=== PATIENT | female | born 1935 | race Caucasian/White ===

== ENCOUNTER 2023-10-09 18:44 | Inpatient (IN) ==
[2023-10-09] MEDS ORDERED: TYLENOL PO PRN (19:46)
[2023-10-09] MEDS ORDERED: OCEAN NASAL SPRAY NAS PRN (19:46)
[2023-10-09] MEDS ORDERED: VENTOLIN HFA IH PRN (19:55)
[2023-10-09] MEDS ORDERED: MIRALAX PO PRN (19:55)
[2023-10-09] MEDS ORDERED: CARAFATE PO SCH (20:00)
--- NOTE | 2023-10-09 20:00 | PCM ---
Date of Service Date Seen by Provider: 10/09/23 Time Seen by Provider: 08:30 Admit Day/Time Admission Date: 10/09/23 Admission Time: 19:46 Reason for Admission Chief Complaint: BILATERAL PNEUMONIA,ACUTE CVA Hospital Provider Hospital Provider: CORDELL MILNER PA-C, [facility] Primary Care Physician Primary Care Physician: JAIRON ROJAS History of Present Illness History of Present Illness: Patient was in the swingbed program and motivated with therapy. Continued to require oxygen at 2L, more with activity. She has continued to have dyspnea, worse with exertion. Today, 10/09 patient had right hand weakness/numbness. CT head suspicious for left sided CVA. Carotid US performed showing no significant stenosis, but mentions a mass. CT neck obtained showing thyroid nodule, but also mentions bilateral pneumonia. Patient is being transitioned to inpatient status for treatment of CVA and bilateral pneumonia. [facility] Medical History TIA (transient ischemic attack) G45.9 - Transient cerebral ischemic attack, unspecified (ICD-10) FHx: cholecystectomy Z83.79 - Family history of other diseases of the digestive system (ICD-10) Cataract H26.9 - Unspecified cataract (ICD-10) Thyroid disease E07.9 - Disorder of thyroid, unspecified (ICD-10) Stroke I63.9 - Cerebral infarction, unspecified (ICD-10) Osteoarthritis M19.90 - Unspecified osteoarthritis, unspecified site (ICD-10) Obesity E66.9 - Obesity, unspecified (ICD-10) CHF (congestive heart failure) I50.9 - Heart failure, unspecified (ICD-10) Melanoma C43.9 - Malignant melanoma of skin, unspecified (ICD-10) Hyperlipidemia E78.5 - Hyperlipidemia, unspecified (ICD-10) ABDIRASHID (generalized anxiety disorder) F41.1 - Generalized anxiety disorder (ICD-10) Depressed F32.A - Depression, unspecified (ICD-10) Allergic rhinitis J30.9 - Allergic rhinitis, unspecified (ICD-10) Cervical radiculopathy M54.12 - Radiculopathy, cervical region (ICD-10) COPD (chronic obstructive pulmonary disease) J44.9 - Chronic obstructive pulmonary disease, unspecified (ICD-10) Afib I48.91 - Unspecified atrial fibrillation (ICD-10) Hypertension I10 - Essential (primary) hypertension (ICD-10) GERD (gastroesophageal reflux disease) K21.9 - Gastro-esophageal reflux disease without esophagitis (ICD-10) MARCELO (obstructive sleep apnea) G47.33 - Obstructive sleep apnea (adult) (pediatric) (ICD-10) Surgical History Status post cardiac catheterization Z98.890 - Other specified postprocedural states (ICD-10) 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) H/O total hysterectomy Z90.710 - Acquired absence of both cervix and uterus (ICD-10) Family History FATHER Heart disease Mother Heart disease Social History Smoking and tobacco status: Never smoker Alcohol intake: never Allergies Allergies Allergy/AdvReac Type Severity Reaction Status Date / Time escitalopram [From Lexapro] AdvReac Verified 09/30/23 19:20 SERTRALINE AdvReac Uncoded 09/30/23 19:20 Current Medications Home Medications albuterol sulfate 90 mcg/actuation aerosol inhaler 2 inh inhalation Q6H PRN shortness of breath or wheezing 09/30/23 [History Confirmed 10/09/23 Last Taken Unknown] amiodarone 200 mg tablet 200 mg PO BID 09/30/23 [History Confirmed 10/09/23 Last Taken 10/09/23 08:00] aspirin 81 mg chewable tablet 81 mg PO DAILY 09/30/23 [History Confirmed 10/09/23 Last Taken 10/09/23 08:00] atorvastatin 80 mg tablet 80 mg PO BEDTIME 09/30/23 [History Confirmed 10/09/23 Last Taken 10/09/23 08:00] buspirone 30 mg tablet 30 mg PO BID 09/30/23 [History Confirmed 10/09/23 Last Taken 10/09/23 08:00] cetirizine 10 mg tablet 10 mg PO DAILY PRN allergy symptoms 09/30/23 [History Confirmed 10/09/23 Last Taken Unknown] cholecalciferol (vitamin D3) 50 mcg (2,000 unit) capsule 50 mcg PO DAILY 09/30/23 [History Confirmed 10/09/23 Last Taken 10/08/23 08:00] clopidogrel 75 mg tablet (Plavix) 75 mg PO DAILY 09/30/23 [History Confirmed 10/09/23 Last Taken 10/09/23 08:00] fluticasone propionate 50 mcg/actuation nasal spray,suspension (Allergy Relief (fluticasone)) 1 spray intranasal DAILY PRN allergy symptoms 09/30/23 [History Confirmed 10/09/23 Last Taken Unknown] glucosamine sulfate 500 mg tablet (Cidatrine (glucosamine)) 500 mg PO DAILY 09/30/23 [History Confirmed 10/09/23 Last Taken Unknown] ipratropium 0.5 mg-albuterol 3 mg (2.5 mg base)/3 mL nebulization soln 3 ml inhalation Q4H 09/30/23 [History Confirmed 10/09/23 Last Taken 10/09/23 14:00] metoprolol succinate 50 mg tablet,extended release 24 hr 50 mg PO DAILY 09/30/23 [History Confirmed 10/09/23 Last Taken 10/09/23 08:00] multivitamin 1 tab PO DAILY 09/30/23 [History Confirmed 10/09/23 Last Taken 10/09/23 08:00] pantoprazole 40 mg granules delayed-release for susp in packet 40 mg PO DAILY 09/30/23 [History Confirmed 10/09/23 Last Taken 10/09/23 18:00] polyethylene glycol 3350 17 gram oral powder packet 17 g PO DAILY PRN constipation 09/30/23 [History Confirmed 10/09/23 Last Taken 10/08/23 09:00] sacubitril 24 mg-valsartan 26 mg tablet (Entresto) 1 tab PO BID 09/30/23 [History Confirmed 10/10/23 Last Taken Unknown] vitamin B complex 1 tab PO DAILY 09/30/23 [History Confirmed 10/09/23 Last Taken 10/09/23 08:00] calcium 500 mg tablet 500 mg PO DAILY 10/05/23 [History Confirmed 10/09/23 Last Taken 10/09/23 08:00] sucralfate 1 gram tablet (Carafate) 1 g PO .achs 10/05/23 [History Confirmed 10/09/23 Last Taken 10/09/23 18:00] Home Acetaminophen (Acetaminophen 325 Mg Tablet) 650 mg PO Q4H PRN PRN Reason: Mild Pain Albuterol Sulfate (Albuterol Sulfate 8 Gm Inhaler) 2 puff IH Q6H PRN PRN Reason: sob Albuterol/Ipratropium (Ipratropium/Albuterol Vial.Neb) 3 ml NEB RTQID [facility] Last Admin: 10/10/23 10:00 Dose: 3 ml Amiodarone HCl (Amiodarone Hcl 200 Mg Tablet) 200 mg PO BID [facility] Last Admin: 10/10/23 08:23 Dose: 200 mg Aspirin (Aspirin 81 Mg Tab.Chew) 81 mg PO DAILY [facility] Last Admin: 10/10/23 08:23 Dose: 81 mg Atorvastatin Calcium (Atorvastatin Calcium 20 Mg Tablet) 80 mg PO BEDTIME [facility] Last Admin: 10/09/23 21:36 Dose: 80 mg Buspirone HCl (Buspirone Hcl 10 Mg Tablet) 30 mg PO BID [facility] Last Admin: 10/10/23 08:23 Dose: 30 mg Calcium Carbonate/Glycine (Calcium Carbonate 500 Mg Tab.Chew) 500 mg PO DAILY [facility] Last Admin: 10/10/23 08:23 Dose: 500 mg Cilostazol (Cilostazol 100 Mg Tablet) 50 mg PO BID [facility] Last Admin: 10/10/23 08:23 Dose: 50 mg Clopidogrel Bisulfate (Clopidogrel Bisulfate 75 Mg Tablet) 75 mg PO DAILY [facility] Last Admin: 10/10/23 08:23 Dose: 75 mg Fluticasone Propionate (Fluticasone Propionate 16 Gm Nasal [place]) 2 spray NESHA DAILY [facility] Last Admin: 10/10/23 08:24 Dose: 2 spray CEFEPIME 2 GM/D5W (Maxipime 2 Gm/50 Ml D5w) 2 gm in 50 mls @ 100 mls/hr IV Q12HR [facility] Stop: 10/12/23 19:59 Last Admin: 10/10/23 08:24 Dose: 100 mls/hr VANCOMYCIN/WATER FOR INJ (PEG) (Vancomycin 1.5 Gram/300 Ml Premix) 1.5 gm in 300 mls @ 200 mls/hr IV BEDTIME [facility] Stop: 10/13/23 20:59 Loratadine (Loratadine 10 Mg Tablet) 10 mg PO DAILY PRN PRN Reason: Allergy Symptoms Ondansetron HCl (Ondansetron Hcl/Pf 4 Mg/2 Ml Sdv) 4 mg IVP Q6H PRN PRN Reason: Nausea / Vomiting Pantoprazole Sodium (Pantoprazole Sodium 40 Mg Tablet.Dr) 40 mg PO BIDAC2 [facility] Last Admin: 10/10/23 05:45 Dose: 40 mg Polyethylene Glycol (Polyethylene Glycol 17 Gm Powd.Pack) 17 gm PO DAILY PRN PRN Reason: Constipation Saccharomyces Boulardii (Saccharomyces Boulardii 250 Mg Capsule) 250 mg PO BID [facility] Last Admin: 10/10/23 09:04 Dose: 250 mg Sodium Chloride (Sodium Chloride 40 Ml Nasal [place]) 2 spray NESHA PRN PRN PRN Reason: Dry Nasal [place] Sodium Chloride (0.9% Sodium Chloride 10 Ml Disp.Syrin) 1 syr IVF Q8HR [facility] Last Admin: 10/10/23 05:45 Dose: 1 syr Sucralfate (Sucralfate 1 Gm Tablet) 1 gm PO .achs [facility] Discontinued Medications Albuterol/Ipratropium (Ipratropium/Albuterol Vial.Neb) 3 ml NEB Q4H [facility] Last Admin: 10/10/23 04:52 Dose: 3 ml VANCOMYCIN/WATER FOR INJ (PEG) (Vancomycin 1.5 Gram/300 Ml Premix) 1.5 gm in 300 mls @ 200 mls/hr IV Q12HR [facility] Stop: 10/12/23 19:59 VANCOMYCIN/WATER FOR INJ (PEG) (Vancomycin 1 Gram/200 Ml Premix) 1 gm in 200 mls @ 200 mls/hr IV ONCE ONE Stop: 10/09/23 23:29 Last Admin: 10/09/23 22:27 Dose: 200 mls/hr VANCOMYCIN/WATER FOR INJ (PEG) (Vancomycin 750 Mg/150 Ml Bag) 750 mg in 150 mls @ 150 mls/hr IV ONCE ONE Stop: 10/10/23 00:29 Last Admin: 10/09/23 23:33 Dose: 150 mls/hr Review of Systems Constitutional: Reports Fatigue and Weakness; Denies Fever Head: Reports Normocephalic and Atraumatic Throat: Denies Sore Throat or Difficulty Swallowing Cardiovascular: Denies Chest pain, Chest Pressure or Edema Respiratory: Reports Cough and Shortness of air Gastrointestinal: Denies Nausea, Vomiting, Diarrhea, Abdominal pain or Melena Dermatologic: Denies Rashes Neurological: Reports Weakness and Problems with walking Physical examination Most Recent Vital Signs: Most Recent Vital Signs Telemetry Heart Rate 75 09/30/23 21:26 Appearance: Positive No Apparent Distress and Alert and Oriented x3 Skin: Positive [place], Warm and Good Turgor; Negative Rashes HEENT: Positive Normocephalic and Atraumatic Neck: Positive Supple and Midline Trachea Chest/Lungs: Positive Clear to Auscultation Bilaterally; Negative Rales, Rhonci or Wheezes Heart: Positive RRR GI/: Positive Soft, Nontender, Bowel Sounds Normal and No Distention Extremities: Negative Edema Neurological: Positive Alert, Oriented and 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 ) Psychiatric: Positive Oriented x4, Appropriate Mood and Appropriate Affect Imaging Imaging: EXAMINATION: HEAD CT WITHOUT CONTRAST HISTORY: Headache. TECHNIQUE: Noncontrast CT of the brain was performed with images acquired from skull base to vertex. 2-D coronal and sagittal reformatted images were obtained from the axial source images. Contrast Dose: None. CT Dose Reduction Techniques Performed: Yes. COMPARISON: None. FINDINGS: Left frontal low attenuation lesion measuring approximately 3 cm sparing of the schneider-white matter junction extending to the dural surface may reflect acute process. Brain MRI would prove definitive as deemed clinically necessary. Chronic microvascular ischemic angiopathy consistent with the patient's age. Parenchymal atrophy. Vascular calcifications. Paranasal sinuses and mastoid air cells: Visualized portions of paranasal sinuses are clear. Mastoid air cells are clear. Orbits: Normal visualized portions. Sella/Skull Base: Normal. Other: Scalp and visualized soft tissues are normal. Calvarium is normal. IMPRESSION: Left frontal low attenuation lesion may reflect acute process. Brain MRI would prove definitive as deemed clinically necessary. Findings attempted for communication to referring provider at the time of this dictation by phone by me. EXAMINATION: BILATERAL CAROTID ULTRASOUND HISTORY: Unusual headaches. Hypertension. Previous myocardial infarction. Previous TIA. COMPARISON: None available. TECHNIQUE: Sonographic evaluation of the bilateral carotid arteries was performed with schneider scale and color and spectral Doppler imaging. Ultrasound images were acquired and stored in a permanent archive FINDINGS: A 2.8 x 2.2 x 2.1 cm soft tissue nodule is identified in the anterior left neck, with a small amount of cavitation and central vascularity. Plaque distribution: Moderate bilateral carotid arterial plaque is noted. Arterial velocities measured in centimeters per second: Right common carotid artery peak systolic velocity: 147.8 Right internal carotid artery peak systolic velocity: 118.5 Right internal carotid artery end diastolic velocity: 36.3 Right ICA/CCA ratio: 0.8 Right external carotid artery peak systolic velocity: 315.3 Left common carotid artery peak systolic velocity: 102.1 Left internal carotid artery peak systolic velocity: 155.2 Left internal carotid artery end diastolic velocity: 30.8 Left ICA/CCA ratio: 1.5 Left external carotid artery peak systolic velocity: 291.6 Vertebrals: - Right: Antegrade flow with normal waveform. - Left: Antegrade flow with normal waveform. Society of Radiologists in Ultrasound (SRU) consensus statement (Radiology 2003; 229:340-346. DOI 10.1148/radiol.4522346337) was used to estimate internal carotid artery stenosis. IMPRESSION: 1. Less than 50% stenosis in the right internal carotid artery. 2. 50-69% stenosis in the left internal carotid artery. 3. Right Vertebral Artery: Antegrade. 4. Left Vertebral Artery: Antegrade. 5. A 2.8 cm cavitary mass is identified in the anterior left neck. Contrast enhanced CT of the neck is recommended for further evaluation. EXAM: CT NECK SOFT TISSUES WITH CONTRAST HISTORY: Neck mass TECHNIQUE: CT acquisition of the neck soft tissues following IV contrast administration. CT dose reduction techniques performed: Yes. Coronal and sagittal reconstructions were performed. COMPARISON: Carotid ultrasound 10/09/2023 FINDINGS: Limited evaluation of the brain parenchyma. Orbits and globes intact. Paranasal sinuses clear. Nasal cavity, nasopharynx, oropharynx, hypopharynx, larynx normal. Trachea normal. Consolidation at both lung apices Suspicious for pneumonia. Additional peripheral interstitial opacities are present which may be on the basis of chronic interstitial changes. Calcific atherosclerosis. 2.1 cm left thyroid nodule, likely corresponding to the abnormality on reference ultrasound. Limited evaluation of the oral cavity due to streak artifact from dental amalgam. Salivary glands normal. No acute osseous abnormality. Deg enerative spondylosis. No pathologically enlarged lymph nodes in the neck. Impression: 2.1 cm left thyroid nodule, likely corresponding to the abnormality on ultrasound. Recommend further evaluation with dedicated thyroid ultrasound. Otherwise no other neck mass or pathologically enlarged lymph node. Air space consolidation in both upper lobes suspicious for pneumonia with possible superimposed chronic interstitial lung changes.. Review Statement Review Statement: I have independently reviewed and interpreted the labs/EKGs/imaging that were ordered by the ER provider. I have reviewed all outside records that are available currently in our EMR including imaging/notes/labs from previous visits. Plan Plan: 1. Acute CVA - NIH 1 with right hand weakness/numbness. Improving. Abnormal CT head. Unable to do MRI due to recent cardiac stent. Spoke with Dr. Rios, neuro at [facility]. He recommends due to her predicament with recent GIB, etc, adding pletal 50 mg BID to her ASA and plavix. Still increases risk of bleeding but not as severely as eliquis. Discussed risks vs benefits with patient and she'd like to proceed. He also recommended carotid US - 50-69% stenosis of left side, outpt vascular apt recommended. Cont PTOT. Hold antihypertensives until 10/11 due to acute cva. 2. Hospital acquired pneumonia, bilateral - Cefepime/vanc, IS, sputum culture, MRSA swab, strep pneumo, legionella. Duonebs. 3. Impaired mobility with weakness and debility following two recent hospitalizations - PT/OT to eval and treat. 4. 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 Carafate QID. Repeat EGD in 6 weeks. Avoid NSAIDs. Monitor hgb. 8.2 today, was 8.5 at outside hospital. Received IV venofer 10/04. 5. Atrial fibrillation - Eliquis stopped due to recent GIB. Rate controlled. Cont amiodarone. Hold metoprolol due to acute cva. 6. CAD s/p recent stent - Cont ASA and plavix. 7. Heart failure preserved EF - Improved. EF was 35% precath, however EF returned to normal post cath/stent placement. Per cards, cont entresto and reevaluate in 6 weeks. Hold metoprolol and entresto due to acute cva. 8. COPD - Not in exacerbation. Cont inhalers 9. Hypertension - Cont home meds 10. Hx of CVA/TIA - Cont ASA and plavix, adding pletal. 11. Thyroid nodule - F/u outpatient DVT Prophylaxis: Holding in light of recent GI bleed. Time Spent: Greater than 80 minutes spent with patient, 50% of the time spent with this patient was devoted to counseling and coordination of care. [facility] minutes spent discussing advance care planning. DNI/CPR Admit to: Inpatient Discussed Plan of Care with Dr. Bernardo Rubio. Medications Medication Orders: Medications Ordered Category Date Time Status Acetaminophen [Tylenol] Meds 10/09/23 19:46 Ordered 650 mg PO Q4H PRN Albuterol Sulfate [Ventolin Hfa] Meds 10/09/23 19:55 Ordered DOSE puff IH Q6H PRN Amiodarone HCl [Cordarone] Meds 10/09/23 21:00 Ordered 200 mg PO BID Aspirin [Aspirin Chewable] Meds 10/10/23 09:00 Ordered 81 mg PO DAILY Atorvastatin Calcium [Lipitor] Meds 10/09/23 21:00 Ordered 80 mg PO BEDTIME Buspirone HCl [Buspar] Meds 10/09/23 21:00 Ordered 30 mg PO BID Cefepime 2 gm/D5w [Maxipime 2 gm/50 ml D5w] Meds 10/09/23 20:00 Ordered 2 gm in 50 ml IV Q12HR Cilostazol [Pletal] Meds 10/09/23 21:00 Ordered 50 mg PO BID Clopidogrel Bisulfate [Plavix] Meds 10/10/23 09:00 Ordered 75 mg PO DAILY Fluticasone Propionate [Flonase] Meds 10/10/23 09:00 Ordered 2 spray NESHA DAILY Ipratropium/Albuterol Neb [Duoneb] Meds 10/09/23 20:00 Ordered 3 ml NEB Q4H Ondansetron HCl/Pf [Zofran 4 mg/2 ml] Meds 10/09/23 19:46 Ordered 4 mg IVP Q6H PRN Pantoprazole Sodium [Protonix] Meds 10/09/23 21:00 Ordered 40 mg PO BIDAC2 Polyethylene Glycol 3350 [Miralax] Meds 10/09/23 19:55 Ordered 17 gm PO DAILY PRN Sodium Chloride [[place] Nasal [place]] Meds 10/09/23 19:46 Ordered 2 spray NESHA PRN PRN Sucralfate [Carafate] Meds 10/09/23 20:00 Ordered 1 gm PO .achs Vancomycin/Water For Inj (Peg) [Vancomycin 1.5 Gram/300 Meds 10/09/23 20:00 Ordered ml Premix] 1.5 gm in 300 ml IV Q12HR calcium Meds 10/10/23 09:00 Ordered 500 mg PO DAILY cetirizine Meds 10/09/23 19:55 Ordered 10 mg PO DAILY PRN
[2023-10-09 20:30] VITALS: BMI 32.4
[2023-10-09] MEDS: DUONEB NEB SCH (20:49)
[2023-10-09] MEDS ORDERED: CLARITIN PO PRN (20:53)
[2023-10-09] MEDS: MAXIPIME 2 GM/50 ML D5W 2 GM/50 ML BAG IV SCH ×2 (21:36)
[2023-10-09] MEDS: LIPITOR PO SCH (21:36)
[2023-10-09] MEDS: CORDARONE PO SCH (21:37)
[2023-10-09] MEDS: PROTONIX PO SCH (21:39)
[2023-10-09] MEDS: PLETAL PO SCH (21:40)
[2023-10-09] MEDS: BUSPAR PO SCH (21:40)
[2023-10-09] MEDS ORDERED: VANCOMYCIN 1 GRAM/200 ML PREMIX 1 GM/200 ML BAG IV ONE (22:30)
[2023-10-09] MEDS ORDERED: VANCOMYCIN 750 MG/150 ML BAG 750 MG/150 ML BAG IV ONE (23:30)
[2023-10-10] MEDS: DUONEB NEB SCH ×6 (00:42→22:01)
[2023-10-10] MEDS: PROTONIX PO SCH ×2 (05:45→16:33)
[2023-10-10 06:47] LABS: BASOPHILS % (AUTO) 0.5 % (0.0-3.0); EOSINOPHILS # (AUTO) 0.4 K/ul (0.0-0.7); EOSINOPHILS % (AUTO) 4.2 % (0.0-7.0); HEMATOCRIT 25.3 % (37.0-47.0); HEMOGLOBIN 7.7 g/dl (12.0-16.0); IMMATURE GRANULOCYTE % (AUTO) 0.2 % (0.0-5.0); LYMPHOCYTES # (AUTO) 1.5 K/uL (0.60-3.4); MEAN CORPUSCULAR HEMOGLOBIN 31.6 pg (27.0-31.0); MEAN CORPUSCULAR HGB CONC 30.4 (31.8-35.4); MEAN CORPUSCULAR VOLUME 103.7 fl (81.0-99.0); MONOCYTES # (AUTO) 0.9 K/uL (0.4-2.0); MONOCYTES % (AUTO) 10.7 (0-10); NEUTROPHILS # (AUTO) 5.7 K/ul (2.0-6.9); NEUTROPHILS % (AUTO) 66.4 % (42.2-75.2); PLATELET COUNT 305 10^3/uL (140-440); RDW COEFFICIENT OF VARIATION 13.5 % (11.6-14.8); RED BLOOD COUNT 2.44 10^6/ul (4.20-5.40); WHITE BLOOD COUNT 8.57 K/ul (4.6-10.2)
[2023-10-10 06:58] LABS: ALANINE AMINOTRANSFERASE 16.8 U/L (0-35); ALBUMIN 3.44 g/dL (3.5-5.0); ALKALINE PHOSPHATASE 71.4 U/L (53-141); ASPARTATE AMINO TRANSFERASE 26.7 U/L (14-36); BILIRUBIN,TOTAL 0.41 mg/dL (0.2-1.3); CALCIUM 8.23 mg/dL (8.4-10.2); CARBON DIOXIDE 23.4 mmol/L (22-30.0); CHLORIDE 103.8 mmol/L (98-107); CREATININE 0.77 mg/dL (0.60-1.30); GLUCOSE 101.8 mg/dL (74-106); MAGNESIUM 1.97 mg/dL (1.6-2.3); POTASSIUM 3.93 mmol/L (3.5-5.1); SODIUM 134.5 mmol/L (134.5-145); TOTAL PROTEIN 6.33 g/dL (6.3-8.2)
[2023-10-10] MEDS: TUMS CHEWABLE PO SCH (08:23)
[2023-10-10] MEDS: PLETAL PO SCH ×2 (08:23→20:04)
[2023-10-10] MEDS: PLAVIX PO SCH (08:23)
[2023-10-10] MEDS: BUSPAR PO SCH ×2 (08:23→20:04)
[2023-10-10] MEDS: ASPIRIN CHEWABLE PO SCH (08:23)
[2023-10-10] MEDS: CORDARONE PO SCH ×2 (08:23→20:04)
[2023-10-10] MEDS: FLONASE NAS SCH (08:24)
[2023-10-10] MEDS: MAXIPIME 2 GM/50 ML D5W 2 GM/50 ML BAG IV SCH ×2 (08:24→20:05)
[2023-10-10] MEDS: FLORASTOR PO SCH ×2 (09:04→20:04)
[2023-10-10 09:15] LABS: ABSOLUTE RETICS # 0.101; RETICULOCYTE % 4.09 %; RETICULOCYTE HEMOGLOBIN 31.6
[2023-10-10 10:02] LABS: FOLATE > 20.00 ng/mL
[2023-10-10 10:07] LABS: IRON 76.3 ug/dL (37-170)
--- NOTE | 2023-10-10 10:57 | PCM.PROG ---
Date/Time Seen Date Seen by Provider: 10/10/23 Time Seen by Provider: 08:30 Provider Provider: CORDELL MILNER PA-C, [facility] Chief Complaint Chief Complaint: BILATERAL PNEUMONIA,ACUTE CVA Subjective Subjective: Patient is feeling down about everything this morning. She had several sticks to get blood. She's frustrated but optimistic about hopefully getting home eventually. Denies cp. Has sob but not worse than last few days. Objective Appearance: Positive No Apparent Distress and Alert and Oriented x3 Chest/Lungs: Positive Clear to Auscultation Bilaterally; Negative Rales, Rhonci or Wheezes Heart: Positive RRR GI/: Positive Soft, Nontender, Bowel Sounds Normal and No Distention Neurological: Positive Alert, Oriented and Other (+generalized weakness. 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 No focal deficits. Facial expressions symmetric. ) Vital Signs Vital Signs: Vital Signs: Last 24 Hours 10/09/23 19:17 10/09/23 19:17 10/09/23 19:30 Temperature 98.1 F Temperature Source Temporal Artery Scan Pulse Rate 81 Respiratory Rate 18 Blood Pressure Blood Pressure Mean Blood Pressure Right Arm 105/54 Blood Pressure Location Blood Pressure Position Sitting O2 Sat by Pulse Oximetry 93 L Oxygen Delivery Method Nasal Cannula Nasal Cannula Oxygen Flow Rate 2 2 Height 5 ft 6 in Weight 201 lb Telemetry Type Remote Telemetry Telemetry Monitoring Started Telemetry Heart Rate 80 Telemetry SPO2 EKG [place] Interval EKG QRS Interval 0.07 Telemetry Strip Reading a fib 10/09/23 20:01 10/09/23 20:56 10/09/23 22:00 Temperature 98.2 F Temperature Source Oral Pulse Rate 81 Respiratory Rate 18 Blood Pressure 105/54 L Blood Pressure Mean 71 Blood Pressure Right Arm Blood Pressure Location Right Arm Blood Pressure Position Supine O2 Sat by Pulse Oximetry 94 L 93 L Oxygen Delivery Method Nasal Cannula Nasal Cannula Oxygen Flow Rate 2 2 Height 5 ft 6 in Weight 201 lb Telemetry Type Telemetry Monitoring Telemetry Heart Rate Telemetry SPO2 EKG [place] Interval EKG QRS Interval Telemetry Strip Reading 10/10/23 01:00 10/10/23 02:00 10/10/23 05:02 Temperature 96.9 F L Temperature Source Temporal Artery Scan Pulse Rate 78 Respiratory Rate 20 Blood Pressure 132/65 Blood Pressure Mean 87 Blood Pressure Right Arm Blood Pressure Location Left Arm Blood Pressure Position Supine O2 Sat by Pulse Oximetry 95 96 Oxygen Delivery Method Nasal Cannula Nasal Cannula Oxygen Flow Rate 2 2 Height Weight Telemetry Type Remote Telemetry Telemetry Monitoring Continues Telemetry Heart Rate 77 Telemetry SPO2 95 EKG [place] Interval EKG QRS Interval 0.08 Telemetry Strip Reading a fib 10/10/23 05:18 10/10/23 05:18 10/10/23 07:00 Temperature 96.4 F L Temperature Source Temporal Artery Scan Pulse Rate 79 Respiratory Rate 20 Blood Pressure 127/62 Blood Pressure Mean 83 Blood Pressure Right Arm Blood Pressure Location Left Arm Blood Pressure Position Supine O2 Sat by Pulse Oximetry 96 Oxygen Delivery Method Nasal Cannula Oxygen Flow Rate 2 Height Weight 203 lb Telemetry Type Remote Telemetry Telemetry Monitoring Continues Telemetry Heart Rate 79 Telemetry SPO2 96 EKG [place] Interval 0.20 EKG QRS Interval 0.08 Telemetry Strip Reading SR 10/10/23 08:00 10/10/23 09:58 10/10/23 10:00 Temperature 98 F Temperature Source Oral Pulse Rate 83 Respiratory Rate 20 Blood Pressure 112/56 L Blood Pressure Mean 74 Blood Pressure Right Arm Blood Pressure Location Left Arm Blood Pressure Position Sitting O2 Sat by Pulse Oximetry 96 100 Oxygen Delivery Method Nasal Cannula Nasal Cannula Nasal Cannula Oxygen Flow Rate 2 2 2 Height Weight Telemetry Type Telemetry Monitoring Telemetry Heart Rate Telemetry SPO2 EKG [place] Interval EKG QRS Interval Telemetry Strip Reading Lab Results Lab Results: Lab Results: Last 24 Hours 10/10/23 10/10/23 10/10/23 Unknown 08:30 06:04 WBC 8.57 RBC 2.44 L Hgb 7.7 L Hct 25.3 L MCV 103.7 H MCH 31.6 H MCHC 30.4 L RDW Coeff of Shaila 13.5 Plt Count 305 Immature Gran % (Auto) 0.2 Neut % (Auto) 66.4 Lymph % (Auto) 18.0 [place] % (Auto) 10.7 H Eos % (Auto) 4.2 Baso % (Auto) 0.5 Reticulocyte % (Auto) 4.09 Neut # (Auto) 5.7 Lymph # (Auto) 1.5 [place] # (Auto) 0.9 Eos # (Auto) 0.4 Baso # (Auto) 0.0 Immature Gran # (Auto) 0.0 Absolute Retic 0.1010 Retic Hgb Equivalent 31.6 Sodium 134.5 Potassium 3.93 Chloride 103.8 Carbon Dioxide 23.4 Anion Gap 11.23 BUN 15.0 Creatinine 0.77 Estimated GFR (MDRD) 71.00 BUN/Creatinine Ratio 19.48 Glucose 101.8 Calcium 8.23 L Magnesium 1.97 Ferritin 55.40 Total Bilirubin 0.41 AST 26.7 ALT 16.8 Alkaline Phosphatase 71.4 Total Protein 6.33 Albumin 3.44 L Globulin 2.89 Albumin/Globulin Ratio 1.19 Folate > 20.00 Procalcitonin < 0.05 Miscellaneous Test Blood Type A POSITIVE Antibody Screen Negative 10/09/23 21:20 WBC RBC Hgb Hct MCV MCH MCHC RDW Coeff of Shaila Plt Count Immature Gran % (Auto) Neut % (Auto) Lymph % (Auto) [place] % (Auto) Eos % (Auto) Baso % (Auto) Reticulocyte % (Auto) Neut # (Auto) Lymph # (Auto) [place] # (Auto) Eos # (Auto) Baso # (Auto) Immature Gran # (Auto) Absolute Retic Retic Hgb Equivalent Sodium Potassium Chloride Carbon Dioxide Anion Gap BUN Creatinine Estimated GFR (MDRD) BUN/Creatinine Ratio Glucose Calcium Magnesium Ferritin Total Bilirubin AST ALT Alkaline Phosphatase Total Protein Albumin Globulin Albumin/Globulin Ratio Folate Procalcitonin Miscellaneous Test Sent to [facility] Blood Type Antibody Screen Additional Comments Additional Comments: I have independently reviewed and interpreted the labs/EKGs/imaging ordered during this hospital stay. I have reviewed outside records that are available in our EMR that pertain to medical stay including imaging/notes/labs from previous visits. Active Medications Active Medications: Medications Generic Name Dose Route Start Last Admin Trade Name Freq PRN Reason Stop Dose Admin Acetaminophen 650 mg 10/09/23 19:46 Acetaminophen 325 Mg Tablet PO Q4H PRN Mild Pain Albuterol Sulfate 2 puff 10/09/23 19:55 Albuterol Sulfate 8 Gm Inhaler IH Q6H PRN sob Albuterol/Ipratropium 3 ml 10/10/23 10:00 10/10/23 10:00 Ipratropium/Albuterol Vial.Neb NEB 3 ml RTQID HOLLY Administration Amiodarone HCl 200 mg 10/09/23 21:00 10/10/23 08:23 Amiodarone Hcl 200 Mg Tablet PO 200 mg BID HOLLY Administration Aspirin 81 mg 10/10/23 09:00 10/10/23 08:23 Aspirin 81 Mg Tab.Chew PO 81 mg DAILY HOLLY Administration Atorvastatin Calcium 80 mg 10/09/23 21:00 10/09/23 21:36 Atorvastatin Calcium 20 Mg Tablet PO 80 mg BEDTIME HOLLY Administration Buspirone HCl 30 mg 10/09/23 21:00 10/10/23 08:23 Buspirone Hcl 10 Mg Tablet PO 30 mg BID HOLLY Administration Calcium Carbonate/Glycine 500 mg 10/10/23 09:00 10/10/23 08:23 Calcium Carbonate 500 Mg Tab.Chew PO 500 mg DAILY HOLLY Administration Cilostazol 50 mg 10/09/23 21:00 10/10/23 08:23 Cilostazol 100 Mg Tablet PO 50 mg BID HOLLY Administration Clopidogrel Bisulfate 75 mg 10/10/23 09:00 10/10/23 08:23 Clopidogrel Bisulfate 75 Mg Tablet PO 75 mg DAILY HOLLY Administration Fluticasone Propionate 2 spray 10/10/23 09:00 10/10/23 08:24 Fluticasone Propionate 16 Gm Nasal [place] NESHA 2 spray DAILY HOLLY Administration CEFEPIME 2 GM/D5W 2 gm in 50 mls @ 100 mls/hr 10/09/23 20:00 10/10/23 08:24 Maxipime 2 Gm/50 Ml D5w IV 10/12/23 19:59 100 mls/hr Q12HR HOLLY Administration VANCOMYCIN/WATER FOR INJ (PEG) 1.5 gm in 300 mls @ 200 mls/hr 10/10/23 21:00 Vancomycin 1.5 Gram/300 Ml Premix IV 10/13/23 20:59 BEDTIME HOLLY Loratadine 10 mg 10/09/23 20:53 Loratadine 10 Mg Tablet PO DAILY PRN Allergy Symptoms Ondansetron HCl 4 mg 10/09/23 19:46 Ondansetron Hcl/Pf 4 Mg/2 Ml Sdv IVP Q6H PRN Nausea / Vomiting Pantoprazole Sodium 40 mg 10/09/23 21:00 10/10/23 05:45 Pantoprazole Sodium 40 Mg Tablet.Dr PO 40 mg BIDAC2 HOLLY Administration Polyethylene Glycol 17 gm 10/09/23 19:55 Polyethylene Glycol 17 Gm Powd.Pack PO DAILY PRN Constipation Saccharomyces Boulardii 250 mg 10/10/23 09:00 10/10/23 09:04 Saccharomyces Boulardii 250 Mg Capsule PO 250 mg BID HOLLY Administration Sodium Chloride 2 spray 10/09/23 19:46 Sodium Chloride 40 Ml Nasal [place] NESHA PRN PRN Dry Nasal [place] Sodium Chloride 1 syr 10/10/23 05:00 10/10/23 05:45 0.9% Sodium Chloride 10 Ml Disp.Syrin IVF 1 syr Q8HR HOLLY Administration Sucralfate 1 gm 10/09/23 20:00 Sucralfate 1 Gm Tablet PO .achs HOLLY Plan Plan: 1. Acute CVA - NIH 1 with right hand weakness/numbness. Improving. Abnormal CT head. Unable to do MRI due to recent cardiac stent. Spoke with Dr. Rios, neuro at [facility]. He recommends due to her predicament with recent GIB, etc, adding pletal 50 mg BID to her ASA and plavix. Still increases risk of bleeding but not as severely as eliquis. Discussed risks vs benefits with patient and she'd like to proceed. He also recommended carotid US - 50-69% stenosis of left side, outpt vascular apt recommended. Cont PTOT. Hold antihypertensives until 10/11 due to acute cva. 2. Hospital acquired pneumonia, bilateral - Cefepime/vanc, IS, sputum culture, MRSA swab, strep pneumo, legionella. Duonebs. 3. Impaired mobility with weakness and debility following two recent hospitalizations - PT/OT to eval and treat. 4. 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 Carafate QID. Repeat EGD in 6 weeks. Avoid NSAIDs. Monitor hgb. 8.2 today, was 8.5 at outside hospital. Received IV venofer 10/04. 5. Atrial fibrillation - Eliquis stopped due to recent GIB. Rate controlled. Cont amiodarone. Hold metoprolol due to acute cva. 6. CAD s/p recent stent - Cont ASA and plavix. 7. Heart failure preserved EF - Improved. EF was 35% precath, however EF returned to normal post cath/stent placement. Per cards, cont entresto and reevaluate in 6 weeks. Hold metoprolol and entresto due to acute cva. 8. COPD - Not in exacerbation. Cont inhalers 9. Hypertension - Cont home meds 10. Hx of CVA/TIA - Cont ASA and plavix, adding pletal. 11. Thyroid nodule - F/u outpatient 12. Acute on chronic anemia - <8 today, with recent cardiac stent will give 1U PRBCs. DVT Prophylaxis: Holding in light of recent GI bleed. Review Statement Review Statement: I have personally discussed and reviewed the patient's visit/currently labs/imaging/decision making with Dr. Rubio, my supervising attending. Greater that 50 minutes spent with patient, 50% of the time spent with this patient was devoted to counseling and coordination of care.
[2023-10-10] MEDS ORDERED: LASIX IVP STA (10:58)
[2023-10-10] MEDS ORDERED: TYLENOL PO STA (10:58)
[2023-10-10] MEDS ORDERED: LASIX ONE (13:07)
[2023-10-10] MEDS ORDERED: TYLENOL ONE (13:07)
[2023-10-10] MEDS: VANCOMYCIN 1.5 GRAM/300 ML PREMIX 1.5 GM/300 ML BAG IV SCH ×2 (13:11→21:01)
[2023-10-10 18:18] LABS: HEMATOCRIT 29.6 % (37.0-47.0); HEMOGLOBIN 9.8 g/dl (12.0-16.0)
[2023-10-10] MEDS: LIPITOR PO SCH (20:05)
[2023-10-10] MEDS ORDERED: VANCOMYCIN 1.25 GM/250 ML BAG 1.25 GM/250 ML BAG IV SCH (21:00)
[2023-10-11] MEDS: PROTONIX PO SCH ×2 (05:16→17:26)
[2023-10-11] MEDS: DUONEB NEB SCH ×4 (05:28→19:42)
[2023-10-11 06:19] LABS: BASOPHILS % (AUTO) 0.2 % (0.0-3.0); EOSINOPHILS # (AUTO) 0.3 K/ul (0.0-0.7); HEMATOCRIT 27.8 % (37.0-47.0); HEMOGLOBIN 9.2 g/dl (12.0-16.0); IMMATURE GRANULOCYTE % (AUTO) 0.4 % (0.0-5.0); LYMPHOCYTES % (AUTO) 10.3 (10.0-50.0); MEAN CORPUSCULAR HEMOGLOBIN 31.9 pg (27.0-31.0); MEAN CORPUSCULAR HGB CONC 33.1 (31.8-35.4); MEAN CORPUSCULAR VOLUME 96.5 fl (81.0-99.0); MONOCYTES # (AUTO) 0.8 K/uL (0.4-2.0); MONOCYTES % (AUTO) 8.5 (0-10); NEUTROPHILS # (AUTO) 7.3 K/ul (2.0-6.9); NEUTROPHILS % (AUTO) 77.6 % (42.2-75.2); PLATELET COUNT 330 10^3/uL (140-440); RDW COEFFICIENT OF VARIATION 13.9 % (11.6-14.8); RED BLOOD COUNT 2.88 10^6/ul (4.20-5.40); WHITE BLOOD COUNT 9.39 K/ul (4.6-10.2)
[2023-10-11 06:33] LABS: ALBUMIN 3.53 g/dL (3.5-5.0); ALKALINE PHOSPHATASE 76.2 U/L (53-141); BILIRUBIN,TOTAL 0.76 mg/dL (0.2-1.3); BLOOD UREA NITROGEN 14.9 mg/dL (7-17); CALCIUM 8.27 mg/dL (8.4-10.2); CHLORIDE 101.6 mmol/L (98-107); CREATININE 0.66 mg/dL (0.60-1.30); GLUCOSE 112.9 mg/dL (74-106); POTASSIUM 3.55 mmol/L (3.5-5.1); SODIUM 132.8 mmol/L (134.5-145); TOTAL PROTEIN 6.46 g/dL (6.3-8.2)
[2023-10-11] MEDS: ASPIRIN CHEWABLE PO SCH (08:14)
[2023-10-11] MEDS: FLORASTOR PO SCH ×2 (08:15→20:10)
[2023-10-11] MEDS: CORDARONE PO SCH ×2 (08:15→20:10)
[2023-10-11] MEDS: PLAVIX PO SCH (08:15)
[2023-10-11] MEDS: TUMS CHEWABLE PO SCH (08:15)
[2023-10-11] MEDS: BUSPAR PO SCH ×2 (08:15→20:10)
[2023-10-11] MEDS: FLONASE NAS SCH (08:16)
[2023-10-11] MEDS: MAXIPIME 2 GM/50 ML D5W 2 GM/50 ML BAG IV SCH ×3 (08:16→20:18)
[2023-10-11] MEDS: PLETAL PO SCH ×2 (08:16→20:10)
[2023-10-11] MEDS: ENTRESTO 24 MG-26 MG TABLET PO SCH ×2 (09:19→20:10)
[2023-10-11] MEDS: TOPROL XL PO SCH (09:19)
[2023-10-11] MEDS: ZOFRAN 4 MG/2 ML IVP PRN ×2 (09:25→17:25)
--- NOTE | 2023-10-11 09:31 | PCM.PROG ---
Date/Time Seen Date Seen by Provider: 10/11/23 Time Seen by Provider: 08:40 Provider Provider: CORDELL MILNER PA-C, [facility] Chief Complaint Chief Complaint: BILATERAL PNEUMONIA,ACUTE CVA Subjective Subjective: Patient states she is feeling better today. Her right hand weakness/numbness is improved, she's able to write again. She feels her breathing is mildly improved. Objective Appearance: Positive No Apparent Distress and Alert and Oriented x3 Chest/Lungs: Positive Clear to Auscultation Bilaterally; Negative Rales, Rhonci or Wheezes Heart: Positive RRR GI/: Positive Soft, Nontender, Bowel Sounds Normal and No Distention Neurological: Positive Alert, Oriented and Other (+generalized weakness. 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 No focal deficits. Facial expressions symmetric. ) Vital Signs Vital Signs: Vital Signs: Last 24 Hours 10/10/23 09:58 10/10/23 10:00 10/10/23 13:00 Temperature 98 F Temperature Source Oral Pulse Rate 83 Respiratory Rate 20 Blood Pressure 112/56 L Blood Pressure Mean 74 Blood Pressure Location Left Arm Blood Pressure Position Sitting O2 Sat by Pulse Oximetry 96 100 Oxygen Delivery Method Nasal Cannula Nasal Cannula Oxygen Flow Rate 2 2 Weight Telemetry Type Remote Telemetry Telemetry Monitoring Continues Telemetry Heart Rate 86 Telemetry SPO2 95 EKG [place] Interval 0.22 H EKG QRS Interval 0.08 Telemetry Strip Reading SR 10/10/23 13:44 10/10/23 13:57 10/10/23 13:59 Temperature 98 F 98.2 F Temperature Source Pulse Rate 88 90 Respiratory Rate 16 16 Blood Pressure 128/59 L 135/68 Blood Pressure Mean 82 90 Blood Pressure Location Blood Pressure Position O2 Sat by Pulse Oximetry 98 Oxygen Delivery Method Nasal Cannula Oxygen Flow Rate 2 Weight Telemetry Type Telemetry Monitoring Telemetry Heart Rate Telemetry SPO2 EKG [place] Interval EKG QRS Interval Telemetry Strip Reading 10/10/23 14:00 10/10/23 14:59 10/10/23 15:59 Temperature 97.7 F 98 F 97.9 F Temperature Source Oral Pulse Rate 91 86 80 Respiratory Rate 19 18 18 Blood Pressure 140/67 156/66 H 142/62 H Blood Pressure Mean 91 96 88 Blood Pressure Location Right Arm Blood Pressure Position Sitting O2 Sat by Pulse Oximetry 98 Oxygen Delivery Method Nasal Cannula Oxygen Flow Rate 3 Weight Telemetry Type Telemetry Monitoring Telemetry Heart Rate Telemetry SPO2 EKG KS Interval EKG QRS Interval Telemetry Strip Reading 10/10/23 16:54 10/10/23 18:00 10/10/23 19:00 Temperature 98 F 98.2 F Temperature Source Oral Pulse Rate 84 88 Respiratory Rate 18 20 Blood Pressure 138/68 131/68 Blood Pressure Mean 91 89 Blood Pressure Location Right Arm Blood Pressure Position Sitting O2 Sat by Pulse Oximetry 96 Oxygen Delivery Method Nasal Cannula Oxygen Flow Rate 3 Weight Telemetry Type Remote Telemetry Telemetry Monitoring Continues Telemetry Heart Rate 88 Telemetry SPO2 97 EKG [place] Interval 0.17 EKG QRS Interval 0.09 Telemetry Strip Reading SR 10/10/23 20:00 10/10/23 20:00 10/10/23 20:46 Temperature 97.0 F L Temperature Source Temporal Artery Scan Pulse Rate 87 Respiratory Rate 18 Blood Pressure 118/57 L Blood Pressure Mean 77 Blood Pressure Location Right Arm Blood Pressure Position Sitting O2 Sat by Pulse Oximetry 98 99 Oxygen Delivery Method Nasal Cannula Nasal Cannula Nasal Cannula Oxygen Flow Rate 2 2 3 Weight Telemetry Type Telemetry Monitoring Telemetry Heart Rate Telemetry SPO2 EKG [place] Interval EKG QRS Interval Telemetry Strip Reading 10/11/23 00:55 10/11/23 05:11 10/11/23 05:11 Temperature 96.7 F L Temperature Source Temporal Artery Scan Pulse Rate 94 Respiratory Rate 18 Blood Pressure 119/63 Blood Pressure Mean 81 Blood Pressure Location Left Arm Blood Pressure Position Supine O2 Sat by Pulse Oximetry 94 L Oxygen Delivery Method Nasal Cannula Oxygen Flow Rate 3 Weight 203 lb Telemetry Type Remote Telemetry Telemetry Monitoring Continues Telemetry Heart Rate 82 Telemetry SPO2 96 EKG [place] Interval EKG QRS Interval 0.08 Telemetry Strip Reading a fib 10/11/23 05:26 10/11/23 07:00 10/11/23 07:54 Temperature Temperature Source Pulse Rate Respiratory Rate Blood Pressure Blood Pressure Mean Blood Pressure Location Blood Pressure Position O2 Sat by Pulse Oximetry 95 Oxygen Delivery Method Nasal Cannula Nasal Cannula Oxygen Flow Rate 2 2 Weight Telemetry Type Remote Telemetry Telemetry Monitoring Continues Telemetry Heart Rate 91 Telemetry SPO2 96 EKG [place] Interval 0.22 H EKG QRS Interval 0.10 Telemetry Strip Reading SR WITH 1ST DEGREE AVB Lab Results Lab Results: Lab Results: Last 24 Hours 10/11/23 10/11/23 10/10/23 06:00 05:42 Unknown WBC 9.39 RBC 2.88 L Hgb 9.2 L Hct 27.8 L MCV 96.5 D MCH 31.9 H MCHC 33.1 RDW Coeff of Shaila 13.9 Plt Count 330 Immature Gran % (Auto) 0.4 Neut % (Auto) 77.6 H Lymph % (Auto) 10.3 [place] % (Auto) 8.5 Eos % (Auto) 3.0 Baso % (Auto) 0.2 Reticulocyte % (Auto) Neut # (Auto) 7.3 H Lymph # (Auto) 1.0 [place] # (Auto) 0.8 Eos # (Auto) 0.3 Baso # (Auto) 0.0 Immature Gran # (Auto) 0.0 Absolute Retic Retic Hgb Equivalent Sodium 132.8 L Potassium 3.55 Chloride 101.6 Carbon Dioxide 25.0 Anion Gap 9.75 BUN 14.9 Creatinine 0.66 Estimated GFR (MDRD) 85.00 BUN/Creatinine Ratio 22.57 Glucose 112.9 H Calcium 8.27 L Iron TIBC % Saturation Ferritin 55.40 Total Bilirubin 0.76 AST 29.0 ALT 17.0 Alkaline Phosphatase 76.2 Total Protein 6.46 Albumin 3.53 Globulin 2.93 Albumin/Globulin Ratio 1.20 Vitamin B12 Folate > 20.00 Blood Type Antibody Screen Crossmatch (AH) 10/10/23 10/10/23 18:16 08:30 WBC RBC Hgb 9.8 L Hct 29.6 L MCV MCH MCHC RDW Coeff of Shaila Plt Count Immature Gran % (Auto) Neut % (Auto) Lymph % (Auto) [place] % (Auto) Eos % (Auto) Baso % (Auto) Reticulocyte % (Auto) 4.09 Neut # (Auto) Lymph # (Auto) [place] # (Auto) Eos # (Auto) Baso # (Auto) Immature Gran # (Auto) Absolute Retic 0.1010 Retic Hgb Equivalent 31.6 Sodium Potassium Chloride Carbon Dioxide Anion Gap BUN Creatinine Estimated GFR (MDRD) BUN/Creatinine Ratio Glucose Calcium Iron 76.3 TIBC 314 % Saturation 24 Ferritin Total Bilirubin AST ALT Alkaline Phosphatase Total Protein Albumin Globulin Albumin/Globulin Ratio Vitamin B12 412 Folate Blood Type A POSITIVE Antibody Screen Negative Crossmatch (AHG) See Detail Additional Comments Additional Comments: I have independently reviewed and interpreted the labs/EKGs/imaging ordered during this hospital stay. I have reviewed outside records that are available in our EMR that pertain to medical stay including imaging/notes/labs from previous visits. Active Medications Active Medications: Medications Generic Name Dose Route Start Last Admin Trade Name Freq PRN Reason Stop Dose Admin Acetaminophen 650 mg 10/09/23 19:46 Acetaminophen 325 Mg Tablet PO Q4H PRN Mild Pain Albuterol Sulfate 2 puff 10/09/23 19:55 Albuterol Sulfate 8 Gm Inhaler IH Q6H PRN sob Albuterol/Ipratropium 3 ml 10/10/23 10:00 10/11/23 05:28 Ipratropium/Albuterol Vial.Neb NEB 3 ml RTQID HOLLY Administration Amiodarone HCl 200 mg 10/09/23 21:00 10/11/23 08:15 Amiodarone Hcl 200 Mg Tablet PO 200 mg BID HOLLY Administration Aspirin 81 mg 10/10/23 09:00 10/11/23 08:14 Aspirin 81 Mg Tab.Chew PO 81 mg DAILY HOLLY Administration Atorvastatin Calcium 80 mg 10/09/23 21:00 10/10/23 20:05 Atorvastatin Calcium 20 Mg Tablet PO 80 mg BEDTIME HOLLY Administration Buspirone HCl 30 mg 10/09/23 21:00 10/11/23 08:15 Buspirone Hcl 10 Mg Tablet PO 30 mg BID HOLLY Administration Calcium Carbonate/Glycine 500 mg 10/10/23 09:00 10/11/23 08:15 Calcium Carbonate 500 Mg Tab.Chew PO 500 mg DAILY HOLLY Administration Cilostazol 50 mg 10/09/23 21:00 10/11/23 08:16 Cilostazol 100 Mg Tablet PO 50 mg BID HOLLY Administration Clopidogrel Bisulfate 75 mg 10/10/23 09:00 10/11/23 08:15 Clopidogrel Bisulfate 75 Mg Tablet PO 75 mg DAILY HOLLY Administration Fluticasone Propionate 2 spray 10/10/23 09:00 10/11/23 08:16 Fluticasone Propionate 16 Gm Nasal [place] NESHA 2 spray DAILY HOLLY Administration VANCOMYCIN/WATER FOR INJ (PEG) 1.5 gm in 300 mls @ 200 mls/hr 10/10/23 21:00 10/10/23 21:01 Vancomycin 1.5 Gram/300 Ml Premix IV 10/13/23 20:59 200 mls/hr BEDTIME HOLLY Administration CEFEPIME 2 GM/D5W 2 gm in 50 mls @ 100 mls/hr 10/11/23 07:30 10/11/23 08:16 Maxipime 2 Gm/50 Ml D5w IV 10/14/23 07:29 100 mls/hr Q8HR HOLLY Administration Loratadine 10 mg 10/09/23 20:53 Loratadine 10 Mg Tablet PO DAILY PRN Allergy Symptoms Metoprolol Succinate 50 mg 10/11/23 09:00 10/11/23 09:19 Metoprolol Succinate 50 Mg Tab.Er.24h PO 50 mg DAILY HOLLY Administration Ondansetron HCl 4 mg 10/09/23 19:46 10/11/23 09:25 Ondansetron Hcl/Pf 4 Mg/2 Ml Sdv IVP 4 mg Q6H PRN Administration Nausea / Vomiting Pantoprazole Sodium 40 mg 10/09/23 21:00 10/11/23 05:16 Pantoprazole Sodium 40 Mg Tablet.Dr PO 40 mg BIDAC2 HOLLY Administration Polyethylene Glycol 17 gm 10/09/23 19:55 Polyethylene Glycol 17 Gm Powd.Pack PO DAILY PRN Constipation Saccharomyces Boulardii 250 mg 10/10/23 09:00 10/11/23 08:15 Saccharomyces Boulardii 250 Mg Capsule PO 250 mg BID HOLLY Administration Sacubitril/Valsartan 1 each 10/11/23 09:00 10/11/23 09:19 Sacubitril/Valsartan 1 Each Tablet PO 1 each BID HOLLY Administration Sodium Chloride 2 spray 10/09/23 19:46 Sodium Chloride 40 Ml Nasal [place] NESHA PRN PRN Dry Nasal [place] Sodium Chloride 1 syr 10/10/23 05:00 10/11/23 05:16 0.9% Sodium Chloride 10 Ml Disp.Syrin IVF 1 syr Q8HR HOLLY Administration Sucralfate 1 gm 10/09/23 20:00 Sucralfate 1 Gm Tablet PO .achs HOLLY Plan Plan: 1. Acute CVA - Improved. Abnormal CT head. Unable to do MRI due to recent cardiac stent. Spoke with Dr. Rios, neuro at [facility]. He recommends due to her predicament with recent GIB, etc, adding pletal 50 mg BID to her ASA and plavix. Still increases risk of bleeding but not as severely as eliquis. Discussed risks vs benefits with patient and she'd like to proceed. He also recommended carotid US - 50-69% stenosis of left side, outpt vascular apt recommended. Cont PTOT. Restarting antihypertensives today 10/11. 2. Hospital acquired pneumonia, bilateral - Cefepime/vanc, IS, sputum culture, MRSA swab, strep pneumo, legionella. Duonebs. 3. Impaired mobility with weakness and debility following two recent hospitalizations - PT/OT to eval and treat. 4. 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 Carafate QID. Repeat EGD in 6 weeks. Avoid NSAIDs. Hgb was 8.5 at outside hospital. Received IV venofer 10/04. 5. Atrial fibrillation - Eliquis stopped due to recent GIB. Rate controlled. C ont amiodarone and metoprolol. 6. CAD s/p recent stent - Cont ASA and plavix. 7. Heart failure preserved EF - Improved. EF was 35% precath, however EF returned to normal post cath/stent placement. Per cards, cont entresto and reevaluate in 6 weeks. 8. COPD - Not in exacerbation. Cont inhalers 9. Hypertension - Cont home meds 10. Hx of CVA/TIA - Cont ASA and plavix, adding pletal. 11. Thyroid nodule - F/u outpatient 12. Acute on chronic anemia - <8 today on 10/10, with recent cardiac stent 1U PRBCs was given. Hgb 9.2 today. Cont to monitor. DVT Prophylaxis: Holding in light of recent GI bleed. Dispo: Pt hoping to return to [facility] once medically stable. Review Statement Review Statement: I have personally discussed and reviewed the patient's visit/currently labs/imaging/decision making with Dr. Rubio, my supervising attending. Greater that 50 minutes spent with patient, 50% of the time spent with this patient was devoted to counseling and coordination of care.
[2023-10-11] MEDS: LIPITOR PO SCH (20:10)
[2023-10-11] MEDS: VANCOMYCIN 1.5 GRAM/300 ML PREMIX 1.5 GM/300 ML BAG IV SCH (21:07)
[2023-10-12] MEDS: MAXIPIME 2 GM/50 ML D5W 2 GM/50 ML BAG IV SCH (05:18)
[2023-10-12] MEDS: PROTONIX PO SCH ×2 (05:19→16:47)
[2023-10-12] MEDS: DUONEB NEB SCH ×4 (05:24→20:18)
[2023-10-12] MEDS: BUSPAR PO SCH ×2 (09:02→21:54)
[2023-10-12] MEDS: ENTRESTO 24 MG-26 MG TABLET PO SCH ×2 (09:03→21:55)
[2023-10-12] MEDS: TOPROL XL PO SCH (09:03)
[2023-10-12] MEDS: TUMS CHEWABLE PO SCH (09:03)
[2023-10-12] MEDS: FLORASTOR PO SCH ×2 (09:03→21:55)
[2023-10-12] MEDS: PLAVIX PO SCH (09:04)
[2023-10-12] MEDS: ASPIRIN CHEWABLE PO SCH (09:04)
[2023-10-12] MEDS: CORDARONE PO SCH ×2 (09:04→21:55)
[2023-10-12] MEDS: PLETAL PO SCH ×2 (09:05→21:53)
[2023-10-12] MEDS: FLONASE NAS SCH (09:07)
--- NOTE | 2023-10-12 12:44 | PCM.PROG ---
Date/Time Seen Date Seen by Provider: 10/12/23 Time Seen by Provider: 08:45 Provider Provider[facility] LINCOLN TOWNSEND[facility] Chief Complaint Chief Complaint: BILATERAL PNEUMONIA,ACUTE CVA Subjective Subjective: Reports SOB is better today. Coughing up yellow sputum. Able to hold utensils in her hand, but unable to pick them up. Objective Appearance: Positive No Apparent Distress and Alert and Oriented x3 Chest/Lungs: Positive Symmetrical With Equal Breath Sounds, Rhonci (RUL) and Good Air Movement all 4 Lung [place]: Positive RRR and Pulses Normal GI/: Positive Soft, Nontender, Bowel Sounds Normal and No Distention Musculoskeletal: Positive Not Examined Neurological: Positive Sensation Intact, Motor intact, Alert, Oriented and Other (+generalized weakness. 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 No focal deficits. Facial expressions symmetric. ) Vital Signs Vital Signs: Vital Signs: Last 24 Hours 10/11/23 13:00 10/11/23 14:00 10/11/23 18:00 Temperature 99.1 F 98.5 F Temperature Source Oral Oral Pulse Rate 78 76 Pulse Rate [Apical] Respiratory Rate 23 H 18 Blood Pressure 112/57 L 95/50 L Blood Pressure Mean 75 65 Blood Pressure Location Left Arm Left Arm Blood Pressure Position Sitting Sitting O2 Sat by Pulse Oximetry 97 96 Oxygen Delivery Method Nasal Cannula Nasal Cannula Oxygen Flow Rate 2 3 Telemetry Type Remote Telemetry Telemetry Monitoring Continues Irregular Telemetry Rate (Approximate) 70-80 BPM Telemetry Heart Rate 78 Telemetry SPO2 EKG PA Interval EKG QRS Interval 0.09 Telemetry Strip Reading AFIB 10/11/23 18:59 10/11/23 19:41 10/11/23 20:00 Temperature Temperature Source Pulse Rate Pulse Rate [Apical] Respiratory Rate Blood Pressure Blood Pressure Mean Blood Pressure Location Blood Pressure Position O2 Sat by Pulse Oximetry 95 Oxygen Delivery Method Nasal Cannula Nasal Cannula Oxygen Flow Rate 2 2 Telemetry Type Remote Telemetry Telemetry Monitoring Continues Irregular Telemetry Rate (Approximate) 70-80 BPM Telemetry Heart Rate 76 Telemetry SPO2 94 EKG PA Interval EKG QRS Interval 0.07 Telemetry Strip Reading afib 10/11/23 20:50 10/12/23 00:58 10/12/23 05:13 Temperature 96.9 F L 96.9 F L Temperature Source Temporal Artery Scan Temporal Artery Scan Pulse Rate 82 90 Pulse Rate [Apical] Respiratory Rate 18 20 Blood Pressure 96/50 L 137/68 Blood Pressure Mean 65 91 Blood Pressure Location Left Arm Left Arm Blood Pressure Position Supine Sitting O2 Sat by Pulse Oximetry 93 L 90 L Oxygen Delivery Method Nasal Cannula Nasal Cannula Oxygen Flow Rate 2 2 Telemetry Type Remote Telemetry Telemetry Monitoring Continues Irregular Telemetry Rate (Approximate) Telemetry Heart Rate 71 Telemetry SPO2 EKG PA Interval EKG QRS Interval 0.08 Telemetry Strip Reading afib 10/12/23 05:36 10/12/23 07:00 10/12/23 08:00 Temperature Temperature Source Pulse Rate Pulse Rate [Apical] 88 Respiratory Rate 20 Blood Pressure Blood Pressure Mean Blood Pressure Location Blood Pressure Position O2 Sat by Pulse Oximetry 96 Oxygen Delivery Method Nasal Cannula Nasal Cannula Oxygen Flow Rate 2 2 Telemetry Type Remote Telemetry Telemetry Monitoring Continues Irregular Telemetry Rate (Approximate) Telemetry Heart Rate 81 Telemetry SPO2 96 EKG PA Interval 0.20 EKG QRS Interval 0.08 Telemetry Strip Reading NSR 10/12/23 09:56 10/12/23 09:56 Temperature 97.2 F L Temperature Source Tympanic Pulse Rate 83 Pulse Rate [Apical] Respiratory Rate 20 Blood Pressure 98/62 Blood Pressure Mean 74 Blood Pressure Location Left Arm Blood Pressure Position Sitting O2 Sat by Pulse Oximetry 100 96 Oxygen Delivery Method Nasal Cannula Nasal Cannula Oxygen Flow Rate 2 2 Telemetry Type Telemetry Monitoring Irregular Telemetry Rate (Approximate) Telemetry Heart Rate Telemetry SPO2 EKG PA Interval EKG QRS Interval Telemetry Strip Reading Additional Comments Additional Comments: I have independently reviewed and interpreted the labs/EKGs/imaging ordered during this hospital stay. I have reviewed outside records that are available in our EMR that pertain to medical stay including imaging/notes/labs from previous visits. Active Medications Active Medications: Medications Generic Name Dose Route Start Last Admin Trade Name Freq PRN Reason Stop Dose Admin Acetaminophen 650 mg 10/09/23 19:46 Acetaminophen 325 Mg Tablet PO Q4H PRN Mild Pain Albuterol Sulfate 2 puff 10/09/23 19:55 Albuterol Sulfate 8 Gm Inhaler IH Q6H PRN sob Albuterol/Ipratropium 3 ml 10/10/23 10:00 10/12/23 09:43 Ipratropium/Albuterol Vial.Neb NEB 3 ml RTQID HOLLY Administration Amiodarone HCl 200 mg 10/09/23 21:00 10/12/23 09:04 Amiodarone Hcl 200 Mg Tablet PO 200 mg BID HOLLY Administration Aspirin 81 mg 10/10/23 09:00 10/12/23 09:04 Aspirin 81 Mg Tab.Chew PO 81 mg DAILY HOLLY Administration Atorvastatin Calcium 80 mg 10/09/23 21:00 10/11/23 20:10 Atorvastatin Calcium 20 Mg Tablet PO 80 mg BEDTIME HOLLY Administration Buspirone HCl 30 mg 10/09/23 21:00 10/12/23 09:02 Buspirone Hcl 10 Mg Tablet PO 30 mg BID HOLLY Administration Calcium Carbonate/Glycine 500 mg 10/10/23 09:00 10/12/23 09:03 Calcium Carbonate 500 Mg Tab.Chew PO 500 mg DAILY HOLLY Administration Cefdinir 300 mg 10/13/23 09:00 Cefdinir 300 Mg Capsule PO 10/22/23 21:00 Q12HR HOLLY Cilostazol 50 mg 10/09/23 21:00 10/12/23 09:05 Cilostazol 100 Mg Tablet PO 50 mg BID HOLLY Administration Clopidogrel Bisulfate 75 mg 10/10/23 09:00 10/12/23 09:04 Clopidogrel Bisulfate 75 Mg Tablet PO 75 mg DAILY [facility] Administration Fluticasone Propionate 2 spray 10/10/23 09:00 10/12/23 09:07 Fluticasone Propionate 16 Gm Nasal [place] NESHA 2 spray DAILY [facility] Administration Loratadine 10 mg 10/09/23 20:53 Loratadine 10 Mg Tablet PO DAILY PRN Allergy Symptoms Metoprolol Succinate 50 mg 10/11/23 09:00 10/12/23 09:03 Metoprolol Succinate 50 Mg Tab.Er.24h PO 50 mg DAILY HOLLY Administration Ondansetron HCl 4 mg 10/09/23 19:46 10/11/23 17:25 Ondansetron Hcl/Pf 4 Mg/2 Ml Sdv IVP 4 mg Q6H PRN Administration Nausea / Vomiting Pantoprazole Sodium 40 mg 10/09/23 21:00 10/12/23 05:19 Pantoprazole Sodium 40 Mg Tablet.Dr PO 40 mg BIDAC2 HOLLY Administration Polyethylene Glycol 17 gm 10/09/23 19:55 Polyethylene Glycol 17 Gm Powd.Pack PO DAILY PRN Constipation Saccharomyces Boulardii 250 mg 10/10/23 09:00 10/12/23 09:03 Saccharomyces Boulardii 250 Mg Capsule PO 250 mg BID HOLLY Administration Sacubitril/Valsartan 1 each 10/11/23 09:00 10/12/23 09:03 Sacubitril/Valsartan 1 Each Tablet PO 1 each BID HOLLY Administration Sodium Chloride 2 spray 10/09/23 19:46 Sodium Chloride 40 Ml Nasal Hamm[place] NESHA PRN PRN Dry Nasal Pasage Sodium Chloride 1 syr 10/10/23 05:00 10/12/23 05:18 0.9% Sodium Chloride 10 Ml Disp.Syrin IVF 1 syr Q8HR HOLLY Administration Sucralfate 1 gm 10/09/23 20:00 Sucralfate 1 Gm Tablet PO .achs HOLLY Plan Plan: 1. Acute CVA - Improved. Abnormal CT head. Unable to do MRI due to recent cardiac stent. Spoke with Dr. Rios, neuro at [facility]. He recommends due to her predicament with recent GIB, etc, adding pletal 50 mg BID to her ASA and plavix. Still increases risk of bleeding but not as severely as eliquis. Discussed risks vs benefits with patient and she'd like to proceed. He also recommended carotid US - 50-69% stenosis of left side, outpt vascular apt recommended. Cont PT/OT. Restarted antihypertensives 10/11. 2. Hospital acquired pneumonia, bilateral - Improving, stopping Cefepime/vanc today - transition to PO omnicef, IS, sputum culture, MRSA swab, strep pneumo, legionella. Duonebs. 3. Impaired mobility with weakness and debility following two recent hospitalizations - PT/OT to eval and treat. 4. 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 Carafate QID. Repeat EGD in 6 weeks. Avoid NSAIDs. Hgb was 8.5 at outside hospital. Received IV venofer 10/04. 5. Atrial fibrillation - Eliquis stopped due to recent GIB. Rate controlled. Cont amiodarone and metoprolol. 6. CAD s/p recent stent - Cont ASA and plavix. 7. Heart failure preserved EF - Improved. EF was 35% precath, however EF returned to normal post cath/stent placement. Per cards, cont entresto and reevaluate in 6 weeks. 8. COPD - Not in exacerbation. Cont inhalers 9. Hypertension - Cont home meds 10. Hx of CVA/TIA - Cont ASA and plavix, adding pletal. 11. Thyroid nodule - F/u outpatient 12. Acute on chronic anemia - <8 today on 10/10, with recent cardiac stent 1U PRBCs was given. Hgb 9.2. Cont to monitor. DVT Prophylaxis: Holding in light of recent GI bleed. Dispo: Pt hoping to return to swingbed once medically stable. Review Statement Review Statement: I have personally discussed and reviewed the patient's visit/currently labs/imaging/decision making with Dr. Rubio, my supervising attending. Greater that 50 minutes spent with patient, 50% of the time spent with this patient was devoted to counseling and coordination of care.
--- NOTE | 2023-10-12 13:52 | RS.PTINEVL ---
Subjective Patient information Date of Evaluation: 10/12/23 Date of Arrival on Unit: 10/09/23 Admitted From:: In-House Transfer Diagnosis: Pneumonia and CVA Usual Living Arrangement: Alone Living Arrangement Comments: Lives alone has a paid caregiver 1x a week. pt states she could increase her hours if needed when she goes home. Home Environment: House Medical History Comments:: HTN, CVA/TIA, CHR, Arthritis, Cancer (Melanoma), Anxiety, GERD Surgical History Comments:: Cholecystectomy, Hysterectomy Medications: see chart Subjective Information/ Patient Comments:: Ms. Astudillo states she is feeling better. She has been working her right hand and states she is moving it better. She can now touch her thumb to her other fingers. States she can also hold a pen/pencil and draw a line through a word when working on word find puzzles. Reports SOA with activity. 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 She has oxygen in place at 2L and saturation is 99%. Range of Motion ROM Right Upper Extremity AROM: WFL's Left Upper Extremity AROM: WFL's Right Lower Extremity AROM: WFL's Left Lower Extremity AROM: WFL's Muscle Strength Muscle Strength Comments:: Bilateral LE hip strength 4/5 with flexion, knee flexion and extension 4/5, ankle DF 4/5. Demonstrates equal meter tester polyphase strength. Sensation Sensation Right Lower Extremity: Intact/Normal Left Lower Extremity: Intact/Normal Comments: States right thumb still slightly tingling. Balance Sitting Balance and Reactions Static Sitting Balance: Good Dynamic Sitting Balance: Fair (+) Standing Balance and Reactions Static Standing Balance: Fair Dynamic Standing Balance: Fair Comments Balance Assessment Comments: Tinetti score 16/28, 18/28 or less indicates High Fall Risk Functional Mobility Transfers Sit to Stand: CGA, Min Assist, 1 person assist and Verbal Cues Stand to Sit: CGA, Min Assist, 1 person assist, Verbal Cues and Tactile Cues Safety Awareness Safety Awareness: Fair ORTIZ INDEX SCORE: NA Ambulation Ambulation Weight Bearing Status: FWB Assistive Device Used: Rolling Walker Orthotic/Prosthetic Device: No Distance: 12 feet total Assistance needed with Ambulation: CGA, Min Assist, 1 person assist, Verbal Cues and Tactile Cues Gait Deviations: Narrow Based gait, Shuffling gait, Forward posture and Short stride Ambulation Comments: Oxygen turned up to 3L with activity. O2 sat decreased quickly once she started walking. After 3-4 steps, oxygen to 86%. Assisted patient with turning walker and advised her to perform pursed lip breathing while returning to the chair. O2 dropped to 76% by the time she got to the chair. Allowed patient to focus on breathing. O2 quickly returned in the 80's and then to mid 90's. while seated in the chair, her sister helped her change vests. During this activity, her O2 sat decreased to 86%. and then returned to mid 90's afterward. Factors Affecting Ambulation: Decreased Balance, Breathing/O2 Saturation, Weakness and Limited Endurance Treatment time Time with patient Length of Evaluation: 23 mins Total treatment time: 25 Assessment Assessment Problem List:: Decreased level of function, Requires training/education, Decreased safety/Risk of falls and Weakness Rehab Potential: Good Further Therapy Indicated?: Yes Candidate for Swing Bed for Therapy Services?: Yes Evaluation Complexity: HISTORY: Medium, EXAM OF BODY SYSTEMS: Medium, CLINICAL PRESENTATION: Medium and CLINICAL DECISION MAKING: Medium Patient's Goal(s): Her goal is to return home. Short Term Goals GOAL #1: pt demonstrates rolling and scooting in bed independently. Goal to be met by: 10/15/23 GOAL #2: Transfer sup to/from sit independently. Goal to be met by: 10/15/23 GOAL #3: Transfer sit to/from stand SBA Goal to be met by: 10/15/23 GOAL #4: pt amb 30 feet with rwx with CGA of 1 with consistent foot clearance Goal to be met by: 10/15/23 GOAL #5: Improve BLE strength to 4 to 4+/5. 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 GOAL #1: Transfer sup to/from sit to/from stand independently Goal to be met by: 10/20/23 GOAL #2: pt amb with RW functional household distances w/ SBA to independent Goal to be met by: 10/20/23 GOAL #3: Ascend/descend 1 step with CGA Goal to be met by: 10/20/23 Plan Plan of Care: Therapeutic EX, Neuromuscular Re-Educ, Therapeutic Activity and Self-Care/Home Management Frequency of Treatment: 1-2 X day, as tolerated Duration of Treatment: 2 Weeks Anticipated Discharge Destination: Home Treatment Diagnosis (ICD 10 Codes): R26.2 difficulty walking, Z91.81 High Risk for falls, Z74.0 Reduced mobility Has the Physician been added for Co-signature?: Yes
[2023-10-12] MEDS: LIPITOR PO SCH (21:55)
[2023-10-12] MEDS: CARAFATE PO SCH (21:55)
[2023-10-13] MEDS: DUONEB NEB SCH ×2 (04:50→10:07)
[2023-10-13 05:38] LABS: BASOPHILS % (AUTO) 0.2 % (0.0-3.0); EOSINOPHILS # (AUTO) 0.3 K/ul (0.0-0.7); HEMATOCRIT 26.3 % (37.0-47.0); HEMOGLOBIN 8.4 g/dl (12.0-16.0); IMMATURE GRANULOCYTE % (AUTO) 0.2 % (0.0-5.0); LYMPHOCYTES # (AUTO) 1.2 K/uL (0.60-3.4); LYMPHOCYTES % (AUTO) 13.5 (10.0-50.0); MEAN CORPUSCULAR HEMOGLOBIN 30.9 pg (27.0-31.0); MEAN CORPUSCULAR HGB CONC 31.9 (31.8-35.4); MEAN CORPUSCULAR VOLUME 96.7 fl (81.0-99.0); MONOCYTES % (AUTO) 11.4 (0-10); NEUTROPHILS # (AUTO) 6.1 K/ul (2.0-6.9); NEUTROPHILS % (AUTO) 71.7 % (42.2-75.2); PLATELET COUNT 297 10^3/uL (140-440); RDW COEFFICIENT OF VARIATION 13.4 % (11.6-14.8); RED BLOOD COUNT 2.72 10^6/ul (4.20-5.40); WHITE BLOOD COUNT 8.54 K/ul (4.6-10.2)
[2023-10-13 05:42] VITALS: PULSE 78
[2023-10-13 05:51] LABS: ALANINE AMINOTRANSFERASE 17.3 U/L (0-35); ALBUMIN 3.37 g/dL (3.5-5.0); ALKALINE PHOSPHATASE 86.1 U/L (53-141); ASPARTATE AMINO TRANSFERASE 34.8 U/L (14-36); BILIRUBIN,TOTAL 0.56 mg/dL (0.2-1.3); BLOOD UREA NITROGEN 13.3 mg/dL (7-17); CALCIUM 8.39 mg/dL (8.4-10.2); CARBON DIOXIDE 25.9 mmol/L (22-30.0); CHLORIDE 102.4 mmol/L (98-107); CREATININE 0.78 mg/dL (0.60-1.30); GLUCOSE 100.7 mg/dL (74-106); POTASSIUM 3.78 mmol/L (3.5-5.1); SODIUM 133.5 mmol/L (134.5-145); TOTAL PROTEIN 6.23 g/dL (6.3-8.2)
[2023-10-13] MEDS: PROTONIX PO SCH (05:51)
[2023-10-13] MEDS: CARAFATE PO SCH ×2 (05:52→10:56)
[2023-10-13] MEDS: FLONASE NAS SCH (08:26)
[2023-10-13] MEDS: ASPIRIN CHEWABLE PO SCH (08:27)
[2023-10-13] MEDS: BUSPAR PO SCH (08:27)
[2023-10-13] MEDS: ENTRESTO 24 MG-26 MG TABLET PO SCH (08:27)
[2023-10-13] MEDS: PLETAL PO SCH (08:28)
[2023-10-13] MEDS: TOPROL XL PO SCH (08:30)
[2023-10-13] MEDS: TUMS CHEWABLE PO SCH (08:30)
[2023-10-13] MEDS: FLORASTOR PO SCH (08:31)
[2023-10-13] MEDS: CORDARONE PO SCH (08:31)
[2023-10-13] MEDS: PLAVIX PO SCH (08:31)
[2023-10-13] MEDS ORDERED: OMNICEF PO SCH (09:00)
[2023-10-13 10:16] VITALS: BP 90/46; RESP 16; TEMP 97
--- NOTE | 2023-10-13 12:13 | PCM.PROG ---
Date/Time Seen Date Seen by Provider: 10/13/23 Time Seen by Provider: 08:50 Provider Provider: LINCOLN TOWNSEND, [facility] Chief Complaint Chief Complaint: BILATERAL PNEUMONIA,ACUTE CVA Subjective Subjective: No events overnight. Feeling even better today. States sputum is now light yellow/clear. Hopes to work more with therapy now that she is on the mend. Objective Appearance: Positive No Apparent Distress and Alert and Oriented x3 Chest/Lungs: Positive Symmetrical With Equal Breath Sounds, Clear to Auscultation Bilaterally and Good Air Movement all 4 Lung [place]: Positive RRR and Pulses Normal GI/: Positive Soft, Nontender and Bowel Sounds Normal Musculoskeletal: Positive Not Examined Neurological: Positive Sensation Intact, Motor intact, Alert and Oriented Vital Signs Vital Signs: Vital Signs: Last 24 Hours 10/12/23 13:00 10/12/23 13:39 10/12/23 14:00 Temperature 97.6 F Temperature Source Tympanic Pulse Rate 80 Respiratory Rate 20 Blood Pressure 95/68 Blood Pressure Mean 77 Blood Pressure Location Left Arm Blood Pressure Position Sitting O2 Sat by Pulse Oximetry 96 94 L Oxygen Delivery Method Nasal Cannula Nasal Cannula Oxygen Flow Rate 2 2 Weight Telemetry Type Remote Telemetry Telemetry Monitoring Continues Telemetry Heart Rate 82 Telemetry SPO2 95 EKG OH Interval 0.22 H EKG QRS Interval 0.08 Telemetry Strip Reading SR with 1st degree AVB. 10/12/23 17:03 10/12/23 19:00 10/12/23 20:00 Temperature 97.4 F L Temperature Source Temporal Artery Scan Pulse Rate 80 Respiratory Rate 20 Blood Pressure 109/53 L Blood Pressure Mean 71 Blood Pressure Location Left Arm Blood Pressure Position Sitting O2 Sat by Pulse Oximetry 96 94 L Oxygen Delivery Method Nasal Cannula Nasal Cannula Oxygen Flow Rate 2 2 Weight Telemetry Type Remote Telemetry Telemetry Monitoring Continues Telemetry Heart Rate 78 Telemetry SPO2 94 EKG OH Interval 0.24 H EKG QRS Interval 0.07 Telemetry Strip Reading SR WITH 1ST DEGREE AVB 10/12/23 20:00 10/12/23 21:17 10/13/23 01:00 Temperature 97.7 F Temperature Source Temporal Artery Scan Pulse Rate 81 Respiratory Rate 18 Blood Pressure 102/59 L Blood Pressure Mean 73 Blood Pressure Location Left Arm Blood Pressure Position Supine O2 Sat by Pulse Oximetry 94 L Oxygen Delivery Method Nasal Cannula Nasal Cannula Oxygen Flow Rate 2 2 Weight Telemetry Type Remote Telemetry Telemetry Monitoring Continues Telemetry Heart Rate 71 Telemetry SPO2 93 EKG OH Interval 0.23 H EKG QRS Interval 0.07 Telemetry Strip Reading SR WITH 1ST DEGREE AVB 10/13/23 04:48 10/13/23 05:31 10/13/23 05:31 Temperature 97.6 F Temperature Source Temporal Artery Scan Pulse Rate 78 Respiratory Rate 20 Blood Pressure 153/70 H Blood Pressure Mean 97 Blood Pressure Location Left Arm Blood Pressure Position Supine O2 Sat by Pulse Oximetry 94 L 94 L Oxygen Delivery Method Nasal Cannula Nasal Cannula Oxygen Flow Rate 2 2 Weight 208 lb 2 oz Telemetry Type Telemetry Monitoring Telemetry Heart Rate Telemetry SPO2 EKG OH Interval EKG QRS Interval Telemetry Strip Reading 10/13/23 07:00 10/13/23 08:00 10/13/23 10:00 Temperature 97 F L Temperature Source Temporal Artery Scan Pulse Rate 78 Respiratory Rate 16 Blood Pressure 90/46 L Blood Pressure Mean 60 Blood Pressure Location Left Arm Blood Pressure Position O2 Sat by Pulse Oximetry 99 Oxygen Delivery Method Nasal Cannula Nasal Cannula Oxygen Flow Rate 2 3 Weight Telemetry Type Remote Telemetry Telemetry Monitoring Continues Telemetry Heart Rate 73 Telemetry SPO2 96 EKG OH Interval 0.20 EKG QRS Interval 0.06 Telemetry Strip Reading SR with 1 AVB. Lab Results Lab Results: Lab Results: Last 24 Hours 10/13/23 10/12/23 10/10/23 05:04 20:30 08:30 WBC 8.54 RBC 2.72 L Hgb 8.4 L Hct 26.3 L MCV 96.7 MCH 30.9 MCHC 31.9 RDW Coeff of Shaila 13.4 Plt Count 297 Immature Gran % (Auto) 0.2 Neut % (Auto) 71.7 Lymph % (Auto) 13.5 Mccone % (Auto) 11.4 H Eos % (Auto) 3.0 Baso % (Auto) 0.2 Neut # (Auto) 6.1 Lymph # (Auto) 1.2 Mccone # (Auto) 1.0 Eos # (Auto) 0.3 Baso # (Auto) 0.0 Immature Gran # (Auto) 0.0 Sodium 133.5 L Potassium 3.78 Chloride 102.4 Carbon Dioxide 25.9 Anion Gap 8.98 BUN 13.3 Creatinine 0.78 Estimated GFR (MDRD) 70.00 BUN/Creatinine Ratio 17.05 Glucose 100.7 Calcium 8.39 L Ferritin 55.40 Total Bilirubin 0.56 AST 34.8 ALT 17.3 Alkaline Phosphatase 86.1 Total Protein 6.23 L Albumin 3.37 L Globulin 2.86 Albumin/Globulin Ratio 1.17 Folate > 20.00 Vancomycin Trough 12.568 Additional Comments Additional Comments: I have independently reviewed and interpreted the labs/EKGs/imaging ordered during this hospital stay. I have reviewed outside records that are available in our EMR that pertain to medical stay including imaging/notes/labs from previous visits. Active Medications Active Medications: Medications Generic Name Dose Route Start Last Admin Trade Name Freq PRN Reason Stop Dose Admin Acetaminophen 650 mg 10/09/23 19:46 Acetaminophen 325 Mg Tablet PO Q4H PRN Mild Pain Albuterol Sulfate 2 puff 10/09/23 19:55 Albuterol Sulfate 8 Gm Inhaler IH Q6H PRN sob Albuterol/Ipratropium 3 ml 10/10/23 10:00 10/13/23 10:07 Ipratropium/Albuterol Vial.Neb NEB 3 ml RTQID HOLLY Administration Amiodarone HCl 200 mg 10/09/23 21:00 10/13/23 08:31 Amiodarone Hcl 200 Mg Tablet PO 200 mg BID HOLLY Administration Aspirin 81 mg 10/10/23 09:00 10/13/23 08:27 Aspirin 81 Mg Tab.Chew PO 81 mg DAILY HOLLY Administration Atorvastatin Calcium 80 mg 10/09/23 21:00 10/12/23 21:55 Atorvastatin Calcium 20 Mg Tablet PO 80 mg BEDTIME HOLLY Administration Buspirone HCl 30 mg 10/09/23 21:00 10/13/23 08:27 Buspirone Hcl 10 Mg Tablet PO 30 mg BID HOLLY Administration Calcium Carbonate/Glycine 500 mg 10/10/23 09:00 10/13/23 08:30 Calcium Carbonate 500 Mg Tab.Chew PO 500 mg DAILY HOLLY Administration Cefdinir 300 mg 10/13/23 09:00 10/13/23 08:26 Cefdinir 300 Mg Capsule PO 10/22/23 21:00 300 mg Q12HR HOLLY Administration Cilostazol 50 mg 10/09/23 21:00 10/13/23 08:28 Cilostazol 100 Mg Tablet PO 50 mg BID HOLLY Administration Clopidogrel Bisulfate 75 mg 10/10/23 09:00 10/13/23 08:31 Clopidogrel Bisulfate 75 Mg Tablet PO 75 mg DAILY [facility] Administration Fluticasone Propionate 2 spray 10/10/23 09:00 10/13/23 08:26 Fluticasone Propionate 16 Gm Nasal [place] NESHA 2 spray DAILY [facility] Administration Loratadine 10 mg 10/09/23 20:53 Loratadine 10 Mg Tablet PO DAILY PRN Allergy Symptoms Metoprolol Succinate 50 mg 10/11/23 09:00 10/13/23 08:30 Metoprolol Succinate 50 Mg Tab.Er.24h PO 50 mg DAILY HOLLY Administration Ondansetron HCl 4 mg 10/09/23 19:46 10/11/23 17:25 Ondansetron Hcl/Pf 4 Mg/2 Ml Sdv IVP 4 mg Q6H PRN Administration Nausea / Vomiting Pantoprazole Sodium 40 mg 10/09/23 21:00 10/13/23 05:51 Pantoprazole Sodium 40 Mg Tablet. PO 40 mg BIDAC2 HOLLY Administration Polyethylene Glycol 17 gm 10/09/23 19:55 Polyethylene Glycol 17 Gm Powd.Pack PO DAILY PRN Constipation Saccharomyces Boulardii 250 mg 10/10/23 09:00 10/13/23 08:31 Saccharomyces Boulardii 250 Mg Capsule PO 250 mg BID HOLLY Administration Sacubitril/Valsartan 1 each 10/11/23 09:00 10/13/23 08:27 Sacubitril/Valsartan 1 Each Tablet PO 1 each BID HOLYL Administration Sodium Chloride 2 spray 10/09/23 19:46 Sodium Chloride 40 Ml Nasal Apollo NESHA PRN PRN Dry Nasal Pasage Sodium Chloride 1 syr 10/10/23 05:00 10/13/23 05:53 0.9% Sodium Chloride 10 Ml Disp.Syrin IVF 1 syr Q8HR HOLLY Administration Sucralfate 1 gm 10/12/23 21:00 10/13/23 10:56 Sucralfate 1 Gm Tablet PO 1 gm ACHS2 HOLLY Administration Plan Plan: 1. Acute CVA - Improved. Abnormal CT head. Unable to do MRI due to recent cardiac stent. Spoke with Dr. Rios, neuro at [facility]. He recommends due to her predicament with recent GIB, etc, adding pletal 50 mg BID to her ASA and plavix. Still increases risk of bleeding but not as severely as eliquis. Discussed risks vs benefits with patient and she'd like to proceed. He also recommended carotid US - 50-69% stenosis of left side, outpt vascular apt recommended. Cont PT/OT. Restarted antihypertensives 10/11. 2. Hospital acquired pneumonia, bilateral - Improving, transition to PO omnicef today, IS, sputum culture pending, MRSA swab negative, strep pneumo and legionella still pending. Duonebs. 3. Impaired mobility with weakness and debility following two recent hospitalizations - PT/OT to eval and treat. 4. 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 Carafate QID. Repeat EGD in 6 weeks. Avoid NSAIDs. Hgb was 8.5 at outside hospital. Received IV venofer 10/04. 5. Atrial fibrillation - Eliquis stopped due to recent GIB. Rate controlled. Cont amiodarone and metoprolol. 6. CAD s/p recent stent - Cont ASA and plavix. 7. Heart failure preserved EF - Improved. EF was 35% precath, however EF returned to normal post cath/stent placement. Per cards, cont entresto and reevaluate in 6 weeks. 8. COPD - Not in exacerbation. Cont inhalers 9. Hypertension - Cont home meds 10. Hx of CVA/TIA - Cont ASA and plavix, adding pletal. 11. Thyroid nodule - F/u outpatient 12. Acute on chronic anemia - <8 today on 10/10, with recent cardiac stent 1U PRBCs was given. Hgb 9.2. Cont to monitor. DVT Prophylaxis: Holding in light of recent GI bleed. Dispo: d/c to swingbed today Review Statement Review Statement: I have personally discussed and reviewed the patient's visit/currently labs/imaging/decision making with Dr. Rubio, my supervising attending. Greater that 50 minutes spent with patient, 50% of the time spent with this patient was devoted to counseling and coordination of care.
--- NOTE | 2023-10-13 12:21 | DCSUM ---
Admission Date Admission Date: 10/09/23 Discharge Date Discharge Date: 10/13/23 Admission Diagnosis Admission Diagnosis: 1. Acute CVA 2. Hospital acquired pneumonia, bilateral 3. Impaired mobility with weakness and debility following two recent hospitalizations 4. 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 Atrial fibrillation 6. CAD s/p recent stent 7. Heart failure preserved EF 8. COPD 9. Hypertension 10. Hx of CVA/TIA 11. Thyroid nodule Discharge Diagnosis Discharge Diagnosis: 1. Acute CVA - Improved. Abnormal CT head. Unable to do MRI due to recent cardiac stent. Spoke with Dr. Rios, neuro at [facility]. He recommends due to her predicament with recent GIB, etc, adding pletal 50 mg BID to her ASA and plavix. Still increases risk of bleeding but not as severely as eliquis. Discussed risks vs benefits with patient and she'd like to proceed. He also recommended carotid US - 50-69% stenosis of left side, outpt vascular apt recommended. Cont PT/OT. Restarted antihypertensives 10/11. 2. Hospital acquired pneumonia, bilateral - Improving, stopping Cefepime/vanc today - transition to PO omnicef, IS, sputum culture, MRSA swab, strep pneumo, legionella. Duonebs. 3. Impaired mobility with weakness and debility following two recent hospitalizations - PT/OT to eval and treat. 4. 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 Carafate QID. Repeat EGD in 6 weeks. Avoid NSAIDs. Hgb was 8.5 at outside hospital. Received IV venofer 10/04. 5. Atrial fibrillation - Eliquis stopped due to recent GIB. Rate controlled. Cont amiodarone and metoprolol. 6. CAD s/p recent stent - Cont ASA and plavix. 7. Heart failure preserved EF - Improved. EF was 35% precath, however EF returned to normal post cath/stent placement. Per cards, cont entresto and reevaluate in 6 weeks. 8. COPD - Not in exacerbation. Cont inhalers 9. Hypertension - Cont home meds 10. Hx of CVA/TIA - Cont ASA and plavix, adding pletal. 11. Thyroid nodule - F/u outpatient 12. Acute on chronic anemia - <8 today on 10/10, with recent cardiac stent 1U PRBCs was given. Hgb 9.2. Cont to monitor. Hospital Provider Hospital Provider: [facility] Primary Care Physician: JAIRON ROJAS Summary of History and Physical Summary of History and Physical: 87 yo female comes to [facility] from [facility] for admission to [facility] due to impaired mobility/weakness due to recent course of events. She presented to [facility] for SOB, fatigue, and nausea on 09/25/23. On day of admission at approximately 0230 she could not catch her breath. Upon arrival to the ER, she was placed on 4L due to hypoxia. Patient reported ongoing orthopnea over the last several weeks, fatigue with activity, and BLE edema. Last echo in 2015 noted mild diastolic dysfunction. Had URI symptoms several weeks prior of cough, body aches, and diarrhea. Work-up revealed elevated BNP of 2295, troponins of 416 and 426, WBC 11.4, chest x-ray with mild patchy airspace opacities bilaterally with differentials of pulmonary edema and/or pneumonia. She was given lasix with improvement of SOB. UA showed 15 WBCs and 4+ bacteria. She was placed on heparin gtt due to elevated troponin. Patient was then admitted to hospitalist with cardiology consult. Shortly after arrival to the floor, patient went into Afib RVR with rate in 140s-150s. Was placed on cardizem and amiodarone drip. Transitioned to PO metoprolol and amiodarone. Echo was completed and showed EF of 35% with mid to apical septal lateral and apical segments hypocontractility, cannot rule out Takotsutbo's cardiomyopathy. She was placed on Entresto and transitioned from IV lasix to PO. Cardiac catheterization was completed on 09/28/23 to r/o Takotsubo's cardiomyopathy and revealed single-vessel mid LAD 80% stenosis, LV function recovered to normal, and successful PCI to the proximal mid LAD with SALO x 1. Cardiology recommended to d/c lasix and heparin drip at that time. Start eliquis and continue plavix uninterrupted for 6 months. Aspirin for 7 days and then discontinue to avoid triple anticoagulation. Continue amiodarone 200 mg BID for 5 more days then 200 mg daily thereafter. Zio patch placed on discharge. Patient also completed 3 day course of rocephin for possible UTI, culture revealed no growth. PT/OT recommended further care upon discharge. Patient arrived to our facility around 1230 on 09/30. Had complaints of headache and nausea at that time. She was given tylenol and ODT zofran. At approximately 1700, patient vomited 200mL of coffee ground emesis. Gastric occult obtained and positive. She was given 40 mg IVP protonix, started on NS@100mL/hr. CT abd/pelvis WO obtained and did not show any acute abdominal findings. She was transferred back to [facility] for GIB. While there she underwent EGD by Dr. Oviedo showing a large sliding hiatal hernia with esophagitis. There were several Tariq lesions in the hiatal hernia sac, one of which had actively oozing blood. This was clipped. Plan is to do protonix 40 mg BID x30 days, then daily AM. Carafate QID. Repeat EGD in 6 weeks to check healing. Avoid NSAIDs. Also due to recent cardiac stenting, continue ASA and plavix, but stop the Eliquis. Patient's hgb remained around 8.0 for past several days. She was transferred back here to [place] to our swingbed program for therapy today. Hospital Course Subjective: Patient was in the swingbed program and motivated with therapy. Continued to require oxygen at 2L, more with activity. She has continued to have dyspnea, worse with exertion. Today, 10/09 patient had right hand weakness/numbness. CT head suspicious for left sided CVA. Carotid US performed showing no significant stenosis, but mentions a mass. CT neck obtained showing thyroid nodule, but also mentions bilateral pneumonia. Patient is being transitioned to inpatient status for treatment of CVA and bilateral pneumonia. She was treated for hospital acquired pneumonia with cefepime and vancomycin. She was then transitioned to omnicef PO. MRSA was negative. Sputum, strep pneumo, and legionella were ordered and we are awaiting results at this time. Patient is now medically stable to return to swingbed program on swingbed program with 2-3L of oxygen. Appearance: Pleasant, No Apparent Distress and Alert HEENT: MMM and Supple CVS: No Murmur Abdomen: Soft and Non-Tender Respiratory: No Dyspnea Extremities: No Edema Vital Signs: Most Recent Vital Signs Temperature 97 F L 10/13/23 10:00 Temperature Source Temporal Artery Scan 10/13/23 10:00 Pulse Rate 78 10/13/23 10:00 Respiratory Rate 16 10/13/23 10:00 Blood Pressure 90/46 L 10/13/23 10:00 Blood Pressure Mean 60 10/13/23 10:00 Blood Pressure Right Arm 105/54 10/09/23 19:17 Blood Pressure Location Left Arm 10/13/23 10:00 Blood Pressure Position Supine 10/13/23 05:31 O2 Sat by Pulse Oximetry 99 10/13/23 10:00 Oxygen Delivery Method Nasal Cannula 10/13/23 10:00 Oxygen Flow Rate 3 10/13/23 10:00 Height 5 ft 6 in 10/09/23 20:01 Weight 208 lb 2 oz 10/13/23 05:31 Telemetry Type Remote Telemetry 10/13/23 07:00 Telemetry Monitoring Continues 10/13/23 07:00 Irregular Telemetry Rate (Approximate) 70-80 BPM 10/11/23 18:59 Telemetry Heart Rate 73 10/13/23 07:00 Telemetry SPO2 96 10/13/23 07:00 EKG GA Interval 0.20 10/13/23 07:00 EKG QRS Interval 0.06 10/13/23 07:00 Telemetry Strip Reading SR with 1 AVB. 10/13/23 07:00 Lab Results Last 24 Hours: 10/13/23 10/12/23 10/10/23 05:04 20:30 08:30 WBC 8.54 RBC 2.72 L Hgb 8.4 L Hct 26.3 L MCV 96.7 MCH 30.9 MCHC 31.9 RDW Coeff of Shaila 13.4 Plt Count 297 Immature Gran % (Auto) 0.2 Neut % (Auto) 71.7 Lymph % (Auto) 13.5 [place] % (Auto) 11.4 H Eos % (Auto) 3.0 Baso % (Auto) 0.2 Neut # (Auto) 6.1 Lymph # (Auto) 1.2 [place] # (Auto) 1.0 Eos # (Auto) 0.3 Baso # (Auto) 0.0 Immature Gran # (Auto) 0.0 Sodium 133.5 L Potassium 3.78 Chloride 102.4 Carbon Dioxide 25.9 Anion Gap 8.98 BUN 13.3 Creatinine 0.78 Estimated GFR (MDRD) 70.00 BUN/Creatinine Ratio 17.05 Glucose 100.7 Calcium 8.39 L Ferritin 55.40 Total Bilirubin 0.56 AST 34.8 ALT 17.3 Alkaline Phosphatase 86.1 Total Protein 6.23 L Albumin 3.37 L Globulin 2.86 Albumin/Globulin Ratio 1.17 Folate > 20.00 Vancomycin Trough 12.568 Discharge Instructions Discharge Planning: Discharge Planning > 40 minutes If patient is discharged with left ventricular systolic dysfunction: NA Discharged with a beta oriana? [] If no, why not? [] Discharged with an shady/arb? [] If no, why not? [] Discharge Medications: Medications at Discharge (Home Meds & RX) albuterol sulfate 90 mcg/actuation aerosol inhaler 2 inh inhalation Q6H PRN shortness of breath or wheezing 09/30/23 amiodarone 200 mg tablet 200 mg PO BID 09/30/23 aspirin 81 mg chewable tablet 81 mg PO DAILY 09/30/23 atorvastatin 80 mg tablet 80 mg PO BEDTIME 09/30/23 buspirone 30 mg tablet 30 mg PO BID 09/30/23 cetirizine 10 mg tablet 10 mg PO DAILY PRN allergy symptoms 09/30/23 cholecalciferol (vitamin D3) 50 mcg (2,000 unit) capsule 50 mcg PO DAILY 09/30/23 clopidogrel 75 mg tablet (Plavix) 75 mg PO DAILY 09/30/23 fluticasone propionate 50 mcg/actuation nasal spray,suspension (Allergy Relief (fluticasone)) 1 spray intranasal DAILY PRN allergy symptoms 09/30/23 glucosamine sulfate 500 mg tablet (Cidatrine (glucosamine)) 500 mg PO DAILY 09/30/23 ipratropium 0.5 mg-albuterol 3 mg (2.5 mg base)/3 mL nebulization soln 3 ml inhalation Q4H 09/30/23 metoprolol succinate 50 mg tablet,extended release 24 hr 50 mg PO DAILY 09/30/23 multivitamin 1 tab PO DAILY 09/30/23 pantoprazole 40 mg granules delayed-release for susp in packet 40 mg PO DAILY 09/30/23 polyethylene glycol 3350 17 gram oral powder packet 17 g PO DAILY PRN constip ation 09/30/23 sacubitril 24 mg-valsartan 26 mg tablet (Entresto) 1 tab PO BID 09/30/23 vitamin B complex 1 tab PO DAILY 09/30/23 calcium 500 mg tablet 500 mg PO DAILY 10/05/23 sucralfate 1 gram tablet (Carafate) 1 g PO .achs 10/05/23 Discharge Plan Discharge Discharge Orders: Discharge Patient (ONCE); Ordered 10/13/23 Ordered By: OC CHAVARRIA Patient Disposition: DISCH W/I HOSP TO SWING [facility] Prescriptions: No Action amiodarone 200 mg tablet 200 mg PO BID aspirin 81 mg tablet,chewable 81 mg PO DAILY atorvastatin 80 mg tablet 80 mg PO BEDTIME polyethylene glycol 3350 17 gram powder in packet 17 g PO DAILY PRN (Reason: constipation) albuterol sulfate 90 mcg/actuation HFA aerosol inhaler 2 inh inhalation Q6H PRN (Reason: shortness of breath or wheezing) buspirone 30 mg tablet 30 mg PO BID cetirizine 10 mg tablet 10 mg PO DAILY PRN (Reason: allergy symptoms) clopidogrel [Plavix] 75 mg tablet 75 mg PO DAILY fluticasone propionate [Allergy Relief (fluticasone)] 50 mcg/actuation spray,suspension 1 spray intranasal DAILY PRN (Reason: allergy symptoms) Rx Instructions: administer into each nostril ipratropium-albuterol 0.5 mg-3 mg(2.5 mg base)/3 mL solution for nebulization 3 ml inhalation Q4H metoprolol succinate 50 mg tablet extended release 24 hr 50 mg PO DAILY multivitamin Tablet 1 tab PO DAILY pantoprazole [address] for susp in packet 40 mg PO DAILY cholecalciferol (vitamin D3) 50 mcg (2,000 unit) capsule 50 mcg PO DAILY glucosamine sulfate [Cidatrine (glucosamine)] 500 mg tablet 500 mg PO DAILY Rx Instructions: administer with a meal vitamin B complex Tablet 1 tab PO DAILY Entresto 24-26 mg tablet 1 tab PO BID sucralfate [Carafate] 1 gram tablet 1 g PO .achs calcium 500 mg tablet 500 mg PO DAILY Did you review [place] [employer] ORDER SELECTOR for ALL controlled substances?: No Discussed opioids are addictive and Narcan is available by prescription or from pharmacy.: No
== END 2023-10-13 13:55 | disposition swing bed (61) | DRG 193 ==
LOC: MEDSURG B 18:44
PROVIDERS: ADMIT Hospitalist; ATTEND Nurse Practitioner Family

== ENCOUNTER 2023-10-28 20:53 | Inpatient (IN) ==
[2023-10-28 21:32] LABS: ABG O2 HGB 92.9 % (95-100); BEecf 6.1 (-2.0-3.0); COHb 2.7 (0.5-1.5); HCO3 27.8 (21-28); MetHb 1.7 (0-1.5); TCO2 28.7 (19-24); sO2 96.2 % (94-98); tHb 8.5 g/dl (11.7-17.4)
[2023-10-28 21:35] LABS: ABG PH 7.59 (7.35-7.45)
--- NOTE | 2023-10-28 22:01 | ED.PDOC ---
General ED Provider: Dr. KENN GALICIA MD Chief Complaint: Shortness of Air Stated Complaint: Patient's short of breath. Time Seen by Provider: 10/28/23 20:53 Mode of Arrival: Stretcher Information Source: Patient and EMT Primary Care Provider: JAIRON ROJAS Nursing and Triage Documentation Reviewed and Agree: Yes Does Patient Take Opioids?: No Is Patient Opioid Naive?: Yes What is Opioid Naive?: *Opioid Naive implies the patient is not already taking opioids or not chronically receiving opioids on a daily basis. *PRN dosing is not "usually" associated with tolerance. *Patients are at higher risk of over-sedation and aspiration. Is Patient Opioid Tolerant?: No What is Opioid Tolerant?: *Opioid Tolerance implies less than the expected response to an opioid. *Acquired tolerance is defined by the patient taking 60mg of oral morphine daily (or equianalgesic dose of another opioid) for 1 week or more. *Often associated with chronic pain. *May take more than usual dose to achieve desired pain control. Respiratory Complaint Exam Shortness of Air Complaint/Exam Onset/Duration: Today Symptoms Are: Still present Timing: Constant Initial Severity: Moderate Current Severity: Moderate Character: Reports Dyspnea at rest and Dyspnea on exertion Aggravating: Reports Movement and Recumbent position Alleviating: Reports Oxygen (Patient is on 4 L of oxygen at home.) Associated Signs and Symptoms: Reports Cough, Wheezing, Calf swelling, Edema, Rapid breathing and Labored breathing Related History: Reports Obesity History of Healthcare-Acquired Pneumonia: Admit w/in last 30 days (Patient was in the hospital within the last 30 days for an acute PA. She ended up having heart failure and received 1 stent.) Cardiac Risk Factors: Reports Prior PA and CAD Home Oxygen Use: Yes (4 L) Recent Stress Test: No Respiratory Distress: Moderate Stridor Present: No Diminished Breath Sounds: Yes Unable to Speak Full Sentences: No Fatigue: Yes Leg Swelling: Yes Salvatore's Sign Present: No Grunting Respirations: No Differential Diagnoses: CHF, Pulmonary Edema, Chest Wall Pain, PA, Pneumonia and SARS Quality Indicators for AMI: EKG in 10min. Quality Indicator For Non-Traumatic Chest Pain/Syncope: EKG Performed Review of Systems Review Of Systems Constitutional: Reports Weakness Eyes: Reports No symptoms Ears, Nose, Mouth, Throat: Reports No symptoms Respiratory: Reports Shortness of Breath and Wheezing Cardiac: Reports No symptoms GI: Reports No symptoms : Reports No symptoms Musculoskeletal: Reports No symptoms Skin: Reports No symptoms Neurological: Reports No symptoms Endocrine: Reports No symptoms Hematologic/Lymphatic: Reports No symptoms All Other Systems: Reviewed and Negative [facility] Medical History TIA (transient ischemic attack) G45.9 - Transient cerebral ischemic attack, unspecified (ICD-10) FHx: cholecystectomy Z83.79 - Family history of other diseases of the digestive system (ICD-10) Cataract H26.9 - Unspecified cataract (ICD-10) Thyroid disease E07.9 - Disorder of thyroid, unspecified (ICD-10) Stroke I63.9 - Cerebral infarction, unspecified (ICD-10) Osteoarthritis M19.90 - Unspecified osteoarthritis, unspecified site (ICD-10) Obesity E66.9 - Obesity, unspecified (ICD-10) CHF (congestive heart failure) I50.9 - Heart failure, unspecified (ICD-10) Melanoma C43.9 - Malignant melanoma of skin, unspecified (ICD-10) Hyperlipidemia E78.5 - Hyperlipidemia, unspecified (ICD-10) ABDIRASHID (generalized anxiety disorder) F41.1 - Generalized anxiety disorder (ICD-10) Depressed F32.A - Depression, unspecified (ICD-10) Allergic rhinitis J30.9 - Allergic rhinitis, unspecified (ICD-10) Cervical radiculopathy M54.12 - Radiculopathy, cervical region (ICD-10) COPD (chronic obstructive pulmonary disease) J44.9 - Chronic obstructive pulmonary disease, unspecified (ICD-10) Afib I48.91 - Unspecified atrial fibrillation (ICD-10) Hypertension I10 - Essential (primary) hypertension (ICD-10) GERD (gastroesophageal reflux disease) K21.9 - Gastro-esophageal reflux disease without esophagitis (ICD-10) MARCELO (obstructive sleep apnea) G47.33 - Obstructive sleep apnea (adult) (pediatric) (ICD-10) Family History FATHER Heart disease Mother Heart disease Social History Smoking and tobacco status: Never smoker Alcohol intake: never Surgical History Status post cardiac catheterization Z98.890 - Other specified postprocedural states (ICD-10) 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) H/O total hysterectomy Z90.710 - Acquired absence of both cervix and uterus (ICD-10) Physical Exam Physical Exam Appearance: Reports Ill-appearing, Obese and Other (deconditioned ) Ill-appearing: Moderate (Shortness of breath) Pain Distress: Mild Eyes: Reports STORMY and EOMI Neck: Supple Respiratory: Reports Airway patent Cardiovascular: Reports RRR (Irregularly irregular.) and Pulses normal GI/: Reports Soft Musculoskeletal: Reports No calf tenderness and Edema Skin: Reports Warm and Dry Neurological: Reports Sensation intact Psychiatric: Reports Affect appropriate and Mood appropriate Interpretation EKG Interpretation Time of EKG #1: 21:02 Rate: Normal Rhythm: Other (Ventricular rate, accelerated junctional rhythm with P VCs and occasional PACs.) Ectopy: PVCs and PACs Interpretation: Probable anterior infarct age indeterminant EKG Interpretation By: ED Physician Radiology Interpretation Radiology Interpretation By: Radiologist Radiology Results: Positive (Possible right upper lobe pneumonia possible mild pulmonary edema.) Exam Interpreted: CXR Radiology Interpretation By: Radiologist Radiology Results: Positive (Likely pneumonia.) Re-Evaluation Re-Evaluation Appearance: NAD Lungs: Other (Prolonged expiratory phase with wheezing.) Skin: Warm and Dry Neuro: Alert and Oriented X3 CV: RRR Course Course 10/28/23 22:04 10/28/23 22:04 Orders, Labs, Meds: Lab Review 10/28/23 10/28/23 10/28/23 21:10 21:27 22:04 WBC Cancelled RBC Hgb Hct MCV MCH MCHC RDW Coeff of Shaila Plt Count Immature Gran % (Auto) Neut % (Auto) Lymph % (Auto) [place] % (Auto) Eos % (Auto) Baso % (Auto) Neut # (Auto) Lymph # (Auto) [place] # (Auto) Eos # (Auto) Baso # (Auto) Immature Gran # (Auto) Puncture Site Lb Base Excess 6.1 H O2 Saturation 96.2 ABG pH 7.59 H* ABG pCO2 29.0 L ABG pO2 69.0 L ABG HCO3 27.8 ABG Total CO2 28.7 H Mauro Test + Hemoglobin 1.7 H Oxyhemoglobin 92.9 L Carboxyhemoglobin 2.7 H Total Hemoglobin 8.5 L O2 Delivery Device Cannula Oxygen Liter Flow 4.00 FiO2 % 36.0 Sodium Potassium Chloride Carbon Dioxide Anion Gap BUN Creatinine Estimated GFR (MDRD) BUN/Creatinine Ratio Glucose Calcium Total Bilirubin AST ALT Alkaline Phosphatase Troponin I NT-Pro-B Natriuret Pep Total Protein Albumin Globulin Albumin/Globulin Ratio SARS CoV-2 RNA Rapid JESUS Negative 10/28/23 10/28/23 10/28/23 22:04 22:04 22:04 WBC 11.88 H RBC Cancelled 2.77 L Hgb Cancelled 8.4 L Hct Cancelled MCV MCH MCHC RDW Coeff of Shaila Plt Count Immature Gran % (Auto) Neut % (Auto) Lymph % (Auto) [place] % (Auto) Eos % (Auto) Baso % (Auto) Neut # (Auto) Lymph # (Auto) [place] # (Auto) Eos # (Auto) Baso # (Auto) Immature Gran # (Auto) Puncture Site Base Excess O2 Saturation ABG pH ABG pCO2 ABG pO2 ABG HCO3 ABG Total CO2 Mauro Test Hemoglobin Oxyhemoglobin Carboxyhemoglobin Total Hemoglobin O2 Delivery Device Oxygen Liter Flow FiO2 % Sodium Potassium Chloride Carbon Dioxide Anion Gap BUN Creatinine Estimated GFR (MDRD) BUN/Creatinine Ratio Glucose Calcium Total Bilirubin AST ALT Alkaline Phosphatase Troponin I NT-Pro-B Natriuret Pep Total Protein Albumin Globulin Albumin/Globulin Ratio SARS CoV-2 RNA Rapid JESUS 10/28/23 10/28/23 10/28/23 22:04 22:04 22:04 WBC RBC Hgb Hct 27.1 L MCV Cancelled 97.8 MCH Cancelled 30.3 MCHC Cancelled RDW Coeff of Shaila Plt Count Immature Gran % (Auto) Neut % (Auto) Lymph % (Auto) [place] % (Auto) Eos % (Auto) Baso % (Auto) Neut # (Auto) Lymph # (Auto) [place] # (Auto) Eos # (Auto) Baso # (Auto) Immature Gran # (Auto) Puncture Site Base Excess O2 Saturation ABG pH ABG pCO2 ABG pO2 ABG HCO3 ABG Total CO2 Mauro Test Hemoglobin Oxyhemoglobin Carboxyhemoglobin Total Hemoglobin O2 Delivery Device Oxygen Liter Flow FiO2 % Sodium Potassium Chloride Carbon Dioxide Anion Gap BUN Creatinine Estimated GFR (MDRD) BUN/Creatinine Ratio Glucose Calcium Total Bilirubin AST ALT Alkaline Phosphatase Troponin I NT-Pro-B Natriuret Pep Total Protein Albumin Globulin Albumin/Globulin Ratio SARS CoV-2 RNA Rapid JESUS 10/28/23 10/28/23 10/28/23 22:04 22:04 22:04 WBC RBC Hgb Hct MCV MCH MCHC 31.0 L RDW Coeff of Shaila Cancelled 13.6 Plt Count Cancelled 458 H Immature Gran % (Auto) Cancelled Neut % (Auto) Lymph % (Auto) [place] % (Auto) Eos % (Auto) Baso % (Auto) Neut # (Auto) Lymph # (Auto) [place] # (Auto) Eos # (Auto) Baso # (Auto) Immature Gran # (Auto) Puncture Site Base Excess O2 Saturation ABG pH ABG pCO2 ABG pO2 ABG HCO3 ABG Total CO2 Mauro Test Hemoglobin Oxyhemoglobin Carboxyhemoglobin Total Hemoglobin O2 Delivery Device Oxygen Liter Flow FiO2 % Sodium Potassium Chloride Carbon Dioxide Anion Gap BUN Creatinine Estimated GFR (MDRD) BUN/Creatinine Ratio Glucose Calcium Total Bilirubin AST ALT Alkaline Phosphatase Troponin I NT-Pro-B Natriuret Pep Total Protein Albumin Globulin Albumin/Globulin Ratio SARS CoV-2 RNA Rapid JESUS 10/28/23 10/28/23 10/28/23 22:04 22:04 22:04 WBC RBC Hgb Hct MCV MCH MCHC RDW Coeff of Shaila Plt Count Immature Gran % (Auto) 0.4 Neut % (Auto) Cancelled 81.7 H Lymph % (Auto) Cancelled 9.8 L [place] % (Auto) Cancelled Eos % (Auto) Baso % (Auto) Neut # (Auto) Lymph # (Auto) [place] # (Auto) Eos # (Auto) Baso # (Auto) Immature Gran # (Auto) Puncture Site Base Excess O2 Saturation ABG pH ABG pCO2 ABG pO2 ABG HCO3 ABG Total CO2 Mauro Test Hemoglobin Oxyhemoglobin Carboxyhemoglobin Total Hemoglobin O2 Delivery Device Oxygen Liter Flow FiO2 % Sodium Potassium Chloride Carbon Dioxide Anion Gap BUN Creatinine Estimated GFR (MDRD) BUN/Creatinine Ratio Glucose Calcium Total Bilirubin AST ALT Alkaline Phosphatase Troponin I NT-Pro-B Natriuret Pep Total Protein Albumin Globulin Albumin/Globulin Ratio SARS CoV-2 RNA Rapid JESUS 10/28/23 10/28/23 10/28/23 22:04 22:04 22:04 WBC RBC Hgb Hct MCV MCH MCHC RDW Coeff of Shaila Plt Count Immature Gran % (Auto) Neut % (Auto) Lymph % (Auto) [place] % (Auto) 6.5 Eos % (Auto) Cancelled 1.3 Baso % (Auto) Cancelled 0.3 Neut # (Auto) Cancelled Lymph # (Auto) [place] # (Auto) Eos # (Auto) Baso # (Auto) Immature Gran # (Auto) Puncture Site Base Excess O2 Saturation ABG pH ABG pCO2 ABG pO2 ABG HCO3 ABG Total CO2 Mauro Test Hemoglobin Oxyhemoglobin Carboxyhemoglobin Total Hemoglobin O2 Delivery Device Oxygen Liter Flow FiO2 % Sodium Potassium Chloride Carbon Dioxide Anion Gap BUN Creatinine Estimated GFR (MDRD) BUN/Creatinine Ratio Glucose Calcium Total Bilirubin AST ALT Alkaline Phosphatase Troponin I NT-Pro-B Natriuret Pep Total Protein Albumin Globulin Albumin/Globulin Ratio SARS CoV-2 RNA Rapid JESUS 10/28/23 10/28/23 10/28/23 22:04 22:04 22:04 WBC RBC Hgb Hct MCV MCH MCHC RDW Coeff of Shaila Plt Count Immature Gran % (Auto) Neut % (Auto) Lymph % (Auto) [place] % (Auto) Eos % (Auto) Baso % (Auto) Neut # (Auto) 9.7 H Lymph # (Auto) Cancelled 1.2 [place] # (Auto) Cancelled 0.8 Eos # (Auto) Cancelled Baso # (Auto) Immature Gran # (Auto) Puncture Site Base Excess O2 Saturation ABG pH ABG pCO2 ABG pO2 ABG HCO3 ABG Total CO2 Mauro Test Hemoglobin Oxyhemoglobin Carboxyhemoglobin Total Hemoglobin O2 Delivery Device Oxygen Liter Flow FiO2 % Sodium Potassium Chloride Carbon Dioxide Anion Gap BUN Creatinine Estimated GFR (MDRD) BUN/Creatinine Ratio Glucose Calcium Total Bilirubin AST ALT Alkaline Phosphatase Troponin I NT-Pro-B Natriuret Pep Total Protein Albumin Globulin Albumin/Globulin Ratio SARS CoV-2 RNA Rapid JESUS 10/28/23 10/28/23 10/28/23 22:04 22:04 22:04 WBC RBC Hgb Hct MCV MCH MCHC RDW Coeff of Shaila Plt Count Immature Gran % (Auto) Neut % (Auto) Lymph % (Auto) [place] % (Auto) Eos % (Auto) Baso % (Auto) Neut # (Auto) Lymph # (Auto) [place] # (Auto) Eos # (Auto) 0.2 Baso # (Auto) Cancelled 0.0 Immature Gran # (Auto) Cancelled 0.1 Puncture Site Base Excess O2 Saturation ABG pH ABG pCO2 ABG pO2 ABG HCO3 ABG Total CO2 Mauro Test Hemoglobin Oxyhemoglobin Carboxyhemoglobin Total Hemoglobin O2 Delivery Device Oxygen Liter Flow FiO2 % Sodium 139.3 Potassium 3.75 Chloride 103.3 Carbon Dioxide 28.8 Anion Gap 10.95 BUN 15.5 Creatinine 0.67 Estimated GFR (MDRD) 83.00 BUN/Creatinine Ratio 23.13 Glucose 120.6 H Calcium 8.82 Total Bilirubin 0.62 AST 35.0 ALT 22.4 Alkaline Phosphatase 112.7 Troponin I 0.025 NT-Pro-B Natriuret Pep 630 H Total Protein 7.15 Albumin 3.76 Globulin 3.39 Albumin/Globulin Ratio 1.10 SARS CoV-2 RNA Rapid JESUS Orders Category Date Time Status ABG DRAW REQUEST Stat CARDIO 10/28/23 21:02 Completed EKG-(ED ONLY) Stat CARDIO 10/28/23 21:02 Completed ABG COOX Stat LAB 10/28/23 21:27 Completed BLOOD CULTURE Stat LAB 10/28/23 22:49 Ordered CBC W/ AUTO DIFF Routine LAB 10/28/23 22:04 Completed CMP [COMPREHENSIVE METABOLIC PANEL] Stat LAB 10/28/23 22:04 Completed COVID [SARS COV-2 RNA RAPID JESUS] Stat LAB 10/28/23 21:10 Completed D-DIMER Stat LAB 10/28/23 22:04 Received NT-PROBNP(ED) Stat LAB 10/28/23 22:04 Completed TROPONIN I Stat LAB 10/28/23 22:04 Completed TYPE AND SCREEN Stat LAB 10/28/23 22:19 Ordered URINALYSIS C & S IF INDICATED Stat LAB 10/28/23 21:02 Uncollected Acetaminophen [Tylenol] Meds 10/28/23 22:22 Discontinued 650 mg PO ONCE ONE Ceftriaxone/D5w 1 gm Premix [Rocephin 1 gm/50 ml D5w] Meds 10/28/23 23:00 Ordered 1 gm in 50 ml IV DAILY Furosemide [Lasix] Meds 10/28/23 22:44 Discontinued 40 mg IVP ONCE ONE Ipratropium/Albuterol Neb [Duoneb] Meds 10/28/23 22:07 Discontinued 3 ml NEB .STK-MED ONE CXR [CHEST, 1V AP ONLY] Stat RADS 10/28/23 21:02 Completed Medications Generic Name Dose Route Start Last Admin Trade Name Freq PRN Reason Stop Dose Admin CEFTRIAXONE/D5W 1 GM PREMIX 1 gm in 50 mls @ 100 mls/hr 10/28/23 23:00 Rocephin 1 Gm/50 Ml D5w IV 10/31/23 22:59 DAILY HOLLY Discontinued Medications Generic Name Dose Route Start Last Admin Trade Name Harshq PRN Reason Stop Dose Admin Acetaminophen 650 mg 10/28/23 22:22 10/28/23 22:27 Acetaminophen 325 Mg Tablet PO 10/28/23 22:23 650 mg ONCE ONE Administration Furosemide 40 mg 10/28/23 22:44 10/28/23 22:49 Furosemide Inj 40 Mg/4 Ml Vial IVP 10/28/23 22:45 40 mg ONCE ONE Administration Vital Signs: Temp Pulse Resp BP Pulse Ox 10/28/23 20:54 97.1 F L 75 23 H 148/64 H 90 L Discharge Plan Discharge Prescriptions: No Action amiodarone 200 mg tablet 200 mg PO BID aspirin 81 mg tablet,chewable 81 mg PO DAILY atorvastatin 80 mg tablet 80 mg PO BEDTIME polyethylene glycol 3350 17 gram powder in packet 17 g PO DAILY PRN (Reason: constipation) albuterol sulfate 90 mcg/actuation HFA aerosol inhaler 2 inh inhalation Q6H PRN (Reason: shortness of breath or wheezing) buspirone 30 mg tablet 30 mg PO BID cetirizine 10 mg tablet 10 mg PO DAILY PRN (Reason: allergy symptoms) clopidogrel [Plavix] 75 mg tablet 75 mg PO DAILY metoprolol succinate 50 mg tablet extended release 24 hr 50 mg PO DAILY multivitamin Tablet 1 tab PO DAILY cholecalciferol (vitamin D3) 50 mcg (2,000 unit) capsule 50 mcg PO DAILY vitamin B complex Tablet 1 tab PO DAILY sucralfate [Carafate] 1 gram tablet 1 g PO .achs calcium 500 mg tablet 500 mg PO DAILY acetaminophen 325 mg capsule 650 mg PO Q4-6H PRN (Reason: fever or pain) vancomycin [Vancocin] 125 mg Capsule 125 mg PO Q6HR Qty: 24 0RF lorazepam 0.5 mg Tablet 0.25 mg PO BEDTIME PRN (Reason: insomnia) Qty: 15 0RF valsartan 40 mg tablet 40 mg PO DAILY Qty: 30 0RF Rx Instructions: IN PLACE OF ENTRESTO pantoprazole [Protonix] 40 mg tablet,delayed release (DR/EC) See Rx Instructions .ROUTE .COMPLEX Qty: 40 0RF Rx Instructions: TAKE 40 MG BID X 10 DAYS, THEN 40 MG ONCE DAILY ipratropium-albuterol 0.5 mg-3 mg(2.5 mg base)/3 mL solution for nebulization 3 ml inhalation Q4H PRN (Reason: Shortness Of Breath Or Wheezing) Qty: 30 0RF cilostazol 50 mg tablet 50 mg PO BID Qty: 60 0RF Saccharomyces boulardii [Daily Probiotic (S. boulardii)] 250 mg capsule 250 mg PO BID Qty: 60 0RF ED Provider: KENN GALICIA Physician Progress Note: []
[2023-10-28 22:05] LABS: SARS COV-2 RNA RAPID NAAT NEGATIVE (NEGATIVE)
--- NOTE | 2023-10-28 22:06 | DI ---
EXAM: CHEST RADIOGRAPH TECHNIQUE: Single frontal chest radiograph. HISTORY: dyspnea. COMPARISON: 09/25/2023. FINDINGS: Patchy airspace changes seen in the right upper lobe which are not appreciated previously. No other focal consolidation. Mild prominence of the interstitium seen bilaterally which are similar to the p rior examination and may represent chronic interstitial changes and less likely mild edema.. No appr eciable wall effusion or pneumothorax. Cardiomediastinal silhouette and pulmonary vessels within normal limits for the technique and rotatio n. Upper abdomen is unremarkable. No acute bony abnormality. IMPRESSION: 1. Airspace changes seen in the right upper lobe . This may represent early pneumonia. Suggest fol low-up exam to assess for clearing or other etiologies. 2. Mild prominence of the interstitium seen bilaterally which are similar to the prior examination a nd may represent chronic interstitial changes and less likely mild edema.
[2023-10-28] MEDS ORDERED: DUONEB NEB ONE (22:07)
[2023-10-28] MEDS ORDERED: TYLENOL PO ONE (22:22)
[2023-10-28 22:23] LABS: ALANINE AMINOTRANSFERASE 22.4 U/L (0-35); ALBUMIN 3.76 g/dL (3.5-5.0); ALKALINE PHOSPHATASE 112.7 U/L (53-141); BILIRUBIN,TOTAL 0.62 mg/dL (0.2-1.3); BLOOD UREA NITROGEN 15.5 mg/dL (7-17); CALCIUM 8.82 mg/dL (8.4-10.2); CARBON DIOXIDE 28.8 mmol/L (22-30.0); CHLORIDE 103.3 mmol/L (98-107); CREATININE 0.67 mg/dL (0.60-1.30); GLUCOSE 120.6 mg/dL (74-106); POTASSIUM 3.75 mmol/L (3.5-5.1); SODIUM 139.3 mmol/L (134.5-145); TOTAL PROTEIN 7.15 g/dL (6.3-8.2)
[2023-10-28 22:28] LABS: BASOPHILS % (AUTO) 0.3 % (0.0-3.0); EOSINOPHILS # (AUTO) 0.2 K/ul (0.0-0.7); EOSINOPHILS % (AUTO) 1.3 % (0.0-7.0); HEMATOCRIT 27.1 % (37.0-47.0); HEMOGLOBIN 8.4 g/dl (12.0-16.0); IMMATURE GRANULOCYTE # (AUTO) 0.1 (0.0-1.0); IMMATURE GRANULOCYTE % (AUTO) 0.4 % (0.0-5.0); LYMPHOCYTES # (AUTO) 1.2 K/uL (0.60-3.4); LYMPHOCYTES % (AUTO) 9.8 (10.0-50.0); MEAN CORPUSCULAR HEMOGLOBIN 30.3 pg (27.0-31.0); MEAN CORPUSCULAR VOLUME 97.8 fl (81.0-99.0); MONOCYTES # (AUTO) 0.8 K/uL (0.4-2.0); MONOCYTES % (AUTO) 6.5 (0-10); NEUTROPHILS # (AUTO) 9.7 K/ul (2.0-6.9); NEUTROPHILS % (AUTO) 81.7 % (42.2-75.2); PLATELET COUNT 458 10^3/uL (140-440); RDW COEFFICIENT OF VARIATION 13.6 % (11.6-14.8); RED BLOOD COUNT 2.77 10^6/ul (4.20-5.40); WHITE BLOOD COUNT 11.88 K/ul (4.6-10.2)
[2023-10-28 22:35] LABS: TROPONIN I 0.025 ng/ml (0.0000-0.120)
[2023-10-28] MEDS ORDERED: LASIX IVP ONE (22:44)
[2023-10-28] MEDS ORDERED: TYLENOL PO PRN (23:00)
[2023-10-28] MEDS ORDERED: ALBUTEROL 0.083% NEB NEB PRN (23:00)
[2023-10-28] MEDS ORDERED: ROCEPHIN 1 GM/50 ML D5W 1 GM/50 ML BAG IV SCH (23:00)
[2023-10-28] MEDS ORDERED: MIRALAX PO PRN (23:04)
[2023-10-28] MEDS ORDERED: ZITHROMAX 500 MG in SODIUM CHLORIDE 250 ML IV SCH (23:30)
[2023-10-28] MEDS: SOLU-MEDROL 40 MG IVP SCH (23:40)
[2023-10-29] MEDS: DUONEB NEB SCH ×4 (00:18→17:19)
[2023-10-29 01:04] LABS: BILIRUBIN,URINE Negative (NEGATIVE); CLARITY,URINE Slightly (CLEAR); COLOR,URINE Yellow (YELLOW); GLUCOSE, URINE (UA) Negative (NEGATIVE); KETONES,URINE Negative (NEGATIVE); LEUKOCYTE ESTERASE ,URINE 1+ (NEGATIVE); NITRITE,URINE Positive (NEGATIVE); PROTEIN,URINE Negative (NEGATIVE); URINE, BLOOD Trace-intact (NEGATIVE); UROBILINOGEN,URINE 0.2 (0.2)
[2023-10-29] MEDS: CARAFATE PO SCH ×5 (01:08→21:15)
[2023-10-29] MEDS: ATIVAN PO PRN ×2 (01:08→21:07)
[2023-10-29 01:14] LABS: URINE RBC, MICROSCOPIC 0-2 (0-2)
[2023-10-29 01:15] LABS: BACTERIA,URINE TRACE (NOT PRESENT); YEAST,URINE 3+ (NOT PRESENT)
--- NOTE | 2023-10-29 01:23 | CT ---
EXAM: CTA OF THE CHEST. History: Short of breath Comparison: Chest radiograph 10/28/2023 Technique: Multiplanar CT images through the thorax were obtained following administration of IV con trast. MIP images and 3-D reconstructions were also provided. FINDINGS: Heart is enlarged. No pericardial effusion. No thoracic aortic aneurysm. Right lower lo be segmental pulmonary embolism. Right upper lobe pulmonary arterial filling defects. Severe bilate ral lung infiltrates. Bronchial wall thickening and small to moderate right pleural effusion. No pn eumothorax. No axillary lymphadenopathy. No mediastinal lymphadenopathy. Mildly enlarged bilateral hilar lymph nodes are probably reactive. Small to moderate hiatal hernia. Mild right hydronephrosis. No acute osseous abnormalities. Impression: 1. Acute right-sided pulmonary emboli. 2. Cardiomegaly with pulmonary edema. 3. Bilateral pneumonia. 4. Right pleural effusion. 5. Hiatal hernia. 6. Mild right hydronephrosis. Critical results communicated to [facility] at 1:18 a.m. 10/29/[address] scans are performed using dose optimization techniques as appropriate to the performed exam an d include at least one of the following: Automated exposure control, adjustment of the mA and/or kV according t o size, and the use of iterative reconstruction technique.
[2023-10-29 02:20] VITALS: BMI 32.3
[2023-10-29 05:25] LABS: BASOPHILS % (AUTO) 0.2 % (0.0-3.0); HEMATOCRIT 24.5 % (37.0-47.0); HEMOGLOBIN 7.6 g/dl (12.0-16.0); IMMATURE GRANULOCYTE # (AUTO) 0.1 (0.0-1.0); IMMATURE GRANULOCYTE % (AUTO) 0.4 % (0.0-5.0); LYMPHOCYTES # (AUTO) 0.4 K/uL (0.60-3.4); LYMPHOCYTES % (AUTO) 3.4 (10.0-50.0); MEAN CORPUSCULAR HEMOGLOBIN 30.2 pg (27.0-31.0); MEAN CORPUSCULAR VOLUME 97.2 fl (81.0-99.0); MONOCYTES # (AUTO) 0.2 K/uL (0.4-2.0); MONOCYTES % (AUTO) 1.6 (0-10); NEUTROPHILS # (AUTO) 11.5 K/ul (2.0-6.9); NEUTROPHILS % (AUTO) 94.4 % (42.2-75.2); PLATELET COUNT 399 10^3/uL (140-440); RDW COEFFICIENT OF VARIATION 13.7 % (11.6-14.8); RED BLOOD COUNT 2.52 10^6/ul (4.20-5.40); WHITE BLOOD COUNT 12.23 K/ul (4.6-10.2)
[2023-10-29 05:37] LABS: ALANINE AMINOTRANSFERASE 21.9 U/L (0-35); ALBUMIN 3.58 g/dL (3.5-5.0); ALKALINE PHOSPHATASE 108.4 U/L (53-141); ASPARTATE AMINO TRANSFERASE 33.1 U/L (14-36); BILIRUBIN,TOTAL 0.37 mg/dL (0.2-1.3); BLOOD UREA NITROGEN 13.9 mg/dL (7-17); CALCIUM 8.27 mg/dL (8.4-10.2); CARBON DIOXIDE 29.4 mmol/L (22-30.0); CHLORIDE 100.6 mmol/L (98-107); CREATININE 0.64 mg/dL (0.60-1.30); GLUCOSE 146.5 mg/dL (74-106); POTASSIUM 3.75 mmol/L (3.5-5.1); SODIUM 137.6 mmol/L (134.5-145); TOTAL PROTEIN 6.78 g/dL (6.3-8.2)
[2023-10-29] MEDS: LASIX IVP SCH ×3 (06:13→22:23)
[2023-10-29] MEDS: SOLU-MEDROL 40 MG IVP SCH ×3 (06:13→21:11)
[2023-10-29] MEDS ORDERED: LOVENOX SUBCUT ONE (06:33)
[2023-10-29 07:24] LABS: ABG O2 HGB 97.1 % (95-100); ABG PH 7.48 (7.35-7.45); COHb 1.5 (0.5-1.5); HCO3 33.5 (21-28); MetHb 0.8 (0-1.5); TCO2 34.9 (19-24); sO2 99.8 % (94-98); tHb 8.4 g/dl (11.7-17.4)
[2023-10-29] MEDS: VITAMIN D PO SCH (09:00)
[2023-10-29] MEDS ORDERED: PLETAL PO SCH (09:00)
[2023-10-29] MEDS: BALANCED B-100 PO SCH (09:00)
[2023-10-29] MEDS: BUSPAR PO SCH ×2 (09:00→21:14)
[2023-10-29] MEDS: ASPIRIN CHEWABLE PO SCH (09:00)
[2023-10-29] MEDS: DIOVAN PO SCH (09:00)
[2023-10-29] MEDS ORDERED: PLAVIX PO SCH (09:00)
[2023-10-29] MEDS: CALCIUM 500 + VIT D 5 MCG (200 IU) TABLET PO SCH (09:01)
[2023-10-29] MEDS: MULTIVITAMIN TABLET PO SCH (09:01)
[2023-10-29] MEDS: CORDARONE PO SCH ×2 (09:01→21:15)
[2023-10-29] MEDS: TOPROL XL PO SCH (09:01)
[2023-10-29] MEDS: FLORASTOR PO SCH ×2 (09:01→21:15)
[2023-10-29] MEDS: PROTONIX PO SCH ×2 (09:27→16:47)
[2023-10-29] MEDS: VANCOMYCIN PO SCH ×3 (10:46→17:01)
--- NOTE | 2023-10-29 11:52 | PCM ---
Date of Service Date Seen by Provider: 10/29/23 Time Seen by Provider: 09:00 Admit Day/Time Admission Date: 10/28/23 Admission Time: 22:30 Reason for Admission Chief Complaint: ACUTE HYPOXIC RESP FAILURE, COMUMUNITY [facility] Hospital Provider Hospital Provider: LINCOLN TOWNSEND, [facility] [place] Primary Care Physician Primary Care Physician: JAIRON ROJAS History of Present Illness History of Present Illness: 87 yo female presented to the ER via ambulance from home with complaints of shortness of breath. Patient states she went to Cardiology appointment yesterday and felt short of breath then. She was told she had some crackles on the left side at that time and they sent in a prescription for lasix in which she was to start this morning. Upon arrival to the ER, O2 sat was maintaining upper 80s-90% on 4L. Throughout the night she became more short of breath, and required placement on NRB. This was able to be weaned off this am. Chest x-ray in ER showed R upper lobe pneumonia and interstitial edema. D-dimer was found to be high and CTA of chest was ordered. Patient was found to have right lower lobe segmental pulmonary embolism in addition to pulmonary edema and bilateral pneumonia. She was given rocephin and 40 mg IVP lasix in the ER and admitted to the floor. At this time patient states she is feeling some better after treatment overnight, but is very concerned with prognosis. Denies any fever at home that she is aware of. Initially thought she was only having a panic attack when she came to the ER due to her history of anxiety. Currently on 4L via NC. Requesting chcf placement upon discharge. Case Discussed With Case Discussed With: Patient's case was discussed with the ER Physicians, Dr. Valle. [facility] Medical History TIA (transient ischemic attack) G45.9 - Transient cerebral ischemic attack, unspecified (ICD-10) FHx: cholecystectomy Z83.79 - Family history of other diseases of the digestive system (ICD-10) Cataract H26.9 - Unspecified cataract (ICD-10) Thyroid disease E07.9 - Disorder of thyroid, unspecified (ICD-10) Stroke I63.9 - Cerebral infarction, unspecified (ICD-10) Osteoarthritis M19.90 - Unspecified osteoarthritis, unspecified site (ICD-10) Obesity E66.9 - Obesity, unspecified (ICD-10) CHF (congestive heart failure) I50.9 - Heart failure, unspecified (ICD-10) Melanoma C43.9 - Malignant melanoma of skin, unspecified (ICD-10) Hyperlipidemia E78.5 - Hyperlipidemia, unspecified (ICD-10) ABDIRASHID (generalized anxiety disorder) F41.1 - Generalized anxiety disorder (ICD-10) Depressed F32.A - Depression, unspecified (ICD-10) Allergic rhinitis J30.9 - Allergic rhinitis, unspecified (ICD-10) Cervical radiculopathy M54.12 - Radiculopathy, cervical region (ICD-10) COPD (chronic obstructive pulmonary disease) J44.9 - Chronic obstructive pulmonary disease, unspecified (ICD-10) Afib I48.91 - Unspecified atrial fibrillation (ICD-10) Hypertension I10 - Essential (primary) hypertension (ICD-10) GERD (gastroesophageal reflux disease) K21.9 - Gastro-esophageal reflux disease without esophagitis (ICD-10) MARCELO (obstructive sleep apnea) G47.33 - Obstructive sleep apnea (adult) (pediatric) (ICD-10) Surgical History Status post cardiac catheterization Z98.890 - Other specified postprocedural states (ICD-10) 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) H/O total hysterectomy Z90.710 - Acquired absence of both cervix and uterus (ICD-10) Family History FATHER Heart disease Mother Heart disease Social History Smoking and tobacco status: Never smoker Alcohol intake: never Allergies Allergies Allergy/AdvReac Type Severity Reaction Status Date / Time escitalopram [From Lexapro] AdvReac Verified 10/28/23 21:03 SERTRALINE AdvReac Uncoded 10/28/23 21:03 Current Medications Home Medications albuterol sulfate 90 mcg/actuation aerosol inhaler 2 inh inhalation Q6H PRN shortness of breath or wheezing 09/30/23 [History Confirmed 10/28/23 Last Taken Unknown] amiodarone 200 mg tablet 200 mg PO BID 09/30/23 [History Confirmed 10/28/23 Last Taken 10/09/23 08:00] aspirin 81 mg chewable tablet 81 mg PO DAILY 09/30/23 [History Confirmed 10/28/23 Last Taken 10/09/23 08:00] atorvastatin 80 mg tablet 80 mg PO BEDTIME 09/30/23 [History Confirmed 10/28/23 Last Taken 10/09/23 08:00] buspirone 30 mg tablet 30 mg PO BID 09/30/23 [History Confirmed 10/28/23 Last Taken 10/09/23 08:00] cetirizine 10 mg tablet 10 mg PO DAILY PRN allergy symptoms 09/30/23 [History Confirmed 10/28/23 Last Taken Unknown] cholecalciferol (vitamin D3) 50 mcg (2,000 unit) capsule 50 mcg PO DAILY 09/30/23 [History Confirmed 10/28/23 Last Taken 10/08/23 08:00] clopidogrel 75 mg tablet (Plavix) 75 mg PO DAILY 09/30/23 [History Confirmed 10/28/23 Last Taken 10/09/23 08:00] metoprolol succinate 50 mg tablet,extended release 24 hr 50 mg PO DAILY 09/30/23 [History Confirmed 10/28/23 Last Taken 10/09/23 08:00] multivitamin 1 tab PO DAILY 09/30/23 [History Confirmed 10/28/23 Last Taken 10/09/23 08:00] polyethylene glycol 3350 17 gram oral powder packet 17 g PO DAILY PRN constipation 09/30/23 [History Confirmed 10/28/23 Last Taken 10/08/23 09:00] vitamin B complex 1 tab PO DAILY 09/30/23 [History Confirmed 10/28/23 Last Taken 10/09/23 08:00] calcium 500 mg tablet 500 mg PO DAILY 10/05/23 [History Confirmed 10/28/23 Last Taken 10/09/23 08:00] sucralfate 1 gram tablet (Carafate) 1 g PO .achs 10/05/23 [History Confirmed 10/28/23 Last Taken 10/09/23 18:00] acetaminophen 325 mg capsule 650 mg PO Q4-6H PRN fever or pain 10/13/23 [History Confirmed 10/28/23 Last Taken Unknown] Saccharomyces boulardii 250 mg capsule (Daily Probiotic (S. boulardii)) 250 mg PO BID #60 caps 10/23/23 [Rx Confirmed 10/28/23 Last Taken Unknown] cilostazol 50 mg tablet 50 mg PO BID #60 tabs 10/23/23 [Rx Confirmed 10/28/23 Last Taken Unknown] ipratropium 0.5 mg-albuterol 3 mg (2.5 mg base)/3 mL nebulization soln 3 ml inhalation Q4H PRN Shortness Of Breath Or Wheezing #30 mL 10/23/23 [Rx Confirmed 10/28/23 Last Taken Unknown] lorazepam 0.5 mg tablet 0.25 mg (1/2 x 0.5 mg) PO BEDTIME PRN insomnia #15 tabs 10/23/23 [Rx Confirmed 10/28/23 Last Taken Unknown] pantoprazole 40 mg tablet,delayed release (Protonix) See Rx Instructions .Route .COMPLEX #40 tabs 10/23/23 [Rx Confirmed 10/28/23 Last Taken Unknown] valsartan 40 mg tablet 40 mg PO DAILY #30 tabs 10/23/23 [Rx Confirmed 10/28/23 Last Taken Unknown] vancomycin 125 mg capsule (Vancocin) 125 mg PO Q6HR #24 caps 10/23/23 [Rx Confirmed 10/28/23 Last Taken Unknown] Home Acetaminophen (Acetaminophen 325 Mg Tablet) 650 mg PO Q4H PRN PRN Reason: Mild Pain Albuterol Sulfate (Albuterol Sulfate 0.083% Vial.Neb) 2.5 mg NEB RTQID PRN PRN Reason: Shortness of Breath Albuterol/Ipratropium (Ipratropium/Albuterol Vial.Neb) 3 ml NEB RTQ6H [facility] Last Admin: 10/29/23 11:12 Dose: 3 ml Amiodarone HCl (Amiodarone Hcl 200 Mg Tablet) 200 mg PO BID [facility] Last Admin: 10/29/23 09:01 Dose: 200 mg Aspirin (Aspirin 81 Mg Tab.Chew) 81 mg PO DAILYWM2 [facility] Last Admin: 10/29/23 09:00 Dose: 81 mg Atorvastatin Calcium (Atorvastatin Calcium 20 Mg Tablet) 80 mg PO BEDTIME OHLLY Buspirone HCl (Buspirone Hcl 10 Mg Tablet) 30 mg PO BID [facility] Last Admin: 10/29/23 09:00 Dose: 30 mg Calcium/Vitamin D (Calcium Carbonate/Vitamin D3 500 Mg/5 Mcg(200iu) 1 Each Tablet) 1 each PO DAILY [facility] Last Admin: 10/29/23 09:01 Dose: 1 each Cholecalciferol (Cholecalciferol (Vitamin D3) 1,000 Unit (25 Mcg) Tablet) 2,000 unit PO DAILY [facility] Last Admin: 10/29/23 09:00 Dose: 2,000 unit Enoxaparin Sodium (Enoxaparin Sodium 100 Mg/Ml Syr) 90 mg SUBCUT BID [facility] Furosemide (Furosemide Inj 20 Mg/2 Ml Vial) 20 mg IVP Q8H [facility] Last Admin: 10/29/23 06:13 Dose: 20 mg CEFTRIAXONE/D5W 1 GM PREMIX (Rocephin 1 Gm/50 Ml D5w) 1 gm in 50 mls @ 75 mls/hr IV BEDTIME [facility] Stop: 11/01/23 20:59 Azithromycin 500 mg/ Sodium (Chloride) 250 mls @ 250 mls/hr IV BEDTIME [facility] Stop: 10/31/23 23:29 Lorazepam (Lorazepam 0.5 Mg Tablet) 0.25 mg PO BEDTIME PRN PRN Reason: Anxiety Last Admin: 10/29/23 01:08 Dose: 0.25 mg Methylprednisolone Sodium Succinate (Methylprednisolone Sod Succ/Pf 40 Mg/Ml Vial) 40 mg IVP Q8HR [facility] Metoprolol Succinate (Metoprolol Succinate 50 Mg Tab.Er.24h) 50 mg PO DAILY [facility] Last Admin: 10/29/23 09:01 Dose: 50 mg Multivitamins (Multivitamin 1 Tab) 1 tab PO DAILY [facility] Last Admin: 10/29/23 09:01 Dose: 1 tab Pantoprazole Sodium (Pantoprazole Sodium 40 Mg Tablet.) 40 mg PO BIDAC2 [facility] Stop: 11/02/23 17:01 Last Admin: 10/29/23 09:27 Dose: 40 mg Pantoprazole Sodium (Pantoprazole Sodium 40 Mg Tablet.) 40 mg PO QDAC2 [facility] Polyethylene Glycol (Polyethylene Glycol 17 Gm Powd.Pack) 17 gm PO DAILY PRN PRN Reason: Constipation Saccharomyces Boulardii (Saccharomyces Boulardii 250 Mg Capsule) 250 mg PO BID [facility] Last Admin: 10/29/23 09:01 Dose: 250 mg Sodium Chloride (0.9% Sodium Chloride 10 Ml Disp.Syrin) 1 syr IVF Q8HR [facility] Sucralfate (Sucralfate 1 Gm Tablet) 1 gm PO ACHS2 [facility] Last Admin: 10/29/23 10:46 Dose: 1 gm Valsartan (Valsartan 80 Mg Tablet) 40 mg PO DAILY [facility] Last Admin: 10/29/23 09:00 Dose: 40 mg Vancomycin HCl (Vancomycin 125 Mg Capsule) 125 mg PO Q6HR [facility] Stop: 10/30/23 09:34 Last Admin: 10/29/23 10:46 Dose: 125 mg Vitamin B Complex (Vitamin B-100 Complex 1 Tablet) 1 tab PO DAILY [facility] Last Admin: 10/29/23 09:00 Dose: 1 tab Discontinued Medications Acetaminophen (Acetaminophen 325 Mg Tablet) 650 mg PO ONCE ONE Stop: 10/28/23 22:23 Last Admin: 10/28/23 22:27 Dose: 650 mg Clopidogrel Bisulfate (Clopidogrel Bisulfate 75 Mg Tablet) 75 mg PO DAILY [facility] Enoxaparin Sodium (Enoxaparin Sodium 100 Mg/Ml Syr) 90 mg SUBCUT ONCE ONE Stop: 10/29/23 06:34 Last Admin: 10/29/23 07:09 Dose: 90 mg Furosemide (Furosemide Inj 40 Mg/4 Ml Vial) 40 mg IVP ONCE ONE Stop: 10/28/23 22:45 Last Admin: 10/28/23 23:05 Dose: 40 mg CEFTRIAXONE/D5W 1 GM PREMIX (Rocephin 1 Gm/50 Ml D5w) 1 gm in 50 mls @ 100 mls/hr IV DAILY [facility] Stop: 10/31/23 22:59 Last Admin: 10/29/23 00:15 Dose: 100 mls/hr Azithromycin 500 mg/ Sodium (Chloride) 250 mls @ 250 mls/hr IV DAILY [facility] Stop: 10/31/23 23:29 Last Admin: 10/29/23 01:08 Dose: 250 mls/hr Methylprednisolone Sodium Succinate (Methylprednisolone Sod Succ/Pf 40 Mg/Ml Vial) 40 mg IVP Q8H [facility] Last Admin: 10/29/23 06:13 Dose: 40 mg Non-Formulary Medication (Calcium) 500 mg PO DAILY [facility] Pantoprazole Sodium (Pantoprazole Sodium 40 Mg Tablet.Dr) 40 mg PO QDAC2 [facility] Opioid Naive vs. Tolerant Does Patient Take Opioids?: No Is Patient Opioid Naive?: Yes What is Opioid Naive?: *Opioid Naive implies the patient is not already taking opioids or not chronically receiving opioids on a daily basis. *PRN dosing is not "usually" associated with tolerance. *Patients are at higher risk of over-sedation and aspiration. Is Patient Opioid Tolerant?: No What is Opioid Tolerant?: *Opioid Tolerance implies less than the expected response to an opioid. *Acquired tolerance is defined by the patient taking 60mg of oral morphine daily (or equianalgesic dose of another opioid) for 1 week or more. *Often associated with chronic pain. *May take more than usual dose to achieve desired pain control. Review of Systems Constitutional: Reports Fatigue Eyes: Reports No symptoms Ears: Reports No symptoms Nose: Reports No symptoms Mouth: Reports No symptoms Throat: Reports No symptoms Cardiovascular: Reports Edema Respiratory: Reports Shortness of air Gastrointestinal: Reports No symptoms Genitourinary: Reports No Symptoms Musculoskeletal: Reports No symptoms Endocrine: Reports No symptoms Hematology: Reports No symptoms Immunology: Reports No symptoms Neurological: Reports No symptoms Psychiatric: Reports No symptoms Physical examination Most Recent Vital Signs: Most Recent Vital Signs Temperature 97.8 F 10/29/23 10:00 Temperature Source Oral 10/29/23 10:00 Temperature Source Infrared 10/28/23 20:54 Pulse Rate 75 10/29/23 10:00 Respiratory Rate 24 H 10/29/23 10:00 Blood Pressure 94/57 L 10/29/23 10:00 Blood Pressure Mean 69 10/29/23 10:00 Blood Pressure Left Arm 140/71 10/29/23 00:46 Blood Pressure Location Right Arm 10/29/23 10:00 Blood Pressure Position Supine 10/29/23 10:00 O2 Sat by Pulse Oximetry 94 L 10/29/23 10:00 Oxygen Delivery Method Nasal Cannula 10/29/23 10:00 Oxygen Flow Rate 4 10/29/23 10:00 Fraction of Inspired Oxygen (FIO2) 100 10/29/23 07:35 Height 5 ft 6 in 10/29/23 07:22 Weight 199 lb 5 oz 10/29/23 07:22 Telemetry Type Remote Telemetry 10/29/23 07:00 Telemetry Monitoring Continues 10/29/23 07:00 Telemetry Heart Rate 74 10/29/23 07:00 Telemetry SPO2 100 10/29/23 07:00 EKG MT Interval 0.19 10/29/23 07:00 EKG QRS Interval 0.10 10/29/23 07:00 Telemetry Strip Reading SR 10/29/23 07:00 Appearance: Positive No Apparent Distress and Alert and Oriented x3 Skin: Positive Warm and Good Color HEENT: Positive Normocephalic and PERRLA Neck: Positive Supple and Midline Trachea Chest/Lungs: Positive Symmetrical With Equal Breath Sounds and Other (crackles throughout lung johnson) Heart: Positive RRR and Pulses Normal GI/: Positive Soft, Nontender and Bowel Sounds Normal Musculoskeletal: Positive Not Examined Extremities: Positive Intact Peripheral Pulses and Stable Joints Without Laxity Neurological: Positive Sensation Intact, Motor intact, Reflexes Intact, Alert and Oriented Labs This Visit Labs This Visit: Labs This Visit 10/28/23 10/28/23 10/28/23 21:10 21:27 22:04 WBC Cancelled RBC Hgb Hct MCV MCH MCHC RDW Coeff of Shaila Plt Count Immature Gran % (Auto) Neut % (Auto) Lymph % (Auto) [place] % (Auto) Eos % (Auto) Baso % (Auto) Neut # (Auto) Lymph # (Auto) [place] # (Auto) Eos # (Auto) Baso # (Auto) Immature Gran # (Auto) Puncture Site Lb Base Excess 6.1 H O2 Saturation 96.2 ABG pH 7.59 H* ABG pCO2 29.0 L ABG pO2 69.0 L ABG HCO3 27.8 ABG Total CO2 28.7 H Mauro Test + Hemoglobin 1.7 H Oxyhemoglobin 92.9 L Carboxyhemoglobin 2.7 H Total Hemoglobin 8.5 L O2 Delivery Device Cannula Oxygen Liter Flow 4.00 FiO2 % 36.0 Sodium Potassium Chloride Carbon Dioxide Anion Gap BUN Creatinine Estimated GFR (MDRD) BUN/Creatinine Ratio Glucose Calcium Total Bilirubin AST ALT Alkaline Phosphatase Troponin I NT-Pro-B Natriuret Pep Total Protein Albumin Globulin Albumin/Globulin Ratio D-Dimer Urine Color Urine Clarity Urine pH Ur Specific [place] Urine Protein Urine Glucose (UA) Urine Ketones Urine Blood Urine Nitrite Urine Bilirubin Urine Urobilinogen Ur Leukocyte Esterase Urine Microscopic RBC Urine Microscopic WBC Ur Squamous Epith Cells Urine Bacteria Urine Yeast SARS CoV-2 RNA Rapid JESUS Negative Blood Type Antibody Screen 10/28/23 10/28/23 10/28/23 22:04 22:04 22:04 WBC 11.88 H RBC Cancelled 2.77 L Hgb Cancelled 8.4 L Hct Cancelled MCV MCH MCHC RDW Coeff of Shaila Plt Count Immature Gran % (Auto) Neut % (Auto) Lymph % (Auto) [place] % (Auto) Eos % (Auto) Baso % (Auto) Neut # (Auto) Lymph # (Auto) [place] # (Auto) Eos # (Auto) Baso # (Auto) Immature Gran # (Auto) Puncture Site Base Excess O2 Saturation ABG pH ABG pCO2 ABG pO2 ABG HCO3 ABG Total CO2 Mauro Test Hemoglobin Oxyhemoglobin Carboxyhemoglobin Total Hemoglobin O2 Delivery Device Oxygen Liter Flow FiO2 % Sodium Potassium Chloride Carbon Dioxide Anion Gap BUN Creatinine Estimated GFR (MDRD) BUN/Creatinine Ratio Glucose Calcium Total Bilirubin AST ALT Alkaline Phosphatase Troponin I NT-Pro-B Natriuret Pep Total Protein Albumin Globulin Albumin/Globulin Ratio D-Dimer Urine Color Urine Clarity Urine pH Ur Specific [place] Urine Protein Urine Glucose (UA) Urine Ketones Urine Blood Urine Nitrite Urine Bilirubin Urine Urobilinogen Ur Leukocyte Esterase Urine Microscopic RBC Urine Microscopic WBC Ur Squamous Epith Cells Urine Bacteria Urine Yeast SARS CoV-2 RNA Rapid JESUS Blood Type Antibody Screen 10/28/23 10/28/23 10/28/23 22:04 22:04 22:04 WBC RBC Hgb Hct 27.1 L MCV Cancelled 97.8 MCH Cancelled 30.3 MCHC Cancelled RDW Coeff of Shaila Plt Count Immature Gran % (Auto) Neut % (Auto) Lymph % (Auto) [place] % (Auto) Eos % (Auto) Baso % (Auto) Neut # (Auto) Lymph # (Auto) [place] # (Auto) Eos # (Auto) Baso # (Auto) Immature Gran # (Auto) Puncture Site Base Excess O2 Saturation ABG pH ABG pCO2 ABG pO2 ABG HCO3 ABG Total CO2 Mauro Test Hemoglobin Oxyhemoglobin Carboxyhemoglobin Total Hemoglobin O2 Delivery Device Oxygen Liter Flow FiO2 % Sodium Potassium Chloride Carbon Dioxide Anion Gap BUN Creatinine Estimated GFR (MDRD) BUN/Creatinine Ratio Glucose Calcium Total Bilirubin AST ALT Alkaline Phosphatase Troponin I NT-Pro-B Natriuret Pep Total Protein Albumin Globulin Albumin/Globulin Ratio D-Dimer Urine Color Urine Clarity Urine pH Ur Specific [place] Urine Protein Urine Glucose (UA) Urine Ketones Urine Blood Urine Nitrite Urine Bilirubin Urine Urobilinogen Ur Leukocyte Esterase Urine Microscopic RBC Urine Microscopic WBC Ur Squamous Epith Cells Urine Bacteria Urine Yeast SARS CoV-2 RNA Rapid JESUS Blood Type Antibody Screen 10/28/23 10/28/23 10/28/23 22:04 22:04 22:04 WBC RBC Hgb Hct MCV MCH MCHC 31.0 L RDW Coeff of Shaila Cancelled 13.6 Plt Count Cancelled 458 H Immature Gran % (Auto) Cancelled Neut % (Auto) Lymph % (Auto) [place] % (Auto) Eos % (Auto) Baso % (Auto) Neut # (Auto) Lymph # (Auto) [place] # (Auto) Eos # (Auto) Baso # (Auto) Immature Gran # (Auto) Puncture Site Base Excess O2 Saturation ABG pH ABG pCO2 ABG pO2 ABG HCO3 ABG Total CO2 Mauro Test Hemoglobin Oxyhemoglobin Carboxyhemoglobin Total Hemoglobin O2 Delivery Device Oxygen Liter Flow FiO2 % Sodium Potassium Chloride Carbon Dioxide Anion Gap BUN Creatinine Estimated GFR (MDRD) BUN/Creatinine Ratio Glucose Calcium Total Bilirubin AST ALT Alkaline Phosphatase Troponin I NT-Pro-B Natriuret Pep Total Protein Albumin Globulin Albumin/Globulin Ratio D-Dimer Urine Color Urine Clarity Urine pH Ur Specific [place] Urine Protein Urine Glucose (UA) Urine Ketones Urine Blood Urine Nitrite Urine Bilirubin Urine Urobilinogen Ur Leukocyte Esterase Urine Microscopic RBC Urine Microscopic WBC Ur Squamous Epith Cells Urine Bacteria Urine Yeast SARS CoV-2 RNA Rapid JESUS Blood Type Antibody Screen 10/28/23 10/28/23 10/28/23 22:04 22:04 22:04 WBC RBC Hgb Hct MCV MCH MCHC RDW Coeff of Shaila Plt Count Immature Gran % (Auto) 0.4 Neut % (Auto) Cancelled 81.7 H Lymph % (Auto) Cancelled 9.8 L [place] % (Auto) Cancelled Eos % (Auto) Baso % (Auto) Neut # (Auto) Lymph # (Auto) [place] # (Auto) Eos # (Auto) Baso # (Auto) Immature Gran # (Auto) Puncture Site Base Excess O2 Saturation ABG pH ABG pCO2 ABG pO2 ABG HCO3 ABG Total CO2 Mauro Test Hemoglobin Oxyhemoglobin Carboxyhemoglobin Total Hemoglobin O2 Delivery Device Oxygen Liter Flow FiO2 % Sodium Potassium Chloride Carbon Dioxide Anion Gap BUN Creatinine Estimated GFR (MDRD) BUN/Creatinine Ratio Glucose Calcium Total Bilirubin AST ALT Alkaline Phosphatase Troponin I NT-Pro-B Natriuret Pep Total Protein Albumin Globulin Albumin/Globulin Ratio D-Dimer Urine Color Urine Clarity Urine pH Ur Specific [place] Urine Protein Urine Glucose (UA) Urine Ketones Urine Blood Urine Nitrite Urine Bilirubin Urine Urobilinogen Ur Leukocyte Esterase Urine Microscopic RBC Urine Microscopic WBC Ur Squamous Epith Cells Urine Bacteria Urine Yeast SARS CoV-2 RNA Rapid JESUS Blood Type Antibody Screen 10/28/23 10/28/23 10/28/23 22:04 22:04 22:04 WBC RBC Hgb Hct MCV MCH MCHC RDW Coeff of Shaila Plt Count Immature Gran % (Auto) Neut % (Auto) Lymph % (Auto) [place] % (Auto) 6.5 Eos % (Auto) Cancelled 1.3 Baso % (Auto) Cancelled 0.3 Neut # (Auto) Cancelled Lymph # (Auto) [place] # (Auto) Eos # (Auto) Baso # (Auto) Immature Gran # (Auto) Puncture Site Base Excess O2 Saturation ABG pH ABG pCO2 ABG pO2 ABG HCO3 ABG Total CO2 Mauro Test Hemoglobin Oxyhemoglobin Carboxyhemoglobin Total Hemoglobin O2 Delivery Device Oxygen Liter Flow FiO2 % Sodium Potassium Chloride Carbon Dioxide Anion Gap BUN Creatinine Estimated GFR (MDRD) BUN/Creatinine Ratio Glucose Calcium Total Bilirubin AST ALT Alkaline Phosphatase Troponin I NT-Pro-B Natriuret Pep Total Protein Albumin Globulin Albumin/Globulin Ratio D-Dimer Urine Color Urine Clarity Urine pH Ur Specific [place] Urine Protein Urine Glucose (UA) Urine Ketones Urine Blood Urine Nitrite Urine Bilirubin Urine Urobilinogen Ur Leukocyte Esterase Urine Microscopic RBC Urine Microscopic WBC Ur Squamous Epith Cells Urine Bacteria Urine Yeast SARS CoV-2 RNA Rapid JESUS Blood Type Antibody Screen 10/28/23 10/28/23 10/28/23 22:04 22:04 22:04 WBC RBC Hgb Hct MCV MCH MCHC RDW Coeff of Shaila Plt Count Immature Gran % (Auto) Neut % (Auto) Lymph % (Auto) [place] % (Auto) Eos % (Auto) Baso % (Auto) Neut # (Auto) 9.7 H Lymph # (Auto) Cancelled 1.2 [place] # (Auto) Cancelled 0.8 Eos # (Auto) Cancelled Baso # (Auto) Immature Gran # (Auto) Puncture Site Base Excess O2 Saturation ABG pH ABG pCO2 ABG pO2 ABG HCO3 ABG Total CO2 Mauro Test Hemoglobin Oxyhemoglobin Carboxyhemoglobin Total Hemoglobin O2 Delivery Device Oxygen Liter Flow FiO2 % Sodium Potassium Chloride Carbon Dioxide Anion Gap BUN Creatinine Estimated GFR (MDRD) BUN/Creatinine Ratio Glucose Calcium Total Bilirubin AST ALT Alkaline Phosphatase Troponin I NT-Pro-B Natriuret Pep Total Protein Albumin Globulin Albumin/Globulin Ratio D-Dimer Urine Color Urine Clarity Urine pH Ur Specific [place] Urine Protein Urine Glucose (UA) Urine Ketones Urine Blood Urine Nitrite Urine Bilirubin Urine Urobilinogen Ur Leukocyte Esterase Urine Microscopic RBC Urine Microscopic WBC Ur Squamous Epith Cells Urine Bacteria Urine Yeast SARS CoV-2 RNA Rapid JESUS Blood Type Antibody Screen 10/28/23 10/28/23 10/28/23 22:04 22:04 22:04 WBC RBC Hgb Hct MCV MCH MCHC RDW Coeff of Shaila Plt Count Immature Gran % (Auto) Neut % (Auto) Lymph % (Auto) [place] % (Auto) Eos % (Auto) Baso % (Auto) Neut # (Auto) Lymph # (Auto) [place] # (Auto) Eos # (Auto) 0.2 Baso # (Auto) Cancelled 0.0 Immature Gran # (Auto) Cancelled 0.1 Puncture Site Base Excess O2 Saturation ABG pH ABG pCO2 ABG pO2 ABG HCO3 ABG Total CO2 Mauro Test Hemoglobin Oxyhemoglobin Carboxyhemoglobin Total Hemoglobin O2 Delivery Device Oxygen Liter Flow FiO2 % Sodium 139.3 Potassium 3.75 Chloride 103.3 Carbon Dioxide 28.8 Anion Gap 10.95 BUN 15.5 Creatinine 0.67 Estimated GFR (MDRD) 83.00 BUN/Creatinine Ratio 23.13 Glucose 120.6 H Calcium 8.82 Total Bilirubin 0.62 AST 35.0 ALT 22.4 Alkaline Phosphatase 112.7 Troponin I 0.025 NT-Pro-B Natriuret Pep 630 H Total Protein 7.15 Albumin 3.76 Globulin 3.39 Albumin/Globulin Ratio 1.10 D-Dimer 2668.43 H Urine Color Urine Clarity Urine pH Ur Specific [place] Urine Protein Urine Glucose (UA) Urine Ketones Urine Blood Urine Nitrite Urine Bilirubin Urine Urobilinogen Ur Leukocyte Esterase Urine Microscopic RBC Urine Microscopic WBC Ur Squamous Epith Cells Urine Bacteria Urine Yeast SARS CoV-2 RNA Rapid JESUS Blood Type Antibody Screen 10/28/23 10/28/23 10/29/23 22:57 23:45 05:09 WBC 12.23 H RBC 2.52 L Hgb 7.6 L Hct 24.5 L MCV 97.2 MCH 30.2 MCHC 31.0 L RDW Coeff of Shaila 13.7 Plt Count 399 Immature Gran % (Auto) 0.4 Neut % (Auto) 94.4 H Lymph % (Auto) 3.4 L [place] % (Auto) 1.6 Eos % (Auto) 0.0 Baso % (Auto) 0.2 Neut # (Auto) 11.5 H Lymph # (Auto) 0.4 L [place] # (Auto) 0.2 L Eos # (Auto) 0.0 Baso # (Auto) 0.0 Immature Gran # (Auto) 0.1 Puncture Site Base Excess O2 Saturation ABG pH ABG pCO2 ABG pO2 ABG HCO3 ABG Total CO2 Mauro Test Hemoglobin Oxyhemoglobin Carboxyhemoglobin Total Hemoglobin O2 Delivery Device Oxygen Liter Flow FiO2 % Sodium 137.6 Potassium 3.75 Chloride 100.6 Carbon Dioxide 29.4 Anion Gap 11.35 BUN 13.9 Creatinine 0.64 Estimated GFR (MDRD) 88.00 BUN/Creatinine Ratio 21.71 Glucose 146.5 H Calcium 8.27 L Total Bilirubin 0.37 AST 33.1 ALT 21.9 Alkaline Phosphatase 108.4 Troponin I NT-Pro-B Natriuret Pep Total Protein 6.78 Albumin 3.58 Globulin 3.20 Albumin/Globulin Ratio 1.11 D-Dimer Urine Color Yellow Urine Clarity Slightly Urine pH 6.0 Ur Specific [place] 1.025 Urine Protein Negative Urine Glucose (UA) Negative Urine Ketones Negative Urine Blood Trace-intact H Urine Nitrite Positive H Urine Bilirubin Negative Urine Urobilinogen 0.2 Ur Leukocyte Esterase 1+ H Urine Microscopic RBC 0-2 Urine Microscopic WBC 5-10 Ur Squamous Epith Cells 2-5 Urine Bacteria Trace Urine Yeast 3+ SARS CoV-2 RNA Rapid JESUS Blood Type A POSITIVE Antibody Screen Negative 10/29/23 07:11 WBC RBC Hgb Hct MCV MCH MCHC RDW Coeff of Shaila Plt Count Immature Gran % (Auto) Neut % (Auto) Lymph % (Auto) [place] % (Auto) Eos % (Auto) Baso % (Auto) Neut # (Auto) Lymph # (Auto) [place] # (Auto) Eos # (Auto) Baso # (Auto) Immature Gran # (Auto) Puncture Site [employer] [employer] Excess 10.0 H O2 Saturation 99.8 H ABG pH 7.48 H ABG pCO2 45.0 ABG pO2 207.0 H ABG HCO3 33.5 H ABG Total CO2 34.9 H Mauro Test Pos Hemoglobin 0.8 Oxyhemoglobin 97.1 Carboxyhemoglobin 1.5 Total Hemoglobin 8.4 L O2 Delivery Device Non rebreather Oxygen Liter Flow 15.00 FiO2 % 100.0 Sodium Potassium Chloride Carbon Dioxide Anion Gap BUN Creatinine Estimated GFR (MDRD) BUN/Creatinine Ratio Glucose Calcium Total Bilirubin AST ALT Alkaline Phosphatase Troponin I NT-Pro-B Natriuret Pep Total Protein Albumin Globulin Albumin/Globulin Ratio D-Dimer Urine Color Urine Clarity Urine pH Ur Specific [place] Urine Protein Urine Glucose (UA) Urine Ketones Urine Blood Urine Nitrite Urine Bilirubin Urine Urobilinogen Ur Leukocyte Esterase Urine Microscopic RBC Urine Microscopic WBC Ur Squamous Epith Cells Urine Bacteria Urine Yeast SARS CoV-2 RNA Rapid JESUS Blood Type Antibody Screen Microbiology This Visit 10/28/23 23:45 Urine,Random Urine Culture - Preliminary Imaging Imaging: EXAM: CTA OF THE CHEST FINDINGS: Heart is enlarged. No pericardial effusion. No thoracic aortic aneurysm. Right lower lobe segmental pulmonary embolism. Right upper lobe pulmonary arterial filling defects. Severe bilateral lung infiltrates. Bronchial wall thickening and small to moderate right pleural effusion. No pneumothorax. No axillary lymphadenopathy. No mediastinal lymphadenopathy. Mildly enlarged bilateral hilar lymph nodes are probably reactive. Small to moderate hiatal hernia. Mild right hydronephrosis. No acute osseous abnormalities. Impression: 1. Acute right-sided pulmonary emboli. 2. Cardiomegaly with pulmonary edema. 3. Bilateral pneumonia. 4. Right pleural effusion. 5. Hiatal hernia. 6. Mild right hydronephrosis. Critical results communicated to [facility] at 1:18 a.m. 10/29/2023 EXAM: CHEST RADIOGRAPH FINDINGS: Patchy airspace changes seen in the right upper lobe which are not appreciated previously. No other focal consolidation. Mild prominence of the interstitium seen bilaterally which are similar to the prior examination and may represent chronic interstitial changes and less likely mild edema.. No appreciable wall effusion or pneumothorax. Cardiomediastinal silhouette and pulmonary vessels within normal limits for the technique and rotation. Upper abdomen is unremarkable. No acute bony abnormality. IMPRESSION: 1. Airspace changes seen in the right upper lobe . This may represent early pneumonia. Suggest follow-up exam to assess for clearing or other etiologies. 2. Mild prominence of the interstitium seen bilaterally which are similar to the prior examination and may represent chronic interstitial changes and less likely mild edema. Review Statement Review Statement: I have independently reviewed and interpreted the labs/EKGs/imaging that were ordered by the ER provider. I have reviewed all outside records that are available currently in our EMR including imaging/notes/labs from previous visits. Plan Plan: 1. Acute Hypoxic Respiratory Failure in setting of PE, CAP, & CHF Exacerbation - wean to baseline O2 as tolerated, nebs, steroids 2. Right lower lobe segmental Pulmonary Embolism - lovenox 1mg/kg BID, will transition to Eliquis PO on discharge, bilateral venous US ordered 3. Community Acquired Pneumonia - azith/rocephin, steroids, nebs, recently tested for legionella, strep pneumo, and MRSA which was negative 4. CHFpEF exacerbation - lasix 20 mg Q8H, I&O, daily weight, 1800 mL fluid restriction, continue entresto 5. Anemia - unknown source, will check iron studies, had recent GI bleed, will transfuse if continues to worsen, patient does not which to undergo further procedures/diagnostics 6. C.diff - Improving, no further symptoms, completes course of vancomycin today 7. Atrial Fibrillation - chronic, stable DVT Prophylaxis: Lovenox Time Spent: Greater than 80 minutes spent with patient, 50% of the time spent with this patient was devoted to counseling and coordination of care. [facility] minutes spent discussing advance care planning. Discussed plan of care extensively with patient and sister at bedside. Patient wishes to undergo treatment for above conditions with only medications. Does not wish to undergo further life-sustaining procedures. Discussed risks/benefits of treatment of PE. Patient wishes to continue treatment with lovenox and eliquis, but no other treatments/procedures for bleeding other than blood transfusions. States she wishes to be placed on Hospice if conditions do not improve in the next 2 days. Also wishes to be placed into a [facility] ([facility]) due to inability to stay at home safely alone with no family members able to care for her. Disposition: Admit to: Med/Surg Inpatient DNR Discussed Plan of Care with Dr. Sam Rubio. Medications Medication Orders: Medications Ordered Category Date Time Status 0.9 % Sodium Chloride [Saline Flush] Meds 10/29/23 13:00 Active 1 syr IVF Q8HR Acetaminophen [Tylenol] Meds 10/28/23 23:00 Active 650 mg PO Q4H PRN Albuterol Sulfate 0.083% Neb [Albuterol 0.083% Neb] Meds 10/28/23 23:00 Active 2.5 mg NEB RTQID PRN Amiodarone HCl [Cordarone] Meds 10/29/23 09:00 Active 200 mg PO BID Aspirin [Aspirin Chewable] Meds 10/29/23 07:30 Active 81 mg PO DAILYWM2 Atorvastatin Calcium [Lipitor] Meds 10/29/23 21:00 Active 80 mg PO BEDTIME Azithromycin Inj [Zithromax] 500 mg Meds 10/29/23 21:00 Active 0.9 % Sodium Chloride [Sodium Chloride] 250 ml IV BEDTIME Buspirone HCl [Buspar] Meds 10/29/23 09:00 Active 30 mg PO BID Calcium Carbonate/Vitamin D3 [Calcium 500 + Vit D 5 Mcg Meds 10/29/23 09:00 Active (200 Iu) Tablet] 1 each PO DAILY Ceftriaxone/D5w 1 gm Premix [Rocephin 1 gm/50 ml D5w] Meds 10/29/23 21:00 Active 1 gm in 50 ml IV BEDTIME Cholecalciferol (Vitamin D3) [Vitamin D] Meds 10/29/23 09:00 Active 2,000 unit PO DAILY Enoxaparin Sodium [Lovenox] Meds 10/29/23 22:00 Active 90 mg SUBCUT BID Furosemide [Lasix] Meds 10/29/23 07:00 Active 20 mg IVP Q8H Ipratropium/Albuterol Neb [Duoneb] Meds 10/29/23 00:00 Active 3 ml NEB RTQ6H Lorazepam [Ativan] Meds 10/28/23 23:04 Active 0.25 mg PO BEDTIME PRN Methylprednisolone Sod Succ/Pf [Solu-Medrol 40 mg] Meds 10/29/23 13:00 Active 40 mg IVP Q8HR Metoprolol Succinate [Toprol Xl] Meds 10/29/23 09:00 Active 50 mg PO DAILY Multivitamin [Multivitamin Tablet] Meds 10/29/23 09:00 Active 1 tab PO DAILY Pantoprazole Sodium [Protonix] Meds 10/29/23 09:00 Active 40 mg PO BIDAC2 Pantoprazole Sodium [Protonix] Meds 11/03/23 06:00 Active 40 mg PO QDAC2 Polyethylene Glycol 3350 [Miralax] Meds 10/28/23 23:04 Active 17 gm PO DAILY PRN Saccharomyces Boulardii [Florastor] Meds 10/29/23 09:00 Active 250 mg PO BID Sucralfate [Carafate] Meds 10/28/23 23:30 Active 1 gm PO ACHS2 Valsartan [Diovan] Meds 10/29/23 09:00 Active 40 mg PO DAILY Vancomycin Meds 10/29/23 09:35 Active 125 mg PO Q6HR Vitamin B-100 Complex [Balanced B-100] Meds 10/29/23 09:00 Active 1 tab PO DAILY
[2023-10-29] MEDS ORDERED: LIPITOR PO SCH (21:00)
[2023-10-29] MEDS ORDERED: ZITHROMAX 500 MG in SODIUM CHLORIDE 250 ML IV SCH (21:00)
[2023-10-29] MEDS ORDERED: ROCEPHIN 1 GM/50 ML D5W 1 GM/50 ML BAG IV SCH (21:00)
[2023-10-29] MEDS: LOVENOX SUBCUT SCH (21:15)
[2023-10-30] MEDS: VANCOMYCIN PO SCH ×2 (00:01→05:14)
[2023-10-30] MEDS: DUONEB NEB SCH ×3 (00:20→11:28)
[2023-10-30] MEDS: SOLU-MEDROL 40 MG IVP SCH (05:13)
[2023-10-30] MEDS: CARAFATE PO SCH ×2 (05:14→10:47)
[2023-10-30] MEDS: PROTONIX PO SCH (05:14)
[2023-10-30 06:04] LABS: HEMATOCRIT 26.1 % (37.0-47.0); HEMOGLOBIN 7.9 g/dl (12.0-16.0); IMMATURE GRANULOCYTE % (AUTO) 0.3 % (0.0-5.0); LYMPHOCYTES # (AUTO) 0.8 K/uL (0.60-3.4); LYMPHOCYTES % (AUTO) 9.1 (10.0-50.0); MEAN CORPUSCULAR HEMOGLOBIN 29.6 pg (27.0-31.0); MEAN CORPUSCULAR HGB CONC 30.3 (31.8-35.4); MEAN CORPUSCULAR VOLUME 97.8 fl (81.0-99.0); MONOCYTES # (AUTO) 0.3 K/uL (0.4-2.0); MONOCYTES % (AUTO) 3.6 (0-10); NEUTROPHILS # (AUTO) 7.7 K/ul (2.0-6.9); PLATELET COUNT 486 10^3/uL (140-440); RDW COEFFICIENT OF VARIATION 13.6 % (11.6-14.8); RED BLOOD COUNT 2.67 10^6/ul (4.20-5.40); WHITE BLOOD COUNT 8.83 K/ul (4.6-10.2)
[2023-10-30 06:25] LABS: ALANINE AMINOTRANSFERASE 22.7 U/L (0-35); ALBUMIN 3.8 g/dL (3.5-5.0); ALKALINE PHOSPHATASE 107.4 U/L (53-141); ASPARTATE AMINO TRANSFERASE 32.5 U/L (14-36); BILIRUBIN,TOTAL 0.35 mg/dL (0.2-1.3); BLOOD UREA NITROGEN 20.6 mg/dL (7-17); CALCIUM 8.64 mg/dL (8.4-10.2); CARBON DIOXIDE 33.4 mmol/L (22-30.0); CHLORIDE 96.8 mmol/L (98-107); CREATININE 0.85 mg/dL (0.60-1.30); POTASSIUM 3.57 mmol/L (3.5-5.1); SODIUM 136.7 mmol/L (134.5-145); TOTAL PROTEIN 6.98 g/dL (6.3-8.2)
[2023-10-30] MEDS: LASIX IVP SCH (06:25)
[2023-10-30] MEDS ORDERED: NITROSTAT SL PRN (07:37)
[2023-10-30] MEDS ORDERED: MORPHINE 2 MG/ML SYRINGE IVP PRN (07:37)
[2023-10-30] MEDS ORDERED: OCEAN NASAL SPRAY NAS PRN (07:56)
[2023-10-30] MEDS: CORDARONE PO SCH (08:28)
[2023-10-30] MEDS: DIOVAN PO SCH (08:28)
[2023-10-30] MEDS: BALANCED B-100 PO SCH (08:29)
[2023-10-30] MEDS: FLORASTOR PO SCH (08:29)
[2023-10-30] MEDS: VITAMIN D PO SCH (08:29)
[2023-10-30] MEDS: BUSPAR PO SCH (08:29)
[2023-10-30] MEDS: TOPROL XL PO SCH (08:29)
[2023-10-30] MEDS: ASPIRIN CHEWABLE PO SCH (08:29)
[2023-10-30] MEDS: CALCIUM 500 + VIT D 5 MCG (200 IU) TABLET PO SCH (08:29)
[2023-10-30] MEDS: MULTIVITAMIN TABLET PO SCH (08:30)
[2023-10-30] MEDS: LOVENOX SUBCUT SCH (08:30)
[2023-10-30 09:27] VITALS: BP 103/59; PULSE 75; RESP 22; TEMP 97.2
--- NOTE | 2023-10-30 09:43 | PCM.PROG ---
Date/Time Seen Date Seen by Provider: 10/30/23 Time Seen by Provider: 08:45 Provider Provider: [facility]N TOW[facility]END[facility] Chief Complaint Chief Complaint: ACUTE HYPOXIC RESP FAILURE, COMUMUNITY AQUIRED Subjective Subjective: Had episode of chest pain with radiation up into jaws this am. Resolved with 1 nitro. EKG did not show changes. Patient refused labs and does not wish to have any further work-up other than symptomatic treatment. Feeling better today despite chest pain. On 4L of oxygen at this time. Objective Appearance: Positive No Apparent Distress and Alert and Oriented x3 Chest/Lungs: Positive Symmetrical With Equal Breath Sounds, Good Air Movement all 4 Lung [place] and Other (mild crackles in lung bases) Heart: Positive RRR and Pulses Normal GI/: Positive Soft, Nontender, Bowel Sounds Normal and No Distention Musculoskeletal: Positive Not Examined Neurological: Positive Sensation Intact, Motor intact, Reflexes Intact, Alert and Oriented Vital Signs Vital Signs: Vital Signs: Last 24 Hours 10/29/23 09:55 10/29/23 10:00 10/29/23 13:00 Temperature 97.8 F Temperature Source Oral Pulse Rate 75 Respiratory Rate 24 H Blood Pressure 94/57 L Blood Pressure Mean 69 Blood Pressure Location Right Arm Blood Pressure Position Supine O2 Sat by Pulse Oximetry 94 L 94 L Oxygen Delivery Method Nasal Cannula Nasal Cannula Oxygen Flow Rate 4 4 Weight Telemetry Type Remote Telemetry Telemetry Monitoring Continues Telemetry Heart Rate 76 Telemetry SPO2 97 EKG SD Interval 0.20 EKG QRS Interval 0.10 Telemetry Strip Reading NSR 10/29/23 13:29 10/29/23 14:00 10/29/23 18:00 Temperature 97.8 F 98 F Temperature Source Oral Oral Pulse Rate 73 76 Respiratory Rate 20 23 H Blood Pressure 124/68 107/60 Blood Pressure Mean 86 75 Blood Pressure Location Right Arm Right Arm Blood Pressure Position Supine Sitting O2 Sat by Pulse Oximetry 94 L 94 L 92 L Oxygen Delivery Method Nasal Cannula Nasal Cannula Nasal Cannula Oxygen Flow Rate 4 4 4 Weight Telemetry Type Telemetry Monitoring Telemetry Heart Rate Telemetry SPO2 EKG SD Interval EKG QRS Interval Telemetry Strip Reading 10/29/23 19:00 10/29/23 20:00 10/29/23 20:00 Temperature Temperature Source Pulse Rate Respiratory Rate 20 Blood Pressure Blood Pressure Mean Blood Pressure Location Blood Pressure Position O2 Sat by Pulse Oximetry 94 L Oxygen Delivery Method Nasal Cannula Nasal Cannula Oxygen Flow Rate 4 4 Weight Telemetry Type Remote Telemetry Telemetry Monitoring Continues Telemetry Heart Rate 72 Telemetry SPO2 93 EKG SD Interval 0.24 H EKG QRS Interval 0.07 Telemetry Strip Reading SR WITH 1ST DEGREE AVB 10/29/23 21:24 10/30/23 01:00 10/30/23 02:00 Temperature 97.0 F L Temperature Source Temporal Artery Scan Pulse Rate 73 62 Respiratory Rate 20 20 Blood Pressure 121/64 Blood Pressure Mean 83 Blood Pressure Location Left Arm Blood Pressure Position Supine O2 Sat by Pulse Oximetry 92 L 93 L Oxygen Delivery Method Nasal Cannula Nasal Cannula Oxygen Flow Rate 4 2 Weight Telemetry Type Remote Telemetry Telemetry Monitoring Continues Telemetry Heart Rate 63 Telemetry SPO2 91 L EKG SD Interval 0.24 H EKG QRS Interval 0.07 Telemetry Strip Reading SR WITH 1ST DEGREE AVB 10/30/23 05:01 10/30/23 05:24 10/30/23 05:26 Temperature 97.7 F Temperature Source Oral Pulse Rate 81 Respiratory Rate 16 Blood Pressure 127/62 Blood Pressure Mean 83 Blood Pressure Location Left Arm Blood Pressure Position Supine O2 Sat by Pulse Oximetry 96 Oxygen Delivery Method Nasal Cannula Nasal Cannula Oxygen Flow Rate 4 4 Weight 201 lb 2 oz Telemetry Type Telemetry Monitoring Telemetry Heart Rate Telemetry SPO2 EKG SD Interval EKG QRS Interval Telemetry Strip Reading 10/30/23 07:00 10/30/23 07:58 10/30/23 09:26 Temperature 97.2 F L Temperature Source Tympanic Pulse Rate 75 Respiratory Rate 24 H 22 H Blood Pressure 103/59 L Blood Pressure Mean 73 Blood Pressure Location Left Arm Blood Pressure Position Sitting O2 Sat by Pulse Oximetry 93 L Oxygen Delivery Method Room Air Nasal Cannula Oxygen Flow Rate 4.5 4 Weight Telemetry Type Remote Telemetry Telemetry Monitoring Continues Telemetry Heart Rate 75 Telemetry SPO2 95 EKG SD Interval 0.20 EKG QRS Interval 0.09 Telemetry Strip Reading NSR Lab Results Lab Results: Lab Results: Last 24 Hours 10/30/23 05:49 WBC 8.83 RBC 2.67 L Hgb 7.9 L Hct 26.1 L MCV 97.8 MCH 29.6 MCHC 30.3 L RDW Coeff of Shaila 13.6 Plt Count 486 H Immature Gran % (Auto) 0.3 Neut % (Auto) 87.0 H Lymph % (Auto) 9.1 L [place] % (Auto) 3.6 Eos % (Auto) 0.0 Baso % (Auto) 0.0 Neut # (Auto) 7.7 H Lymph # (Auto) 0.8 [place] # (Auto) 0.3 L Eos # (Auto) 0.0 Baso # (Auto) 0.0 Immature Gran # (Auto) 0.0 Sodium 136.7 Potassium 3.57 Chloride 96.8 L Carbon Dioxide 33.4 H Anion Gap 10.07 BUN 20.6 H Creatinine 0.85 Estimated GFR (MDRD) 63.00 BUN/Creatinine Ratio 24.23 Glucose 143.0 H Calcium 8.64 Total Bilirubin 0.35 AST 32.5 ALT 22.7 Alkaline Phosphatase 107.4 Total Protein 6.98 Albumin 3.80 Globulin 3.18 Albumin/Globulin Ratio 1.19 Additional Comments Additional Comments: I have independently reviewed and interpreted the labs/EKGs/imaging ordered during this hospital stay. I have reviewed outside records that are available in our EMR that pertain to medical stay including imaging/notes/labs from previous visits. Active Medications Active Medications: Medications Generic Name Dose Route Start Last Admin Trade Name Freq PRN Reason Stop Dose Admin Acetaminophen 650 mg 10/28/23 23:00 Acetaminophen 325 Mg Tablet PO Q4H PRN Mild Pain Albuterol Sulfate 2.5 mg 10/28/23 23:00 Albuterol Sulfate 0.083% Vial.[facility] RTQID PRN Shortness of Breath Albuterol/Ipratropium 3 ml 10/29/23 00:00 10/30/23 05:02 Ipratropium/Albuterol Vial.[facility] 3 ml RTQ6H HOLLY Administration Amiodarone HCl 200 mg 10/29/23 09:00 10/30/23 08:28 Amiodarone Hcl 200 Mg Tablet PO 200 mg BID HOLLY Administration Aspirin 81 mg 10/29/23 07:30 10/30/23 08:29 Aspirin 81 Mg Tab.Chew PO 81 mg DAILYWM2 HOLLY Administration Atorvastatin Calcium 80 mg 10/29/23 21:00 10/29/23 21:15 Atorvastatin Calcium 20 Mg Tablet PO 80 mg BEDTIME HOLLY Administration Buspirone HCl 30 mg 10/29/23 09:00 10/30/23 08:29 Buspirone Hcl 10 Mg Tablet PO 30 mg BID HOLLY Administration Calcium/Vitamin D 1 each 10/29/23 09:00 10/30/23 08:29 Calcium Carbonate/Vitamin D3 500 Mg/5 Mcg(200iu) 1 Each Tablet PO 1 each DAILY HOLLY Administration Cholecalciferol 2,000 unit 10/29/23 09:00 10/30/23 08:29 Cholecalciferol (Vitamin D3) 1,000 Unit (25 Mcg) Tablet PO 2,000 unit DAILY HOLLY Administration Enoxaparin Sodium 90 mg 10/29/23 22:00 10/30/23 08:30 Enoxaparin Sodium 100 Mg/Ml Syr SUBCUT 90 mg BID HOLLY Administration Furosemide 20 mg 10/29/23 07:00 10/30/23 06:25 Furosemide Inj 20 Mg/2 Ml Vial IVP 20 mg Q8H HOLLY Administration CEFTRIAXONE/D5W 1 GM PREMIX 1 gm in 50 mls @ 75 mls/hr 10/29/23 21:00 10/29/23 20:12 Rocephin 1 Gm/50 Ml D5w IV 11/01/23 20:59 75 mls/hr BEDTIME HOLLY Administration Azithromycin 500 mg/ Sodium 250 mls @ 250 mls/hr 10/29/23 21:00 10/29/23 21:13 Chloride IV 10/31/23 23:29 250 mls/hr BEDTIME HOLLY Administration Lorazepam 0.25 mg 10/28/23 23:04 10/29/23 21:07 Lorazepam 0.5 Mg Tablet PO 0.25 mg BEDTIME PRN Administration Anxiety Methylprednisolone Sodium Succinate 40 mg 10/29/23 13:00 10/30/23 05:13 Methylprednisolone Sod Succ/Pf 40 Mg/Ml Vial IVP 40 mg Q8HR HOLLY Administration Metoprolol Succinate 50 mg 10/29/23 09:00 10/30/23 08:29 Metoprolol Succinate 50 Mg Tab.Er.24h PO 50 mg DAILY HOLLY Administration Morphine Sulfate 2 mg 10/30/23 07:37 Morphine Sulfate 2 Mg/Ml Syringe IVP Q6H PRN Chest Pain Multivitamins 1 tab 10/29/23 09:00 10/30/23 08:30 Multivitamin 1 Tab PO 1 tab DAILY HOLLY Administration Nitroglycerin 0.4 mg 10/30/23 07:37 10/30/23 07:44 Nitroglycerin 0.4 Mg Tab.Subl SL 0.4 mg Q5MIN X 3 DOSES PRN Administration Chest Pain Pantoprazole Sodium 40 mg 10/29/23 09:00 10/30/23 05:14 Pantoprazole Sodium 40 Mg Tablet.Dr HUTCHINSON 11/02/23 17:01 40 mg BIDAC2 HOLLY Administration Pantoprazole Sodium 40 mg 11/03/23 06:00 Pantoprazole Sodium 40 Mg Tablet.Dr HUTCHINSON QDAC2 HOLLY Polyethylene Glycol 17 gm 10/28/23 23:04 Polyethylene Glycol 17 Gm Powd.Pack PO DAILY PRN Constipation Saccharomyces Boulardii 250 mg 10/29/23 09:00 10/30/23 08:29 Saccharomyces Boulardii 250 Mg Capsule PO 250 mg BID HOLLY Administration Sodium Chloride 1 syr 10/29/23 13:00 10/30/23 05:13 0.9% Sodium Chloride 10 Ml Disp.Syrin IVF 1 syr Q8HR HOLLY Administration Sodium Chloride 2 spray 10/30/23 07:56 10/30/23 08:28 Sodium Chloride 40 Ml Nasal [place] NESHA 2 spray PRN PRN Administration Nasal Congestion Sucralfate 1 gm 10/28/23 23:30 10/30/23 05:14 Sucralfate 1 Gm Tablet PO 1 gm ACHS2 HOLLY Administration Valsartan 40 mg 10/29/23 09:00 10/30/23 08:28 Valsartan 80 Mg Tablet PO 40 mg DAILY HOLLY Administration Vitamin B Complex 1 tab 10/29/23 09:00 10/30/23 08:29 Vitamin B-100 Complex 1 Tablet PO 1 tab DAILY HOLLY Administration Plan Plan: 1. Acute Hypoxic Respiratory Failure in setting of PE, CAP, & CHF Exacerbation - Improving, on 3-4L, wean to baseline O2 as tolerated, nebs, steroids 2. Right lower lobe segmental Pulmonary Embolism - lovenox 1mg/kg BID, will transition to Eliquis PO on discharge, bilateral venous US ordered 3. Community Acquired Pneumonia - azith/rocephin, steroids, nebs, recently tested for legionella, strep pneumo, and MRSA which was negative 4. CHFpEF exacerbation - Improving, diuresing well, will transition to PO lasix tomorrow - continue 20 mg Q8H today, I&O, daily weight, 1800 mL fluid restriction, continue entresto 5. Anemia - unknown source, had recent GI bleed, patient does not wish to pursue or undergo blood transfusion 6. C.diff - Resolved, no further symptoms, completed abx 7. Atrial Fibrillation - chronic, stable 8. Chest Pain - no EKG changes, refused labs or further work-up, nitro resolved pain, will order prn for further episodes DVT Prophylaxis: Lovenox Accepted to [facility] upon Discharge Review Statement Review Statement: I have personally discussed and reviewed the patient's visit/currently labs/imaging/decision making with Dr. Rubio, my supervising attending. Greater that 50 minutes spent with patient, 50% of the time spent with this patient was devoted to counseling and coordination of care.
--- NOTE | 2023-10-30 11:01 | DCSUM ---
Admission Date Admission Date: 10/28/23 Discharge Date Discharge Date: 10/30/23 Admission Diagnosis Admission Diagnosis: 1. Acute Hypoxic Respiratory Failure in setting of PE, CAP, & CHF Exacerbation 2. Right lower lobe segmental Pulmonary Embolism 3. Community Acquired Pneumonia 4. CHFpEF exacerbation 5. Anemia 6. C.diff 7. Atrial Fibrillation Discharge Diagnosis Discharge Diagnosis: 1. Acute Hypoxic Respiratory Failure in setting of PE, CAP, & CHF Exacerbation - Resolved 2. Right lower lobe segmental Pulmonary Embolism - Stable 3. Community Acquired Pneumonia - Improving 4. CHFpEF exacerbation - Resolved 5. Anemia - Stable, refused treatment 6. C.diff - Resolved 7. Atrial Fibrillation - chronic, stable 8. Chest Pain - refused to undergo testing or further work-up Hospital Provider Hospital Provider: LINCOLN TOWNSEND, [facility] Primary Care Physician Primary Care Physician: JAIRON ROJAS Summary of History and Physical Summary of History and Physical: 87 yo female presented to the ER via ambulance from home with complaints of shortness of breath. Patient states she went to Cardiology appointment yesterday and felt short of breath then. She was told she had some crackles on the left side at that time and they sent in a prescription for lasix in which she was to start this morning. Upon arrival to the ER, O2 sat was maintaining upper 80s-90% on 4L. Throughout the night she became more short of breath, and required placement on NRB. This was able to be weaned off this am. Chest x-ray in ER showed R upper lobe pneumonia and interstitial edema. D-dimer was found to be high and CTA of chest was ordered. Patient was found to have right lower lobe segmental pulmonary embolism in addition to pulmonary edema and bilateral pneumonia. She was given rocephin and 40 mg IVP lasix in the ER and admitted to the floor. At this time patient states she is feeling some better after treatment overnight, but is very concerned with prognosis. Denies any fever at home that she is aware of. Initially thought she was only having a panic attack when she came to the ER due to her history of anxiety. Currently on 4L via NC. Requesting skilled nursing placement upon discharge. Hospital Course Subjective: During stay, patient has received azithromycin, rocephin, steroids, and nebs for treatment of bilateral pneumonia. She received lasix 20 mg Q8H IV for CHF exacerbation and diuresed well. For treatment of PE, she was given lovenox 1mg/kg BID and discharged with eliquis PE protocol. She was previously taking plavix and pletal from cardiac stent placement and CVA. Hemoglobin has continued to decline. Patient does not wish to undergo intervention or any diagnostic testing to correct this. Determined she would take the lovenox and eliquis for treatment of PE and then no other anticoagulants. She continues to require 3-4L via NC continuously. Incidently, urine culture showed growth of gram negative rods. Patient is asymptomatic for urinary symptoms. This has been covered with rocephin. D/c with keflex and will follow culture to determine if resistant to current regimen. Patient developed chest pain this am around 7:15. EKG completed and showed no acute changes. Patient refused troponins. Nitro was given and pain resolved. Sent with Rx. Home medications continued and changes noted above. Vital Signs: Most Recent Vital Signs Temperature 97.2 F L 10/30/23 09:26 Temperature Source Tympanic 10/30/23 09:26 Temperature Source Infrared 10/28/23 20:54 Pulse Rate 75 10/30/23 09:26 Respiratory Rate 22 H 10/30/23 09:26 Blood Pressure 103/59 L 10/30/23 09:26 Blood Pressure Mean 73 10/30/23 09:26 Blood Pressure Left Arm 140/71 10/29/23 00:46 Blood Pressure Location Left Arm 10/30/23 09:26 Blood Pressure Position Sitting 10/30/23 09:26 O2 Sat by Pulse Oximetry 93 L 10/30/23 09:26 Oxygen Delivery Method Nasal Cannula 10/30/23 10:00 Oxygen Flow Rate 4 10/30/23 10:00 Fraction of Inspired Oxygen (FIO2) 100 10/29/23 07:35 Height 5 ft 6 in 10/29/23 07:22 Weight 201 lb 2 oz 10/30/23 05:26 Telemetry Type Remote Telemetry 10/30/23 07:00 Telemetry Monitoring Continues 10/30/23 07:00 Telemetry Heart Rate 75 10/30/23 07:00 Telemetry SPO2 95 10/30/23 07:[address] Interval 0.20 10/30/23 07:00 EKG QRS Interval 0.09 10/30/23 07:00 Telemetry Strip Reading NSR 10/30/23 07:00 Lab Results Last 24 Hours: 10/30/23 05:49 WBC 8.83 RBC 2.67 L Hgb 7.9 L Hct 26.1 L MCV 97.8 MCH 29.6 MCHC 30.3 L RDW Coeff of Shaila 13.6 Plt Count 486 H Immature Gran % (Auto) 0.3 Neut % (Auto) 87.0 H Lymph % (Auto) 9.1 L [place] % (Auto) 3.6 Eos % (Auto) 0.0 Baso % (Auto) 0.0 Neut # (Auto) 7.7 H Lymph # (Auto) 0.8 [place] # (Auto) 0.3 L Eos # (Auto) 0.0 Baso # (Auto) 0.0 Immature Gran # (Auto) 0.0 Sodium 136.7 Potassium 3.57 Chloride 96.8 L Carbon Dioxide 33.4 H Anion Gap 10.07 BUN 20.6 H Creatinine 0.85 Estimated GFR (MDRD) 63.00 BUN/Creatinine Ratio 24.23 Glucose 143.0 H Calcium 8.64 Total Bilirubin 0.35 AST 32.5 ALT 22.7 Alkaline Phosphatase 107.4 Total Protein 6.98 Albumin 3.80 Globulin 3.18 Albumin/Globulin Ratio 1.19 Discharge Instructions Discharge Planning: Discharge Planning > 40 minutes If patient is discharged with left ventricular systolic dysfunction: NA Discharged with a beta oriana? [] If no, why not? [] Discharged with an shady/arb? [] If no, why not? [] DX: ACUTE HYPOXIC RESPIRATORY FAILURE, PE, CAP, CHF EXACERBATION, UTI CARDIAC DIET WITH 2L FLUID RESTRICTION FOLLOW-UP WITH PCP NEXT WEEK RX: KEFLEX, LASIX, MEDROL PACK, ELIQUIS Discharge Medications: Medications at Discharge (Home Meds & RX) albuterol sulfate 90 mcg/actuation aerosol inhaler 2 inh inhalation Q6H PRN shortness of breath or wheezing 09/30/23 amiodarone 200 mg tablet 200 mg PO BID 09/30/23 aspirin 81 mg chewable tablet 81 mg PO DAILY 09/30/23 atorvastatin 80 mg tablet 80 mg PO BEDTIME 09/30/23 buspirone 30 mg tablet 30 mg PO BID 09/30/23 cetirizine 10 mg tablet 10 mg PO DAILY PRN allergy symptoms 09/30/23 cholecalciferol (vitamin D3) 50 mcg (2,000 unit) capsule 50 mcg PO DAILY 09/30/23 clopidogrel 75 mg tablet (Plavix) 75 mg PO DAILY 09/30/23 metoprolol succinate 50 mg tablet,extended release 24 hr 50 mg PO DAILY 09/30/23 multivitamin 1 tab PO DAILY 09/30/23 polyethylene glycol 3350 17 gram oral powder packet 17 g PO DAILY PRN constipation 09/30/23 vitamin B complex 1 tab PO DAILY 09/30/23 calcium 500 mg tablet 500 mg PO DAILY 10/05/23 sucralfate 1 gram tablet (Carafate) 1 g PO .achs 10/05/23 acetaminophen 325 mg capsule 650 mg PO Q4-6H PRN fever or pain 10/13/23 Saccharomyces boulardii 250 mg capsule (Daily Probiotic (S. boulardii)) 250 mg PO BID #60 caps 10/23/23 cilostazol 50 mg tablet 50 mg PO BID #60 tabs 10/23/23 ipratropium 0.5 mg-albuterol 3 mg (2.5 mg base)/3 mL nebulization soln 3 ml in halation Q4H PRN Shortness Of Breath Or Wheezing #30 mL 10/23/23 lorazepam 0.5 mg tablet 0.25 mg (1/2 x 0.5 mg) PO BEDTIME PRN insomnia #15 tabs 10/23/23 pantoprazole 40 mg tablet,delayed release (Protonix) See Rx Instructions .Route .COMPLEX #40 tabs 10/23/23 valsartan 40 mg tablet 40 mg PO DAILY #30 tabs 10/23/23 vancomycin 125 mg capsule (Vancocin) 125 mg PO Q6HR #24 caps 10/23/23 Discharge Plan Discharge Discharge Orders: Discharge Patient (ONCE); Ordered 10/30/23 Ordered By: OC CHAVARRIA Activity Restrictions/Additional Instructions: Cardiac diet with 2L fluid restriction Activity as tolerated Follow-up with PCP next week Oxygen 2-4L continuous Medications: Eliquis 5 mg BID x 1 week then 5 mg daily thereafter Keflex 500 mg BID x 7 days Medrol dose pack - take as directed until complete Duoneb as ordered Lasix 20 mg daily Saline spray prn Nitro prn for chest pain Instructions: Heart Failure (GEN), Pulmonary Embolism (GEN), Community Acquired Pneumonia (IP), Urinary Tract Infection in Older Adults (GEN) Patient Disposition: TRANSFER SNF Prescriptions: New nitroglycerin [Nitrostat] 0.4 mg Tablet, Sublingual 0.4 mg sublingual Q5MIN X 3 DOSES PRNQty: 30 0RF [place] Nasal 0.65 % Aerosol,Silt 2 spray intranasal PRN PRNQty: 100 0RF furosemide [Lasix] 20 mg tablet 20 mg PO DAILY Qty: 30 0RF cephalexin 500 mg capsule 500 mg PO BID Qty: 14 0RF methylprednisolone [Medrol (Eze)] 4 mg tablets,dose pack See Rx Instructions .ROUTE .COMPLEX Qty: 21 0RF Rx Instructions: orally per package directions Eliquis 5 mg tablet 5 mg PO BID Qty: 30 0RF Rx Instructions: Twice a day for the first 7 days and then daily after hydrocodone-acetaminophen 5-325 mg tablet 1 tab PO Q4-6H PRN (Reason: pain) Qty: 30 0RF Continued amiodarone 200 mg tablet 200 mg PO BID aspirin 81 mg tablet,chewable 81 mg PO DAILY atorvastatin 80 mg tablet 80 mg PO BEDTIME polyethylene glycol 3350 17 gram powder in packet 17 g PO DAILY PRN (Reason: constipation) albuterol sulfate 90 mcg/actuation HFA aerosol inhaler 2 inh inhalation Q6H PRN (Reason: shortness of breath or wheezing) buspirone 30 mg tablet 30 mg PO BID cetirizine 10 mg tablet 10 mg PO DAILY PRN (Reason: allergy symptoms) metoprolol succinate 50 mg tablet extended release 24 hr 50 mg PO DAILY multivitamin Tablet 1 tab PO DAILY cholecalciferol (vitamin D3) 50 mcg (2,000 unit) capsule 50 mcg PO DAILY vitamin B complex Tablet 1 tab PO DAILY sucralfate [Carafate] 1 gram tablet 1 g PO .achs calcium 500 mg tablet 500 mg PO DAILY acetaminophen 325 mg capsule 650 mg PO Q4-6H PRN (Reason: fever or pain) lorazepam 0.5 mg Tablet 0.25 mg PO BEDTIME PRN (Reason: insomnia) Qty: 15 0RF valsartan 40 mg tablet 40 mg PO DAILY Qty: 30 0RF Rx Instructions: IN PLACE OF ENTRESTO pantoprazole [Protonix] 40 mg tablet,delayed release (DR/EC) See Rx Instructions .ROUTE .COMPLEX Qty: 40 0RF Rx Instructions: TAKE 40 MG BID X 10 DAYS, THEN 40 MG ONCE DAILY ipratropium-albuterol 0.5 mg-3 mg(2.5 mg base)/3 mL solution for nebulization 3 ml inhalation Q4H PRN (Reason: Shortness Of Breath Or Wheezing) Qty: 30 0RF Saccharomyces boulardii [Daily Probiotic (S. boulardii)] 250 mg capsule 250 mg PO BID Qty: 60 0RF Discontinued clopidogrel [Plavix] 75 mg tablet 75 mg PO DAILY vancomycin [Vancocin] 125 mg Capsule 125 mg PO Q6HR Qty: 24 0RF cilostazol 50 mg tablet 50 mg PO BID Qty: 60 0RF Did you review [place] TOLL BRIDGE OPERATOR for ALL controlled substances?: No Discussed opioids are addictive and Narcan is available by prescription or from pharmacy.: No Condition: Fair
[2023-11-03] MEDS ORDERED: PROTONIX PO SCH (06:00)
[2023-11-08] MEDS ORDERED: PROTONIX PO SCH (06:00)
== END 2023-10-30 12:15 | DRG 189 ==
LOC: ED 20:53 → MEDSURG B 20:53
PROVIDERS: ADMIT Hospitalist; ATTEND Nurse Practitioner Family
DX: N39.0 Urinary tract infection, site not specified; I50.43 Acute on chronic combined systolic (congestive) and diastolic (congestive) heart failure; J81.0 Acute pulmonary edema; D64.9 Anemia, unspecified; I26.93 Single subsegmental thrombotic pulmonary embolism without acute cor pulmonale; A04.72 Enterocolitis due to Clostridium difficile, not specified as recurrent; R91.1 Solitary pulmonary nodule; J18.9 Pneumonia, unspecified organism; I48.91 Unspecified atrial fibrillation; J96.01 Acute respiratory failure with hypoxia

== ENCOUNTER 2023-11-01 00:05 | Inpatient (IN) ==
[2023-11-01] MEDS ORDERED: ACETAMINOPHEN 1,000 MG/100 ML BAG IV ONE (00:19)
[2023-11-01] MEDS ORDERED: DUONEB NEB ONE (00:19)
[2023-11-01] MEDS ORDERED: SUBLIMAZE IVP ONE (00:20)
[2023-11-01 00:43] LABS: BASOPHILS % (AUTO) 0.1 % (0.0-3.0); EOSINOPHILS # (AUTO) 0.1 K/ul (0.0-0.7); EOSINOPHILS % (AUTO) 0.5 % (0.0-7.0); HEMATOCRIT 24.9 % (37.0-47.0); HEMOGLOBIN 7.6 g/dl (12.0-16.0); IMMATURE GRANULOCYTE # (AUTO) 0.1 (0.0-1.0); IMMATURE GRANULOCYTE % (AUTO) 0.6 % (0.0-5.0); LYMPHOCYTES # (AUTO) 1.4 K/uL (0.60-3.4); LYMPHOCYTES % (AUTO) 12.3 (10.0-50.0); MEAN CORPUSCULAR HEMOGLOBIN 29.3 pg (27.0-31.0); MEAN CORPUSCULAR HGB CONC 30.5 (31.8-35.4); MEAN CORPUSCULAR VOLUME 96.1 fl (81.0-99.0); MONOCYTES # (AUTO) 0.8 K/uL (0.4-2.0); MONOCYTES % (AUTO) 7.2 (0-10); NEUTROPHILS # (AUTO) 9.2 K/ul (2.0-6.9); NEUTROPHILS % (AUTO) 79.3 % (42.2-75.2); PLATELET COUNT 501 10^3/uL (140-440); RDW COEFFICIENT OF VARIATION 13.7 % (11.6-14.8); RED BLOOD COUNT 2.59 10^6/ul (4.20-5.40); WHITE BLOOD COUNT 11.62 K/ul (4.6-10.2)
[2023-11-01 00:50] LABS: ALBUMIN 3.53 g/dL (3.5-5.0); ASPARTATE AMINO TRANSFERASE 49.8 U/L (14-36); BILIRUBIN,TOTAL 0.46 mg/dL (0.2-1.3); BLOOD UREA NITROGEN 46.7 mg/dL (7-17); CALCIUM 8.53 mg/dL (8.4-10.2); CARBON DIOXIDE 33.2 mmol/L (22-30.0); CHLORIDE 94.7 mmol/L (98-107); CREATININE 2.11 mg/dL (0.60-1.30); GLUCOSE 106.4 mg/dL (74-106); POTASSIUM 3.2 mmol/L (3.5-5.1); SODIUM 133.9 mmol/L (134.5-145); TOTAL PROTEIN 6.51 g/dL (6.3-8.2)
[2023-11-01 01:04] LABS: ABG O2 HGB 93.7 % (95-100); ABG PH 7.47 (7.35-7.45); BEecf 11.2 (-2.0-3.0); COHb 2.3 (0.5-1.5); HCO3 34.9 (21-28); MetHb 1.3 (0-1.5); TCO2 36.4 (19-24); sO2 95.6 % (94-98); tHb 8.1 g/dl (11.7-17.4)
[2023-11-01 01:06] LABS: MOLECULAR FLU A NEGATIVE BY NAAT (NEGATIVE); MOLECULAR FLU B NEGATIVE BY NAAT (NEGATIVE); RSV MOLECULAR NEGATIVE BY NAAT (NEGATIVE); SARS COV-2 RNA RAPID NAAT NEGATIVE (NEGATIVE)
--- NOTE | 2023-11-01 01:19 | DI ---
EXAM: CHEST ONE-VIEW History: Hypoxia FINDINGS: Compared with 10/28/2023. Normal cardiomediastinal contours. Bilateral lung infiltrates stable from CT 10/29/2023. Consolidative change of the medial right midlung, stable. Bronchiectasis and bronchial wall thickening in the bases. A small right pleural fluid, stable. No acute chest wa ll abnormality. Impression: Stable from chest CT 10/29/2023 Bilateral multilobar infiltrates with right midlung consolidative change Bronchiectasis and bronchial wall thickening in the bases
[2023-11-01] MEDS ORDERED: BUMEX IVP ONE (01:25)
[2023-11-01] MEDS ORDERED: ROCEPHIN 1 GM/50 ML D5W 1 GM/50 ML BAG IV ONE (01:25)
[2023-11-01] MEDS ORDERED: ZITHROMAX 500 MG in SODIUM CHLORIDE 250 ML IV ONE (01:26)
--- NOTE | 2023-11-01 01:38 | ED.PDOC ---
General ED Provider: Dr. ZEN THOMAS DO Chief Complaint: Shortness of Air Stated Complaint: 87 year old female presents to the emergency department with chief complaint of shortness of breath, chest, and neck pain x 10 hours [employer]. Time Seen by Provider: 11/01/23 00:12 Information Source: Patient, Halfway and EMT Primary Care Provider: JAIRON ROJAS Nursing and Triage Documentation Reviewed and Agree: Yes What is Opioid Naive?: *Opioid Naive implies the patient is not already taking opioids or not chronically receiving opioids on a daily basis. *PRN dosing is not "usually" associated with tolerance. *Patients are at higher risk of over-sedation and aspiration. What is Opioid Tolerant?: *Opioid Tolerance implies less than the expected response to an opioid. *Acquired tolerance is defined by the patient taking 60mg of oral morphine daily (or equianalgesic dose of another opioid) for 1 week or more. *Often associated with chronic pain. *May take more than usual dose to achieve desired pain control. Review of Systems Review Of Systems Constitutional: Reports No symptoms All Other Systems: Reviewed and Negative [facility] Medical History TIA (transient ischemic attack) G45.9 - Transient cerebral ischemic attack, unspecified (ICD-10) FHx: cholecystectomy Z83.79 - Family history of other diseases of the digestive system (ICD-10) Cataract H26.9 - Unspecified cataract (ICD-10) Thyroid disease E07.9 - Disorder of thyroid, unspecified (ICD-10) Stroke I63.9 - Cerebral infarction, unspecified (ICD-10) Osteoarthritis M19.90 - Unspecified osteoarthritis, unspecified site (ICD-10) Obesity E66.9 - Obesity, unspecified (ICD-10) CHF (congestive heart failure) I50.9 - Heart failure, unspecified (ICD-10) Melanoma C43.9 - Malignant melanoma of skin, unspecified (ICD-10) Hyperlipidemia E78.5 - Hyperlipidemia, unspecified (ICD-10) ABDIRASHID (generalized anxiety disorder) F41.1 - Generalized anxiety disorder (ICD-10) Depressed F32.A - Depression, unspecified (ICD-10) Allergic rhinitis J30.9 - Allergic rhinitis, unspecified (ICD-10) Cervical radiculopathy M54.12 - Radiculopathy, cervical region (ICD-10) COPD (chronic obstructive pulmonary disease) J44.9 - Chronic obstructive pulmonary disease, unspecified (ICD-10) Afib I48.91 - Unspecified atrial fibrillation (ICD-10) Hypertension I10 - Essential (primary) hypertension (ICD-10) GERD (gastroesophageal reflux disease) K21.9 - Gastro-esophageal reflux disease without esophagitis (ICD-10) MARCELO (obstructive sleep apnea) G47.33 - Obstructive sleep apnea (adult) (pediatric) (ICD-10) Family History FATHER Heart disease Mother Heart disease Social History (Updated 11/04/23 @ 15:22 by NIKIA WHALEY RN) Smoking and tobacco status: Never smoker Alcohol intake: never Substance use type: does not use Surgical History Status post cardiac catheterization Z98.890 - Other specified postprocedural states (ICD-10) 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) H/O total hysterectomy Z90.710 - Acquired absence of both cervix and uterus (ICD-10) Physical Exam Physical Exam Appearance: Reports Ill-appearing Ill-appearing: Moderate Pain Distress: None Eyes: Reports STORMY and EOMI ENT: Reports Ears normal and Nose normal Neck: Supple Respiratory: Reports Airway patent, Crackles and Wheezes Cardiovascular: Reports RRR, Pulses normal and Other (hear sounds distant) GI/: Reports Soft and Nontender Musculoskeletal: Reports Normal strength and ROM intact Skin: Reports Warm, Dry and Normal color Neurological: Reports Sensation intact and Motor intact Psychiatric: Reports Affect appropriate and Mood appropriate Course Course 11/01/23 05:54 11/01/23 05:54 Orders, Labs, Meds: Lab Review 11/01/23 11/01/23 11/01/23 00:26 00:30 00:35 WBC 11.62 H RBC 2.59 L Hgb 7.6 L Hct 24.9 L MCV 96.1 MCH 29.3 MCHC 30.5 L RDW Coeff of Shaila 13.7 Plt Count 501 H Immature Gran % (Auto) 0.6 Neut % (Auto) 79.3 H Lymph % (Auto) 12.3 [place] % (Auto) 7.2 Eos % (Auto) 0.5 Baso % (Auto) 0.1 Neut # (Auto) 9.2 H Lymph # (Auto) 1.4 [place] # (Auto) 0.8 Eos # (Auto) 0.1 Baso # (Auto) 0.0 Immature Gran # (Auto) 0.1 PT 10.1 INR 0.97 APTT 24.1 Puncture Site Rr Base Excess 11.2 H O2 Saturation 95.6 ABG pH 7.47 H ABG pCO2 48.0 H ABG pO2 74.0 L ABG HCO3 34.9 H ABG Total CO2 36.4 H Mauro Test Pos Hemoglobin 1.3 Oxyhemoglobin 93.7 L Carboxyhemoglobin 2.3 H Total Hemoglobin 8.1 L O2 Delivery Device Cannula Oxygen Liter Flow 4.00 Sodium 133.9 L Potassium 3.20 L Chloride 94.7 L Carbon Dioxide 33.2 H Anion Gap 9.20 BUN 46.7 H D Creatinine 2.11 H D Estimated GFR (MDRD) 22.00 BUN/Creatinine Ratio 22.13 Glucose 106.4 H Calcium 8.53 Total Bilirubin 0.46 AST 49.8 H ALT 40.0 H Alkaline Phosphatase 82.0 D Total Protein 6.51 Albumin 3.53 Globulin 2.98 Albumin/Globulin Ratio 1.18 Influ A Molecular Assay Negative by naat Influ B Molecular Assay Negative by naat RSV Antigen Negative by naat SARS CoV-2 RNA Rapid JESUS Negative Orders Category Date Time Status ADMIT PATIENT INPATIENT .TO [facility] (MONITORED BED) ADMISSION 11/01/23 01:30 Completed ABG DRAW REQUEST Stat CARDIO 11/01/23 00:17 Completed ABG DRAW REQUEST Stat CARDIO 11/01/23 06:00 Completed EKG-(IP & OP ONLY) Stat CARDIO 11/01/23 06:00 Completed CATHETER INSERTION AND CARE Q8HR CARE 11/01/23 01:41 Completed REMINDER: Ask MD to jamey/tessa silver DAILY CARE 11/01/23 01:42 Completed TELEMETRY MONITORING TELE CARE 11/01/23 01:30 Completed ABG COOX Stat LAB 11/01/23 00:35 Completed ABG COOX Stat LAB 11/01/23 05:50 Completed CBC W/ AUTO DIFF Stat LAB 11/01/23 00:30 Completed CBC W/ AUTO DIFF Stat LAB 11/01/23 05:54 Completed CMP [COMPREHENSIVE METABOLIC PANEL] Routine LAB 11/01/23 05:54 Completed CMP [COMPREHENSIVE METABOLIC PANEL] Stat LAB 11/01/23 00:30 Completed COVID [SARS COV-2 RNA RAPID JESUS] Stat LAB 11/01/23 00:26 Completed FLU A/B MOLECULAR Stat LAB 11/01/23 00:26 Completed PARTIAL THROMBOPLASTIN TIME Stat LAB 11/01/23 00:30 Completed PT WITH INR Stat LAB 11/01/23 00:30 Completed RSV Stat LAB 11/01/23 00:26 Completed Acetaminophen Meds 11/01/23 00:19 Discontinued 1,000 mg in 100 ml IV ONCE Azithromycin Inj [Zithromax] 500 mg Meds 11/01/23 01:26 Discontinued 0.9 % Sodium Chloride [Sodium Chloride] 250 ml IV ONCE Bumetanide [Bumex] Meds 11/01/23 01:25 Discontinued 1 mg IVP ONCE ONE Ceftriaxone/D5w 1 gm Premix [Rocephin 1 gm/50 ml D5w] Meds 11/01/23 01:25 Discontinued 1 gm in 50 ml IV ONCE Fentanyl Citrate/Pf [Sublimaze] Meds 11/01/23 00:20 Discontinued 50 mcg IVP ONCE ONE Heparin Sodium,Porcine [Heparin] Meds 11/01/23 05:00 Discontinued 5,000 units SUBCUT Q8HR Ipratropium/Albuterol Neb [Duoneb] Meds 11/01/23 00:19 Discontinued 3 ml NEB ONCE ONE CXR [CHEST, 1V AP ONLY] Stat RADS 11/01/23 00:18 Completed Medications Discontinued Medications Generic Name Dose Route Start Last Admin Trade Name Brandy PRN Reason Stop Dose Admin Albuterol/Ipratropium 3 ml 11/01/23 00:19 11/01/23 00:51 Ipratropium/Albuterol Vial.Neb NEB 11/01/23 00:20 3 ml ONCE ONE Administration Bumetanide 1 mg 11/01/23 01:25 11/01/23 01:44 Bumetanide 1 Mg/4 Ml Vial IVP 11/01/23 01:26 1 mg ONCE ONE Administration Fentanyl Citrate 50 mcg 11/01/23 00:20 11/01/23 00:35 Fentanyl 50 Mcg/Ml Sdv IVP 11/01/23 00:21 50 mcg ONCE ONE Administration Fentanyl Citrate 50 mcg 11/01/23 11:58 11/03/23 22:32 Fentanyl 50 Mcg/Ml Sdv IVP 50 mcg Q2H PRN Administration Pain Heparin Sodium (Porcine) 5,000 units 11/01/23 05:00 11/01/23 05:19 Heparin Sodium,Porcine 5,000 Units/Ml Syringe SUBCUT 5,000 units Q8HR HOLLY Administration Acetaminophen 1,000 mg in 100 mls @ 400 mls/hr 11/01/23 00:19 11/01/23 00:34 Acetaminophen IV 11/01/23 00:33 400 mls/hr ONCE ONE Administration CEFTRIAXONE/D5W 1 GM PREMIX 1 gm in 50 mls @ 100 mls/hr 11/01/23 01:25 11/01/23 01:44 Rocephin 1 Gm/50 Ml D5w IV 11/01/23 01:54 100 mls/hr ONCE ONE Administration Azithromycin 500 mg/ Sodium 250 mls @ 250 mls/hr 11/01/23 01:26 11/01/23 01:49 Chloride IV 11/01/23 02:25 250 mls/hr ONCE ONE Administration Lorazepam 1 mg 11/01/23 07:57 11/01/23 08:01 Lorazepam Inj 2 Mg/Ml Vial IVP 11/01/23 07:58 1 mg ONCE STA Administration Lorazepam 2 mg 11/01/23 10:21 11/04/23 01:19 Lorazepam Inj 2 Mg/Ml Vial IVP 2 mg Q2H PRN Administration Anxiety Morphine Sulfate 2 mg 11/01/23 10:21 11/04/23 13:06 Morphine Sulfate 2 Mg/Ml Syringe IVP 2 mg Q2H PRN Administration Pain Ondansetron HCl 4 mg 11/01/23 12:51 11/01/23 13:05 Ondansetron Hcl/Pf 4 Mg/2 Ml Sdv IVP 4 mg Q6H PRN Administration Nausea / Vomiting Scopolamine HBr 1 patch 11/01/23 10:21 11/01/23 19:26 Scopolamine Hydrobromide 1.5 Mg Patch.Td72 TD 1 patch Q72H PRN Administration Secretions Sodium Chloride 1 syr 11/02/23 21:00 11/04/23 04:59 0.9% Sodium Chloride 10 Ml Disp.Syrin IVF 1 syr Q8HR HOLLY Administration Sodium Chloride 1 syr 11/03/23 17:59 0.9% Sodium Chloride 10 Ml Disp.Syrin IVF PRN PRN Maintain IV Patency Sodium Chloride 2 spray 11/03/23 18:44 Sodium Chloride 40 Ml Nasal [place] NESHA PRN PRN Dry Nasal [place] Vital Signs: Temp Pulse Resp BP Pulse Ox 11/01/23 00:10 97.8 F 75 18 128/56 L 100 Discharge Plan Discharge Patient Disposition: ADMITTED INPATIENT Discharge Problem: Acute kidney injury, Acute hypoxic respiratory failure Acute exacerbation of CHF (congestive heart failure) Qualifiers: Heart failure type: unspecified Qualified Code(s): I50.9 - Heart failure, unspecified Did you review [place] AGENCY DIRECTOR for ALL controlled substances?: Not Applicable ED Provider: ZEN THOMAS Condition: Fair Physician Progress Note: []
[2023-11-01 02:20] LABS: PARTIAL THROMBOPLASTIN TIME 24.1 SEC (23.9-40.0); PROTHROMBIN TIME 10.1 SEC (9.3-11.0)
[2023-11-01 03:05] VITALS: BMI 32.8
[2023-11-01] MEDS ORDERED: HEPARIN SUBCUT SCH (05:00)
[2023-11-01 05:58] LABS: ABG O2 HGB 94.2 % (95-100); ABG PH 7.45 (7.35-7.45); BEecf 11.4 (-2.0-3.0); COHb 2.3 (0.5-1.5); HCO3 35.4 (21-28); sO2 95.2 % (94-98); tHb 7.1 g/dl (11.7-17.4)
[2023-11-01 06:03] LABS: EOSINOPHILS # (AUTO) 0.1 K/ul (0.0-0.7); EOSINOPHILS % (AUTO) 0.6 % (0.0-7.0); HEMATOCRIT 23.8 % (37.0-47.0); HEMOGLOBIN 7.3 g/dl (12.0-16.0); IMMATURE GRANULOCYTE % (AUTO) 0.4 % (0.0-5.0); LYMPHOCYTES # (AUTO) 1.1 K/uL (0.60-3.4); LYMPHOCYTES % (AUTO) 10.3 (10.0-50.0); MEAN CORPUSCULAR HEMOGLOBIN 29.6 pg (27.0-31.0); MEAN CORPUSCULAR HGB CONC 30.7 (31.8-35.4); MEAN CORPUSCULAR VOLUME 96.4 fl (81.0-99.0); MONOCYTES # (AUTO) 0.8 K/uL (0.4-2.0); MONOCYTES % (AUTO) 7.8 (0-10); NEUTROPHILS # (AUTO) 8.5 K/ul (2.0-6.9); NEUTROPHILS % (AUTO) 80.9 % (42.2-75.2); PLATELET COUNT 453 10^3/uL (140-440); RDW COEFFICIENT OF VARIATION 13.7 % (11.6-14.8); RED BLOOD COUNT 2.47 10^6/ul (4.20-5.40)
[2023-11-01 06:23] LABS: ALANINE AMINOTRANSFERASE 34.5 U/L (0-35); ALBUMIN 3.14 g/dL (3.5-5.0); ALKALINE PHOSPHATASE 77.2 U/L (53-141); ASPARTATE AMINO TRANSFERASE 41.8 U/L (14-36); BILIRUBIN,TOTAL 0.19 mg/dL (0.2-1.3); BLOOD UREA NITROGEN 44.1 mg/dL (7-17); CALCIUM 8.18 mg/dL (8.4-10.2); CHLORIDE 95.3 mmol/L (98-107); CREATININE 2.28 mg/dL (0.60-1.30); GLUCOSE 91.6 mg/dL (74-106); SODIUM 133.7 mmol/L (134.5-145); TOTAL PROTEIN 5.86 g/dL (6.3-8.2)
[2023-11-01 06:24] LABS: POTASSIUM 3.25 mmol/L (3.5-5.1)
[2023-11-01] MEDS ORDERED: ATIVAN IVP STA ×2 (07:41→07:57)
[2023-11-01] MEDS ORDERED: TRANSDERM-SCOP 1.5 MG PATCH TD PRN (10:21)
[2023-11-01] MEDS: MORPHINE 2 MG/ML SYRINGE IVP PRN ×5 (10:52→23:14)
--- NOTE | 2023-11-01 11:25 | PCM ---
Date of Service Date Seen by Provider: 11/01/23 Time Seen by Provider: 08:30 Admit Day/Time Admission Date: 11/01/23 Admission Time: :30 Reason for Admission Chief Complaint: ACUTE HYPOXIC RESP. FAILURE Hospital Provider Hospital Provider: LINCOLN TOWNSEND, [facility] [place] Care Physician Primary Care Physician: JAIRON ROJAS History of Present Illness History of Present Illness: 87 yo female presented to the ER after multiple hospitalizations over the past month for shortness of breath. O2 sat was found to be the 70s. Patient states she told the residential she did not want anything done but they sent her in anyway. Chest x-ray showed persistent pneumonia. Admitted as inpatient. Patient told RN that she did not want any more lab draws or anything else to cause her pain. She does not wish to be on any medications to prolong her life. Spoke extensively with patient myself and requested waiting until her sisters arrived to the hospital to make further arrangements for hospice care. Gala CERVANTES and I spoke with all 3 sisters in room and requested to take the patient to her home on hospice. Requesting [facility] first and then attempt other companies if unable to take her. Patient has hospital bed at home but no mattress. Case Discussed With Case Discussed With: Patient's case was discussed with the ER Physicians, Dr. Mcmullen. [facility] Medical History TIA (transient ischemic attack) G45.9 - Transient cerebral ischemic attack, unspecified (ICD-10) FHx: cholecystectomy Z83.79 - Family history of other diseases of the digestive system (ICD-10) Cataract H26.9 - Unspecified cataract (ICD-10) Thyroid disease E07.9 - Disorder of thyroid, unspecified (ICD-10) Stroke I63.9 - Cerebral infarction, unspecified (ICD-10) Osteoarthritis M19.90 - Unspecified osteoarthritis, unspecified site (ICD-10) Obesity E66.9 - Obesity, unspecified (ICD-10) CHF (congestive heart failure) I50.9 - Heart failure, unspecified (ICD-10) Melanoma C43.9 - Malignant melanoma of skin, unspecified (ICD-10) Hyperlipidemia E78.5 - Hyperlipidemia, unspecified (ICD-10) ABDIRASHID (generalized anxiety disorder) F41.1 - Generalized anxiety disorder (ICD-10) Depressed F32.A - Depression, unspecified (ICD-10) Allergic rhinitis J30.9 - Allergic rhinitis, unspecified (ICD-10) Cervical radiculopathy M54.12 - Radiculopathy, cervical region (ICD-10) COPD (chronic obstructive pulmonary disease) J44.9 - Chronic obstructive pulmonary disease, unspecified (ICD-10) Afib I48.91 - Unspecified atrial fibrillation (ICD-10) Hypertension I10 - Essential (primary) hypertension (ICD-10) GERD (gastroesophageal reflux disease) K21.9 - Gastro-esophageal reflux disease without esophagitis (ICD-10) MARCELO (obstructive sleep apnea) G47.33 - Obstructive sleep apnea (adult) (pediatric) (ICD-10) Surgical History Status post cardiac catheterization Z98.890 - Other specified postprocedural states (ICD-10) 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) H/O total hysterectomy Z90.710 - Acquired absence of both cervix and uterus (ICD-10) Family History FATHER Heart disease Mother Heart disease Social History Smoking and tobacco status: Never smoker Alcohol intake: never Allergies Allergies Allergy/AdvReac Type Severity Reaction Status Date / Time escitalopram [From Lexapro] AdvReac Unknown Verified 11/01/23 01:06 SERTRALINE AdvReac Unknown Uncoded 11/01/23 01:06 Current Medications Home Medications albuterol sulfate 90 mcg/actuation aerosol inhaler 2 inh inhalation Q6H PRN shortness of breath or wheezing 09/30/23 [History Confirmed 11/01/23 Last Taken Unknown] amiodarone 200 mg tablet 200 mg PO BID 09/30/23 [History Confirmed 11/01/23 Last Taken 10/09/23 08:00] aspirin 81 mg chewable tablet 81 mg PO DAILY 09/30/23 [History Confirmed 11/01/23 Last Taken 10/09/23 08:00] atorvastatin 80 mg tablet 80 mg PO BEDTIME 09/30/23 [History Confirmed 11/01/23 Last Taken 10/09/23 08:00] buspirone 30 mg tablet 30 mg PO BID 09/30/23 [History Confirmed 11/01/23 Last Taken 10/09/23 08:00] cetirizine 10 mg tablet 10 mg PO DAILY allergy symptoms 09/30/23 [History Confirmed 11/01/23 Last Taken Unknown] cholecalciferol (vitamin D3) 50 mcg (2,000 unit) capsule 50 mcg PO DAILY 09/30/23 [History Confirmed 11/01/23 Last Taken 10/08/23 08:00] metoprolol succinate 50 mg tablet,extended release 24 hr 50 mg PO DAILY 09/30/23 [History Confirmed 11/01/23 Last Taken 10/09/23 08:00] multivitamin 1 tab PO DAILY 09/30/23 [History Confirmed 11/01/23 Last Taken 10/09/23 08:00] polyethylene glycol 3350 17 gram oral powder packet 17 g PO DAILY PRN constipation 09/30/23 [History Confirmed 11/01/23 Last Taken 10/08/23 09:00] vitamin B complex 1 tab PO DAILY 09/30/23 [History Confirmed 11/01/23 Last Taken 10/09/23 08:00] calcium 500 mg tablet 500 mg PO DAILY 10/05/23 [History Confirmed 11/01/23 Last Taken 10/09/23 08:00] sucralfate 1 gram tablet (Carafate) 1 g PO .achs 10/05/23 [History Confirmed 11/01/23 Last Taken 10/09/23 18:00] acetaminophen 325 mg capsule 650 mg PO Q6H PRN fever or pain 10/13/23 [History Confirmed 11/01/23 Last Taken Unknown] ipratropium 0.5 mg-albuterol 3 mg (2.5 mg base)/3 mL nebulization soln 3 ml inhalation Q4H PRN Shortness Of Breath Or Wheezing #30 mL 10/23/23 [Rx Confirmed 11/01/23 Last Taken Unknown] valsartan 40 mg tablet 40 mg PO DAILY #30 tabs 10/23/23 [Rx Confirmed 11/01/23 Last Taken Unknown] apixaban 5 mg tablet (Eliquis) 5 mg PO BID #30 tabs 10/30/23 [Rx Confirmed 11/01/23 Last Taken Unknown] cephalexin 500 mg capsule 500 mg PO BID #14 caps 10/30/23 [Rx Confirmed 11/01/23 Last Taken Unknown] furosemide 20 mg tablet (Lasix) 20 mg PO DAILY #30 tabs 10/30/23 [Rx Last Taken Unknown] hydrocodone 5 mg-acetaminophen 325 mg tablet 1 tab PO Q4-6H PRN pain #30 tabs 10/30/23 [Rx Last Taken Unknown] methylprednisolone 4 mg tablets in a dose pack (Medrol (Eze)) See Rx Instructions PO .COMPLEX #21 ea 10/30/23 [Rx Last Taken Unknown] nitroglycerin 0.4 mg sublingual tablet (Nitrostat) 0.4 mg sublingual Q5MIN X 3 DOSES PRN #30 tabs 10/30/23 [Rx Last Taken Unknown] sodium chloride 0.65 % nasal spray aerosol (Deep Sea Nasal) 2 spray intranasal PRN PRN #100 mL 10/30/23 [Rx Last Taken Unknown] Saccharomyces boulardii 250 mg capsule (Daily Probiotic (S. boulardii)) 250 mg PO DAILY 11/01/23 [History Confirmed 11/01/23 Last Taken Unknown] calcium carbonate-vitamin D3 500 mg (1,250 mg)-50 unit capsule 1 cap PO DAILY 11/01/23 [History Confirmed 11/01/23 Last Taken Unknown] cilostazol 50 mg tablet 50 mg PO BID 11/01/23 [History Confirmed 11/01/23 Last Taken Unknown] lorazepam 0.5 mg tablet 0.25 mg PO BEDTIME insomnia 11/01/23 [History Confirmed 11/01/23 Last Taken Unknown] pantoprazole 40 mg tablet,delayed release (Protonix) 40 mg PO QAM 11/01/23 [History Confirmed 11/01/23 Last Taken Unknown] Home Lorazepam (Lorazepam Inj 2 Mg/Ml Vial) 2 mg IVP Q2H PRN PRN Reason: Anxiety Morphine Sulfate (Morphine Sulfate 2 Mg/Ml Syringe) 2 mg IVP Q2H PRN PRN Reason: Pain Last Admin: 11/01/23 10:52 Dose: 2 mg Scopolamine HBr (Scopolamine Hydrobromide 1.5 Mg Patch.Td72) 1 patch TD Q72H PRN PRN Reason: Secretions Discontinued Medications Albuterol/Ipratropium (Ipratropium/Albuterol Vial.Neb) 3 ml NEB ONCE ONE Stop: 11/01/23 00:20 Last Admin: 11/01/23 00:51 Dose: 3 ml Bumetanide (Bumetanide 1 Mg/4 Ml Vial) 1 mg IVP ONCE ONE Stop: 11/01/23 01:26 Last Admin: 11/01/23 01:44 Dose: 1 mg Fentanyl Citrate (Fentanyl 50 Mcg/Ml Sdv) 50 mcg IVP ONCE ONE Stop: 11/01/23 00:21 Last Admin: 11/01/23 00:35 Dose: 50 mcg Heparin Sodium (Porcine) (Heparin Sodium,Porcine 5,000 Units/Ml Syringe) 5,000 units SUBCUT Q8HR HOLLY Last Admin: 11/01/23 05:19 Dose: 5,000 units Acetaminophen (Acetaminophen) 1,000 mg in 100 mls @ 400 mls/hr IV ONCE ONE Stop: 11/01/23 00:33 Last Admin: 11/01/23 00:34 Dose: 400 mls/hr CEFTRIAXONE/D5W 1 GM PREMIX (Rocephin 1 Gm/50 Ml D5w) 1 gm in 50 mls @ 100 mls/hr IV ONCE ONE Stop: 11/01/23 01:54 Last Admin: 11/01/23 01:44 Dose: 100 mls/hr Azithromycin 500 mg/ Sodium (Chloride) 250 mls @ 250 mls/hr IV ONCE ONE Stop: 11/01/23 02:25 Last Admin: 11/01/23 01:49 Dose: 250 mls/hr Lorazepam (Lorazepam Inj 2 Mg/Ml Vial) 1 mg IVP ONCE STA Stop: 11/01/23 07:58 Last Admin: 11/01/23 08:01 Dose: 1 mg Opioid Naive vs. Tolerant Does Patient Take Opioids?: No Is Patient Opioid Naive?: Yes What is Opioid Naive?: *Opioid Naive implies the patient is not already taking opioids or not chronically receiving opioids on a daily basis. *PRN dosing is not "usually" associated with tolerance. *Patients are at higher risk of over-sedation and aspiration. Is Patient Opioid Tolerant?: No What is Opioid Tolerant?: *Opioid Tolerance implies less than the expected response to an opioid. *Acquired tolerance is defined by the patient taking 60mg of oral morphine daily (or equianalgesic dose of another opioid) for 1 week or more. *Often associated with chronic pain. *May take more than usual dose to achieve desired pain control. Review of Systems Constitutional: Reports No symptoms Head: Reports Normocephalic Eyes: Reports No symptoms Ears: Reports No symptoms Nose: Reports No symptoms Mouth: Reports No symptoms Throat: Reports No symptoms Cardiovascular: Reports No symptoms Respiratory: Reports Shortness of air Gastrointestinal: Reports No symptoms Genitourinary: Reports No Symptoms Musculoskeletal: Reports No symptoms Endocrine: Reports No symptoms Hematology: Reports No symptoms Immunology: Reports No symptoms Neurological: Reports No symptoms Psychiatric: Reports No symptoms Physical examination Most Recent Vital Signs: Most Recent Vital Signs Temperature 97.9 F 11/01/23 05:52 Temperature Source Temporal Artery Scan 11/01/23 05:52 Temperature Source Infrared 11/01/23 00:10 Pulse Rate 73 11/01/23 05:52 Respiratory Rate 20 11/01/23 08:00 Blood Pressure 105/50 L 11/01/23 05:52 Blood Pressure Mean 68 11/01/23 05:52 Blood Pressure Left Arm 117/58 11/01/23 02:18 Blood Pressure Location Left Arm 11/01/23 05:52 Blood Pressure Position Supine 11/01/23 05:52 O2 Sat by Pulse Oximetry 94 L 11/01/23 10:00 Oxygen Delivery Method Nasal Cannula 11/01/23 10:00 Oxygen Flow Rate 4 11/01/23 10:00 Fraction of Inspired Oxygen (FIO2) 3 11/01/23 08:00 Height 5 ft 6 in 11/01/23 02:18 Weight 203 lb 9 oz 11/01/23 02:18 Telemetry Type Remote Telemetry 11/01/23 07:00 Telemetry Monitoring Continues 11/01/23 07:00 Telemetry Heart Rate 72 11/01/23 07:00 Telemetry SPO2 93 11/01/23 07:00 EKG PA Interval 0.16 11/01/23 07:00 EKG QRS Interval 0.07 11/01/23 07:00 Telemetry Strip Reading SR 11/01/23 07:00 Appearance: Positive Alert and Oriented x3 and Ill-Appearing Skin: Positive Warm HEENT: Positive Normocephalic and PERRLA Neck: Positive Supple and Midline Trachea Chest/Lungs: Positive Symmetrical With Equal Breath Sounds, Rhonci and Other (coarse, crackles) Heart: Positive RRR and Pulses Normal GI/: Positive Soft, Nontender, Bowel Sounds Normal and No Distention Musculoskeletal: Positive Not Examined Extremities: Positive Intact Peripheral Pulses and Stable Joints Without Laxity Neurological: Positive Sensation Intact, Motor intact, Reflexes Intact, Alert and Oriented Labs This Visit Labs This Visit: Labs This Visit 11/01/23 11/01/23 11/01/23 00:26 00:30 00:35 WBC 11.62 H RBC 2.59 L Hgb 7.6 L Hct 24.9 L MCV 96.1 MCH 29.3 MCHC 30.5 L RDW Coeff of Shaila 13.7 Plt Count 501 H Immature Gran % (Auto) 0.6 Neut % (Auto) 79.3 H Lymph % (Auto) 12.3 [place] % (Auto) 7.2 Eos % (Auto) 0.5 Baso % (Auto) 0.1 Neut # (Auto) 9.2 H Lymph # (Auto) 1.4 [place] # (Auto) 0.8 Eos # (Auto) 0.1 Baso # (Auto) 0.0 Immature Gran # (Auto) 0.1 PT 10.1 INR 0.97 APTT 24.1 Puncture Site Rr Base Excess 11.2 H O2 Saturation 95.6 ABG pH 7.47 H ABG pCO2 48.0 H ABG pO2 74.0 L ABG HCO3 34.9 H ABG Total CO2 36.4 H Mauro Test Pos Hemoglobin 1.3 Oxyhemoglobin 93.7 L Carboxyhemoglobin 2.3 H Total Hemoglobin 8.1 L O2 Delivery Device Cannula Oxygen Liter Flow 4.00 Sodium 133.9 L Potassium 3.20 L Chloride 94.7 L Carbon Dioxide 33.2 H Anion Gap 9.20 BUN 46.7 H D Creatinine 2.11 H D Estimated GFR (MDRD) 22.00 BUN/Creatinine Ratio 22.13 Glucose 106.4 H Calcium 8.53 Total Bilirubin 0.46 AST 49.8 H ALT 40.0 H Alkaline Phosphatase 82.0 D Total Protein 6.51 Albumin 3.53 Globulin 2.98 Albumin/Globulin Ratio 1.18 Influ A Molecular Assay Negative by naat Influ B Molecular Assay Negative by naat RSV Antigen Negative by naat SARS CoV-2 RNA Rapid JESUS Negative 11/01/23 11/01/23 05:50 05:54 WBC 10.50 H RBC 2.47 L Hgb 7.3 L Hct 23.8 L MCV 96.4 MCH 29.6 MCHC 30.7 L RDW Coeff of Shaila 13.7 Plt Count 453 H Immature Gran % (Auto) 0.4 Neut % (Auto) 80.9 H Lymph % (Auto) 10.3 [place] % (Auto) 7.8 Eos % (Auto) 0.6 Baso % (Auto) 0.0 Neut # (Auto) 8.5 H Lymph # (Auto) 1.1 [place] # (Auto) 0.8 Eos # (Auto) 0.1 Baso # (Auto) 0.0 Immature Gran # (Auto) 0.0 PT INR APTT Puncture Site Rr Base Excess 11.4 H O2 Saturation 95.2 ABG pH 7.45 ABG pCO2 51.0 H ABG pO2 73.0 L ABG HCO3 35.4 H ABG Total CO2 37.0 H Mauro Test Pos Hemoglobin 1.0 Oxyhemoglobin 94.2 L Carboxyhemoglobin 2.3 H Total Hemoglobin 7.1 L O2 Delivery Device Cannula Oxygen Liter Flow 4.00 Sodium 133.7 L Potassium 3.25 L Chloride 95.3 L Carbon Dioxide 33.0 H Anion Gap 8.65 BUN 44.1 H Creatinine 2.28 H Estimated GFR (MDRD) 20.00 BUN/Creatinine Ratio 19.34 Glucose 91.6 Calcium 8.18 L Total Bilirubin 0.19 L AST 41.8 H ALT 34.5 Alkaline Phosphatase 77.2 Total Protein 5.86 L Albumin 3.14 L Globulin 2.72 Albumin/Globulin Ratio 1.15 Influ A Molecular Assay Influ B Molecular Assay RSV Antigen SARS CoV-2 RNA Rapid JESUS Imaging Imaging: EXAM: CHEST ONE-VIEW History: Hypoxia FINDINGS: Compared with 10/28/2023. Normal cardiomediastinal contours. Bilateral lung infiltrates stable from CT 10/29/2023. Consolidative change of the medial right midlung, stable. Bronchiectasis and bronchial wall thickening in the bases. A small right pleural fluid, stable. No acute chest wall abnormality. Impression: Stable from chest CT 10/29/2023 Bilateral multilobar infiltrates with right midlung consolidative change Bronchiectasis and bronchial wall thickening in the bases Review Statement Review Statement: I have independently reviewed and interpreted the labs/EKGs/imaging that were ordered by the ER provider. I have reviewed all outside records that are available currently in our EMR including imaging/notes/labs from previous visits. Plan Plan: 1. Palliative/Comfort Care - due to multiple hospitalizations, recurrent infections of pneumonia, [place], CVA, GI bleed, and PE over the last month, she has no desire to live due to loss of her less than a year ago, requires assistance with all ADLs, and has continued to physically and functionally decline; hospice consulted and is able to screen patient on Thursday, morphine 2 mg Q2H prn, ativan 2 mg Q2H prn, scopolamine patch Q72H prn 2. Hypoxic Respiratory Failure 3. Pneumonia 4. Pulmonary Embolism 5. UTI d/t E. Coli 6. CHF exacerbation 7. BRENDA Patient does not wish to further undergo treatment of above conditions. DVT Prophylaxis: None per patient wishes Time Spent: Greater than 80 minutes spent with patient, 50% of the time spent with this patient was devoted to counseling and coordination of care. [facility] minutes spent discussing advance care planning. Disposition: Admit to: Med/Surg Inpatient Discussed Plan of Care with Dr. Sam Rubio DNR Medications Medication Orders: Medications Ordered Category Date Time Status Lorazepam [Ativan] Meds 11/01/23 10:21 Active 2 mg IVP Q2H PRN Morphine Sulfate [Morphine 2 mg/ml Syringe] Meds 11/01/23 10:21 Active 2 mg IVP Q2H PRN Scopolamine Hydrobromide [Transderm-Scop 1.5 mg Patch] Meds 11/01/23 10:21 Active 1 patch TD Q72H PRN
[2023-11-01] MEDS: SUBLIMAZE IVP PRN ×3 (12:04→19:20)
[2023-11-01] MEDS ORDERED: ZOFRAN 4 MG/2 ML IVP PRN (12:51)
[2023-11-01] MEDS ORDERED: ZOFRAN 4 MG/2 ML ONE (13:01)
[2023-11-02] MEDS: MORPHINE 2 MG/ML SYRINGE IVP PRN ×2 (02:05→23:06)
[2023-11-02] MEDS: ATIVAN IVP PRN ×2 (07:49→10:25)
--- NOTE | 2023-11-02 10:47 | PCM.PROG ---
Date/Time Seen Date Seen by Provider: 11/02/23 Time Seen by Provider: 08:45 Provider Provider: CORDELL MILNER PA-C, [facility] Chief Complaint Chief Complaint: ACUTE HYPOXIC RESP. FAILURE Subjective Subjective: Patient resting, appears comfortable. Just received ativan 2 mg as she was moaning in discomfort this morning. Her youngest sister at bedside. Awaiting hospice availability. Objective Appearance: Positive No Apparent Distress Chest/Lungs: Positive Symmetrical With Equal Breath Sounds, Clear to Auscultation Bilaterally and Good Air Movement all 4 Lung [place]: Positive RRR and Pulses Normal GI/: Positive Soft, Nontender, Bowel Sounds Normal and No Distention Musculoskeletal: Positive Not Examined Neurological: Positive Other (+generalized weakness, resting soundly, did not interrupt to evaluate mental status ) Additional Findings: Trace edema bilaterally Vital Signs Vital Signs: Vital Signs: Last 24 Hours 11/01/23 13:00 11/01/23 14:00 11/01/23 14:00 Temperature 98.6 F Temperature Source Temporal Artery Scan Pulse Rate 74 Respiratory Rate 16 Blood Pressure 83/46 L Blood Pressure Mean 58 Blood Pressure Location Left Radial Artery Blood Pressure Position O2 Sat by Pulse Oximetry 90 L Oxygen Delivery Method Nasal Cannula Nasal Cannula Oxygen Flow Rate 3 4 Fraction of Inspired Oxygen (FIO2) Telemetry Type Remote Telemetry Telemetry Monitoring Continues Telemetry Heart Rate 76 Telemetry SPO2 93 EKG ND Interval 0.19 EKG QRS Interval 0.08 Telemetry Strip Reading SR 11/01/23 18:00 11/01/23 19:00 11/01/23 19:59 Temperature Temperature Source Pulse Rate Respiratory Rate Blood Pressure Blood Pressure Mean Blood Pressure Location Blood Pressure Position O2 Sat by Pulse Oximetry 90 L Oxygen Delivery Method Vapo Therm Nasal Cannula Oxygen Flow Rate Fraction of Inspired Oxygen (FIO2) 50 4 Telemetry Type Remote Telemetry Telemetry Monitoring Continues Telemetry Heart Rate 113 H Telemetry SPO2 EKG ND Interval EKG QRS Interval 0.09 Telemetry Strip Reading A FIB 11/01/23 20:11 11/01/23 21:17 11/02/23 01:00 Temperature 97.2 F L Temperature Source Temporal Artery Scan Pulse Rate 89 Respiratory Rate 12 Blood Pressure 129/49 L Blood Pressure Mean 75 Blood Pressure Location Right Arm Blood Pressure Position Supine O2 Sat by Pulse Oximetry 86 L 91 L Oxygen Delivery Method Nasal Cannula Nasal Cannula Oxygen Flow Rate 4 3 Fraction of Inspired Oxygen (FIO2) Telemetry Type Remote Telemetry Telemetry Monitoring Continues Telemetry Heart Rate 84 Telemetry SPO2 88 L EKG ND Interval 0.17 EKG QRS Interval 0.07 Telemetry Strip Reading SR 11/02/23 05:13 11/02/23 05:53 11/02/23 07:00 Temperature Temperature Source Pulse Rate 80 Respiratory Rate Blood Pressure Blood Pressure Mean Blood Pressure Location Blood Pressure Position O2 Sat by Pulse Oximetry 90 L 94 L Oxygen Delivery Method Nasal Cannula Room Air Oxygen Flow Rate 4 Fraction of Inspired Oxygen (FIO2) Telemetry Type Remote Telemetry Telemetry Monitoring Continues Telemetry Heart Rate 78 Telemetry SPO2 95 EKG ND Interval 0.20 EKG QRS Interval 0.10 Telemetry Strip Reading SR with PVC 11/02/23 08:00 Temperature Temperature Source Pulse Rate Respiratory Rate Blood Pressure Blood Pressure Mean Blood Pressure Location Blood Pressure Position O2 Sat by Pulse Oximetry Oxygen Delivery Method Nasal Cannula Oxygen Flow Rate Fraction of Inspired Oxygen (FIO2) 4 Telemetry Type Telemetry Monitoring Telemetry Heart Rate Telemetry SPO2 EKG ND Interval EKG QRS Interval Telemetry Strip Reading Lab Results Lab Results: Lab Results: Last 24 Hours 10/22/23 05:04 WBC 8.94 RBC 2.80 L Hgb 8.6 L Hct 27.0 L MCV 96.4 MCH 30.7 MCHC 31.9 RDW Coeff of Shaila 12.9 Plt Count 361 Immature Gran % (Auto) 0.3 Neut % (Auto) 73.7 Lymph % (Auto) 13.4 [place] % (Auto) 9.6 Eos % (Auto) 2.7 Baso % (Auto) 0.3 Neut # (Auto) 6.6 Lymph # (Auto) 1.2 [place] # (Auto) 0.9 Eos # (Auto) 0.2 Baso # (Auto) 0.0 Immature Gran # (Auto) 0.0 Sodium 134.1 L Potassium 3.72 Chloride 100.6 Carbon Dioxide 28.2 Anion Gap 9.02 BUN 8.7 Creatinine 0.55 L Estimated GFR (MDRD) 104.00 BUN/Creatinine Ratio 15.81 Glucose 109.6 H Calcium 8.29 L Total Bilirubin 0.55 AST 27.5 ALT 19.0 Alkaline Phosphatase 88.8 Total Protein 6.25 L Albumin 3.28 L Globulin 2.97 Albumin/Globulin Ratio 1.10 Additional Comments Additional Comments: I have independently reviewed and interpreted the labs/EKGs/imaging ordered during this hospital stay. I have reviewed outside records that are available in our EMR that pertain to medical stay including imaging/notes/labs from previous visits. Active Medications Active Medications: Medications Generic Name Dose Route Start Last Admin Trade Name Freq PRN Reason Stop Dose Admin Fentanyl Citrate 50 mcg 11/01/23 11:58 11/01/23 19:20 Fentanyl 50 Mcg/Ml Sdv IVP 50 mcg Q2H PRN Administration Pain Lorazepam 2 mg 11/01/23 10:21 11/02/23 10:25 Lorazepam Inj 2 Mg/Ml Vial IVP 2 mg Q2H PRN Administration Anxiety Morphine Sulfate 2 mg 11/01/23 10:21 11/02/23 02:05 Morphine Sulfate 2 Mg/Ml Syringe IVP 2 mg Q2H PRN Administration Pain Ondansetron HCl 4 mg 11/01/23 12:51 11/01/23 13:05 Ondansetron Hcl/Pf 4 Mg/2 Ml Sdv IVP 4 mg Q6H PRN Administration Nausea / Vomiting Scopolamine HBr 1 patch 11/01/23 10:21 11/01/23 19:26 Scopolamine Hydrobromide 1.5 Mg Patch.Td72 TD 1 patch Q72H PRN Administration Secretions Plan Plan: 1. Palliative/Comfort Care - due to multiple hospitalizations, recurrent infections of pneumonia, [place], CVA, GI bleed, and PE over the last month, she has no desire to live due to loss of her less than a year ago, requires assistance with all ADLs, and has continued to physically and functionally decline; hospice consulted and is able to screen patient on Thursday, morphine 2 mg Q2H prn, ativan 2 mg Q2H prn, scopolamine patch Q72H prn 2. Hypoxic Respiratory Failure 3. Pneumonia 4. Pulmonary Embolism 5. UTI d/t E. Coli 6. CHF exacerbation 7. BRENDA Patient does not wish to further undergo treatment of above conditions. DVT Prophylaxis: None per patient wishes Dispo: Patient's family and case management discussed home vs inpatient. Pt would likely meet for inpatient hospice given her requirement of IV medications, hypoxia with any movement of the patient, etc. They would like to consult hospice with goal of inpatient. Review Statement Review Statement: I have personally discussed and reviewed the patient's visit/currently labs/imaging/decision making with Dr. Rubio, my supervising attending. Greater that 50 minutes spent with patient, 50% of the time spent with this patient was devoted to counseling and coordination of care.
[2023-11-03] MEDS: MORPHINE 2 MG/ML SYRINGE IVP PRN ×6 (06:00→21:10)
[2023-11-03] MEDS: ATIVAN IVP PRN (07:30)
--- NOTE | 2023-11-03 10:46 | PCM.PROG ---
Date/Time Seen Date Seen by Provider: 11/03/23 Time Seen by Provider: 08:40 Provider Provider: CORDELL MILNER PA-C, [facility] Chief Complaint Chief Complaint: ACUTE HYPOXIC RESP. FAILURE Subjective Subjective: Patient still requiring IV pain/anxiety medications to remain comfortable. She states she's having a headache today and her shoulder blades hurt. Denies other complaints. Awaiting hospice consult today. Objective Appearance: Positive No Apparent Distress Chest/Lungs: Positive Symmetrical With Equal Breath Sounds, Clear to Auscultation Bilaterally and Good Air Movement all 4 Lung [place]: Positive RRR and Pulses Normal GI/: Positive Soft, Nontender, Bowel Sounds Normal and No Distention Musculoskeletal: Positive Not Examined Neurological: Positive Other (+generalized weakness. Lethargic. ) Additional Findings: Trace edema bilaterally Vital Signs Vital Signs: Vital Signs: Last 24 Hours 11/02/23 13:00 11/02/23 13:25 11/02/23 19:00 Pulse Rate Respiratory Rate O2 Sat by Pulse Oximetry 90 L Oxygen Delivery Method Nasal Cannula Oxygen Flow Rate 4 Fraction of Inspired Oxygen (FIO2) Telemetry Type Remote Telemetry Remote Telemetry Telemetry Monitoring Continues Continues Telemetry Heart Rate 76 82 Telemetry SPO2 91 L 89 L EKG ND Interval 0.21 H 0.25 H EKG QRS Interval 0.07 0.07 Telemetry Strip Reading SR SR WITH 1ST DEGREE AVB 11/02/23 19:41 11/02/23 20:13 11/03/23 01:00 Pulse Rate Respiratory Rate O2 Sat by Pulse Oximetry 87 L Oxygen Delivery Method Nasal Cannula Nasal Cannula Oxygen Flow Rate 4 Fraction of Inspired Oxygen (FIO2) 4 Telemetry Type Remote Telemetry Telemetry Monitoring Continues Telemetry Heart Rate 78 Telemetry SPO2 92 L EKG ND Interval 0.22 H EKG QRS Interval 0.08 Telemetry Strip Reading SR WITH 1ST DEGREE AVB 11/03/23 05:27 11/03/23 06:00 11/03/23 07:00 Pulse Rate 77 Respiratory Rate 16 O2 Sat by Pulse Oximetry 91 L 91 L Oxygen Delivery Method Room Air Nasal Cannula Oxygen Flow Rate Fraction of Inspired Oxygen (FIO2) Telemetry Type Remote Telemetry Telemetry Monitoring Continues Telemetry Heart Rate 79 Telemetry SPO2 92 L EKG ND Interval 0.20 EKG QRS Interval 0.08 Telemetry Strip Reading SR with PVC 11/03/23 07:30 Pulse Rate Respiratory Rate O2 Sat by Pulse Oximetry Oxygen Delivery Method Nasal Cannula Oxygen Flow Rate Fraction of Inspired Oxygen (FIO2) 4 Telemetry Type Telemetry Monitoring Telemetry Heart Rate Telemetry SPO2 EKG ND Interval EKG QRS Interval Telemetry Strip Reading Lab Results Lab Results: Lab Results: Last 24 Hours 10/22/23 05:04 WBC 8.94 RBC 2.80 L Hgb 8.6 L Hct 27.0 L MCV 96.4 MCH 30.7 MCHC 31.9 RDW Coeff of Shaila 12.9 Plt Count 361 Immature Gran % (Auto) 0.3 Neut % (Auto) 73.7 Lymph % (Auto) 13.4 [place] % (Auto) 9.6 Eos % (Auto) 2.7 Baso % (Auto) 0.3 Neut # (Auto) 6.6 Lymph # (Auto) 1.2 [place] # (Auto) 0.9 Eos # (Auto) 0.2 Baso # (Auto) 0.0 Immature Gran # (Auto) 0.0 Sodium 134.1 L Potassium 3.72 Chloride 100.6 Carbon Dioxide 28.2 Anion Gap 9.02 BUN 8.7 Creatinine 0.55 L Estimated GFR (MDRD) 104.00 BUN/Creatinine Ratio 15.81 Glucose 109.6 H Calcium 8.29 L Total Bilirubin 0.55 AST 27.5 ALT 19.0 Alkaline Phosphatase 88.8 Total Protein 6.25 L Albumin 3.28 L Globulin 2.97 Albumin/Globulin Ratio 1.10 Additional Comments Additional Comments: I have independently reviewed and interpreted the labs/EKGs/imaging ordered during this hospital stay. I have reviewed outside records that are available in our EMR that pertain to medical stay including imaging/notes/labs from previous visits. Active Medications Active Medications: Medications Generic Name Dose Route Start Last Admin Trade Name Freq PRN Reason Stop Dose Admin Fentanyl Citrate 50 mcg 11/01/23 11:58 11/01/23 19:20 Fentanyl 50 Mcg/Ml Sdv IVP 50 mcg Q2H PRN Administration Pain Lorazepam 2 mg 11/01/23 10:21 11/03/23 07:30 Lorazepam Inj 2 Mg/Ml Vial IVP 2 mg Q2H PRN Administration Anxiety Morphine Sulfate 2 mg 11/01/23 10:21 11/03/23 09:20 Morphine Sulfate 2 Mg/Ml Syringe IVP 2 mg Q2H PRN Administration Pain Ondansetron HCl 4 mg 11/01/23 12:51 11/01/23 13:05 Ondansetron Hcl/Pf 4 Mg/2 Ml Sdv IVP 4 mg Q6H PRN Administration Nausea / Vomiting Scopolamine HBr 1 patch 11/01/23 10:21 11/01/23 19:26 Scopolamine Hydrobromide 1.5 Mg Patch.Td72 TD 1 patch Q72H PRN Administration Secretions Sodium Chloride 1 syr 11/02/23 21:00 11/03/23 07:34 0.9% Sodium Chloride 10 Ml Disp.Syrin IVF 1 syr Q8HR HOLLY Administration Plan Plan: 1. Palliative/Comfort Care - due to multiple hospitalizations, recurrent infections of pneumonia, VT, CVA, GI bleed, and PE over the last month, she has no desire to live due to loss of her less than a year ago, requires a ssistance with all ADLs, and has continued to physically and functionally decline; hospice consulted - coming today, morphine 2 mg Q2H prn, ativan 2 mg Q2H prn, scopolamine patch Q72H prn 2. Hypoxic Respiratory Failure 3. Pneumonia 4. Pulmonary Embolism 5. UTI d/t E. Coli 6. CHF exacerbation 7. BRENDA Patient does not wish to further undergo treatment of above conditions. DVT Prophylaxis: None per patient wishes Dispo: Patient's family and case management discussed home vs inpatient. Pt would likely meet for inpatient hospice given her requirement of IV medications, hypoxia with any movement of the patient, etc. They would like to consult hospice with goal of inpatient. Review Statement Review Statement: I have personally discussed and reviewed the patient's visit/currently labs/imaging/decision making with Dr. Rubio, my supervising attending. Greater that 50 minutes spent with patient, 50% of the time spent with this patient was devoted to counseling and coordination of care.
[2023-11-03 14:26] VITALS: TEMP 98.3
[2023-11-03] MEDS ORDERED: OCEAN NASAL SPRAY NAS PRN (18:44)
[2023-11-03 21:52] VITALS: BP 147/69
[2023-11-03] MEDS: SUBLIMAZE IVP PRN (22:32)
[2023-11-04] MEDS: MORPHINE 2 MG/ML SYRINGE IVP PRN ×4 (00:44→13:06)
[2023-11-04] MEDS: ATIVAN IVP PRN (01:19)
[2023-11-04 09:29] VITALS: PULSE 80; RESP 18
--- NOTE | 2023-11-04 13:19 | DCSUM ---
Admission Date Admission Date: 11/01/23 Discharge Date Discharge Date: 11/04/23 Admission Diagnosis Admission Diagnosis: 1. Palliative/Comfort Care 2. Hypoxic Respiratory Failure 3. Pneumonia 4. Pulmonary Embolism 5. UTI d/t E. Coli 6. CHF exacerbation 7. BRENDA Discharge Diagnosis Discharge Diagnosis: 1. Palliative/Comfort Care 2. Hypoxic Respiratory Failure 3. Pneumonia 4. Pulmonary Embolism 5. UTI d/t E. Coli 6. CHF exacerbation 7. BRENDA Hospital Provider Hospital Provider: CORDELL MILNER PA-C, [facility] Primary Care Physician Primary Care Physician: JAIRON ROJAS Summary of History and Physical Summary of History and Physical: 87 yo female presented to the ER after multiple hospitalizations over the past month for shortness of breath. O2 sat was found to be the 70s. Patient [facility] not [facility] but they sent her in anyway. Chest x-ray showed persistent pneumonia. Admitted as inpatient. Patient told RN that she did not want any more lab draws or anything else to cause her pain. She does not wish to be on any medications to prolong her life. Spoke extensively with patient myself and requested waiting until her sisters arrived to the hospital to make further arrangements for hospice care. Gala CERVANTES and I spoke with all 3 sisters in room and requested to take the patient to her home on hospice. Requesting [facility] first and then attempt other companies if unable to take her. Patient has hospital bed at home but no mattress. Hospital Course Subjective: Patient received morphine, fentanyl, and ativan prn per patient and family wishes to keep her comfortable. Hospice evaluated patient on Thursday and did not feel she met criteria for GIP. They reevaluated on Thursday and agree with admission to [facility]. She will change status to hospice inpatient today. Family at bedside. Appearance: No Apparent Distress and Other (lethargic) HEENT: MMM CVS: No Murmur Abdomen: Soft, Non-Tender and No Distention Respiratory: Other (+sob ) Extremities: Other (+edema ) Vital Signs: Most Recent Vital Signs Temperature 98.3 F 11/03/23 21:51 Temperature Source Oral 11/03/23 21:51 Temperature Source Infrared 11/01/23 00:10 Pulse Rate 80 11/04/23 08:00 Respiratory Rate 18 11/04/23 08:00 Blood Pressure 147/69 H 11/03/23 21:51 Blood Pressure Mean 95 11/03/23 21:51 Blood Pressure Left Arm 117/58 11/01/23 02:18 Blood Pressure Location Right Arm 11/03/23 21:51 Blood Pressure Position Supine 11/03/23 21:51 O2 Sat by Pulse Oximetry 86 L 11/03/23 21:51 Oxygen Delivery Method Nasal Cannula 11/04/23 10:00 Oxygen Flow Rate 5 11/04/23 10:00 Fraction of Inspired Oxygen (FIO2) 4 11/04/23 08:00 Height 5 ft 6 in 11/01/23 02:18 Weight 203 lb 9 oz 11/01/23 02:18 Telemetry Type Remote Telemetry 11/04/23 12:57 Telemetry Monitoring Continues 11/04/23 12:57 Telemetry Heart Rate 83 11/04/23 12:57 Telemetry SPO2 91 L 11/04/23 12:57 EKG ME Interval 0.14 11/04/23 12:57 EKG QRS Interval 0.07 11/04/23 12:57 Telemetry Strip Reading SR 11/04/23 12:57 Discharge Instructions Discharge Planning: Discharge Planning > [address] Bernardo Rubio. Discharge Medications: Medications at Discharge (Home Meds & RX) albuterol sulfate 90 mcg/actuation aerosol inhaler 2 inh inhalation Q6H PRN shortness of breath or wheezing 09/30/23 amiodarone 200 mg tablet 200 mg PO BID 09/30/23 aspirin 81 mg chewable tablet 81 mg PO DAILY 09/30/23 atorvastatin 80 mg tablet 80 mg PO BEDTIME 09/30/23 buspirone 30 mg tablet 30 mg PO BID 09/30/23 cetirizine 10 mg tablet 10 mg PO DAILY allergy symptoms 09/30/23 cholecalciferol (vitamin D3) 50 mcg (2,000 unit) capsule 50 mcg PO DAILY 09/30/23 metoprolol succinate 50 mg tablet,extended release 24 hr 50 mg PO DAILY 09/30/23 multivitamin 1 tab PO DAILY 09/30/23 polyethylene glycol 3350 17 gram oral powder packet 17 g PO DAILY PRN constipation 09/30/23 vitamin B complex 1 tab PO DAILY 09/30/23 calcium 500 mg tablet 500 mg PO DAILY 10/05/23 sucralfate 1 gram tablet (Carafate) 1 g PO .achs 12/11/23 acetaminophen 325 mg capsule 650 mg PO Q6H PRN fever or pain 10/13/23 ipratropium 0.5 mg-albuterol 3 mg (2.5 mg base)/3 mL nebulization soln 3 ml inhalation Q4H PRN Shortness Of Breath Or Wheezing #30 mL 10/23/23 valsartan 40 mg tablet 40 mg PO DAILY #30 tabs 10/23/23 apixaban 5 mg tablet (Eliquis) 5 mg PO BID #30 tabs 10/30/23 cephalexin 500 mg capsule 500 mg PO BID #14 caps 10/30/23 furosemide 20 mg tablet (Lasix) 20 mg PO DAILY #30 tabs 10/30/23 hydrocodone 5 mg-acetaminophen 325 mg tablet 1 tab PO Q4-6H PRN pain #30 tabs 10/30/23 methylprednisolone 4 mg tablets in a dose pack ([employer] Systemsrol (Eze)) See Rx Instructions PO .COMPLEX #21 ea 10/30/23 nitroglycerin 0.4 mg sublingual tablet (Nitrostat) 0.4 mg sublingual Q5MIN X 3 DOSES PRN #30 tabs 10/30/23 sodium chloride 0.65 % nasal spray aerosol ([place] Nasal) 2 spray intranasal PRN PRN #100 mL 10/30/23 Saccharomyces boulardii 250 mg capsule (Daily Probiotic (S. boulardii)) 250 mg PO DAILY 11/01/23 calcium carbonate-vitamin D3 500 mg (1,250 mg)-50 unit capsule 1 cap PO DAILY 11/01/23 cilostazol 50 mg tablet 50 mg PO BID 11/01/23 lorazepam 0.5 mg tablet 0.25 mg PO BEDTIME insomnia 11/01/23 pantoprazole 40 mg tablet,delayed release (Protonix) 40 mg PO QAM 11/01/23 Discharge Plan Discharge Discharge Orders: Discharge Patient (ONCE); Ordered 11/04/23 Ordered By: CORDELL MILNER Patient Disposition: [facility]OSPICE Prescriptions: No Action nitroglycerin [Nitrostat] 0.4 mg Tablet, Sublingual 0.4 mg sublingual Q5MIN X 3 DOSES PRNQty: 30 0RF [place] Nasal 0.65 % Aerosol,[place] 2 spray intranasal PRN PRNQty: 100 0RF furosemide [Lasix] 20 mg tablet 20 mg PO DAILY Qty: 30 0RF cephalexin 500 mg capsule 500 mg PO BID Qty: 14 0RF methylprednisolone [Medrol (Eze)] 4 mg tablets,dose pack See Rx Instructions .ROUTE .COMPLEX Qty: 21 0RF Rx Instructions: orally per package directions Eliquis 5 mg tablet 5 mg PO BID Qty: 30 0RF Rx Instructions: Twice a day for the first 7 days and then daily after hydrocodone-acetaminophen 5-325 mg tablet 1 tab PO Q4-6H PRN (Reason: pain) Qty: 30 0RF amiodarone 200 mg tablet 200 mg PO BID aspirin 81 mg tablet,chewable 81 mg PO DAILY atorvastatin 80 mg tablet 80 mg PO BEDTIME polyethylene glycol 3350 17 gram powder in packet 17 g PO DAILY PRN (Reason: constipation) albuterol sulfate 90 mcg/actuation HFA aerosol inhaler 2 inh inhalation Q6H PRN (Reason: shortness of breath or wheezing) buspirone 30 mg tablet 30 mg PO BID cetirizine 10 mg tablet 10 mg PO DAILY metoprolol succinate 50 mg tablet extended release 24 hr 50 mg PO DAILY multivitamin Tablet 1 tab PO DAILY cholecalciferol (vitamin D3) 50 mcg (2,000 unit) capsule 50 mcg PO DAILY vitamin B complex Tablet 1 tab PO DAILY sucralfate [Carafate] 1 gram tablet 1 g PO .achs calcium 500 mg tablet 500 mg PO DAILY acetaminophen 325 mg capsule 650 mg PO Q6H PRN (Reason: fever or pain) valsartan 40 mg tablet 40 mg PO DAILY Qty: 30 0RF Rx Instructions: IN PLACE OF ENTRESTO ipratropium-albuterol 0.5 mg-3 mg(2.5 mg base)/3 mL solution for nebulization 3 ml inhalation Q4H PRN (Reason: Shortness Of Breath Or Wheezing) Qty: 30 0RF cilostazol 50 mg tablet 50 mg PO BID calcium carbonate-vitamin D3 500 mg(1,250mg) -50 unit capsule 1 cap PO DAILY lorazepam 0.5 mg Tablet 0.25 mg PO BEDTIME pantoprazole [Protonix] 40 mg tablet,delayed release (DR/EC) 40 mg PO QAM Saccharomyces boulardii [Daily Probiotic (S. boulardii)] 250 mg capsule 250 mg PO DAILY Did you review [place] [employer] for ALL controlled substances?: Not Applicable Discussed opioids are addictive and Narcan is available by prescription or from pharmacy.: No Condition: Fair
== END 2023-11-04 14:16 | disposition hospice, inpatient (51) | DRG 189 ==
LOC: ED 00:05 → MEDSURG B 01:42
PROVIDERS: ADMIT Hospitalist; ATTEND Physician Assistant
DX: N17.9 Acute kidney failure, unspecified; Z20.822 Contact with and (suspected) exposure to COVID-19; J18.9 Pneumonia, unspecified organism; I26.99 Other pulmonary embolism without acute cor pulmonale; R51.9 Headache, unspecified; I50.9 Heart failure, unspecified; N39.0 Urinary tract infection, site not specified; B96.20 Unspecified Escherichia coli [E. coli] as the cause of diseases classified elsewhere; J96.01 Acute respiratory failure with hypoxia

== ENCOUNTER 2023-11-04 14:20 | Inpatient (IN) ==
[2023-11-04] MEDS ORDERED: MORPHINE 4 MG/ML SYRINGE IVP PRN (14:40)
[2023-11-04] MEDS ORDERED: ZOFRAN 4 MG/2 ML IVP PRN (14:40)
[2023-11-04] MEDS ORDERED: TRANSDERM-SCOP 1.5 MG PATCH TD PRN (14:48)
[2023-11-04] MEDS ORDERED: ROBINOL IVP PRN (14:49)
--- NOTE | 2023-11-04 14:54 | PCM ---
Date of Service Date Seen by Provider: 11/04/23 Time Seen by Provider: 08:30 Admit Day/Time Admission Date: 11/04/23 Admission Time: 14:46 Reason for Admission Chief Complaint: ACUTE RESPIRATORY FAILURE Hospital Provider Hospital Provider: CORDELL MILNER PA-C, [facility] [place] Primary Care Physician Primary Care Physician: JAIRON ROJAS History of Present Illness History of Present Illness: 87 yo female presented to the ER after multiple hospitalizations over the past month for shortness of breath. O2 sat was found to be the 70s. Patient states she told the senior living she did not want anything done but they sent her in anyway. Chest x-ray showed persistent pneumonia. Admitted as inpatient. Patient did not wish to be on any medications to prolong her life. Patient and framily requested to take the patient to her home on hospice. Requesting [facility] first and then attempt other companies if unable to take her. Patient has hospital bed at home but no mattress. Patient received morphine, fentanyl, and ativan prn per patient and family wishes to keep her comfortable. Hospice evaluated patient on Thursday and did not feel she met criteria for GIP. They reevaluated on Thursday and agree with admission to [facility]. She will change status to hospice inpatient today. Family at bedside. [facility] Medical History TIA (transient ischemic attack) G45.9 - Transient cerebral ischemic attack, unspecified (ICD-10) FHx: cholecystectomy Z83.79 - Family history of other diseases of the digestive system (ICD-10) Cataract H26.9 - Unspecified cataract (ICD-10) Thyroid disease E07.9 - Disorder of thyroid, unspecified (ICD-10) Stroke I63.9 - Cerebral infarction, unspecified (ICD-10) Osteoarthritis M19.90 - Unspecified osteoarthritis, unspecified site (ICD-10) Obesity E66.9 - Obesity, unspecified (ICD-10) CHF (congestive heart failure) I50.9 - Heart failure, unspecified (ICD-10) Melanoma C43.9 - Malignant melanoma of skin, unspecified (ICD-10) Hyperlipidemia E78.5 - Hyperlipidemia, unspecified (ICD-10) ABDIRASHID (generalized anxiety disorder) F41.1 - Generalized anxiety disorder (ICD-10) Depressed F32.A - Depression, unspecified (ICD-10) Allergic rhinitis J30.9 - Allergic rhinitis, unspecified (ICD-10) Cervical radiculopathy M54.12 - Radiculopathy, cervical region (ICD-10) COPD (chronic obstructive pulmonary disease) J44.9 - Chronic obstructive pulmonary disease, unspecified (ICD-10) Afib I48.91 - Unspecified atrial fibrillation (ICD-10) Hypertension I10 - Essential (primary) hypertension (ICD-10) GERD (gastroesophageal reflux disease) K21.9 - Gastro-esophageal reflux disease without esophagitis (ICD-10) MARCELO (obstructive sleep apnea) G47.33 - Obstructive sleep apnea (adult) (pediatric) (ICD-10) Surgical History Status post cardiac catheterization Z98.890 - Other specified postprocedural states (ICD-10) 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) H/O total hysterectomy Z90.710 - Acquired absence of both cervix and uterus (ICD-10) Family History FATHER Heart disease Mother Heart disease Social History (Updated 11/04/23 @ 15:22 by NIKIA WHALEY RN) Smoking and tobacco status: Never smoker Alcohol intake: never Substance use type: does not use Allergies Allergies Allergy/AdvReac Type Severity Reaction Status Date / Time escitalopram [From Lexapro] AdvReac Unknown Verified 11/01/23 01:06 SERTRALINE AdvReac Unknown Uncoded 11/01/23 01:06 Current Medications Home Medications albuterol sulfate 90 mcg/actuation aerosol inhaler 2 inh inhalation Q6H PRN shortness of breath or wheezing 09/30/23 [History Confirmed 11/01/23 Last Taken Unknown] amiodarone 200 mg tablet 200 mg PO BID 09/30/23 [History Confirmed 11/01/23 Last Taken 10/09/23 08:00] aspirin 81 mg chewable tablet 81 mg PO DAILY 09/30/23 [History Confirmed 11/01/23 Last Taken 10/09/23 08:00] atorvastatin 80 mg tablet 80 mg PO BEDTIME 09/30/23 [History Confirmed 11/01/23 Last Taken 10/09/23 08:00] buspirone 30 mg tablet 30 mg PO BID 09/30/23 [History Confirmed 11/01/23 Last Taken 10/09/23 08:00] cetirizine 10 mg tablet 10 mg PO DAILY allergy symptoms 09/30/23 [History Confirmed 11/01/23 Last Taken Unknown] cholecalciferol (vitamin D3) 50 mcg (2,000 unit) capsule 50 mcg PO DAILY 09/30/23 [History Confirmed 11/01/23 Last Taken 10/08/23 08:00] metoprolol succinate 50 mg tablet,extended release 24 hr 50 mg PO DAILY 09/30/23 [History Confirmed 11/01/23 Last Taken 10/09/23 08:00] multivitamin 1 tab PO DAILY 09/30/23 [History Confirmed 11/01/23 Last Taken 10/09/23 08:00] polyethylene glycol 3350 17 gram oral powder packet 17 g PO DAILY PRN constipation 09/30/23 [History Confirmed 11/01/23 Last Taken 10/08/23 09:00] vitamin B complex 1 tab PO DAILY 09/30/23 [History Confirmed 11/01/23 Last Taken 10/09/23 08:00] calcium 500 mg tablet 500 mg PO DAILY 10/05/23 [History Confirmed 11/01/23 Last Taken 10/09/23 08:00] sucralfate 1 gram tablet (Carafate) 1 g PO .achs 10/05/23 [History Confirmed 0 11/01/23 Last Taken 10/09/23 18:00] acetaminophen 325 mg capsule 650 mg PO Q6H PRN fever or pain 10/13/23 [History Confirmed 11/01/23 Last Taken Unknown] ipratropium 0.5 mg-albuterol 3 mg (2.5 mg base)/3 mL nebulization soln 3 ml inhalation Q4H PRN Shortness Of Breath Or Wheezing #30 mL 10/23/23 [Rx Confirmed 11/01/23 Last Taken Unknown] valsartan 40 mg tablet 40 mg PO DAILY #30 tabs 10/23/23 [Rx Confirmed 11/01/23 Last Taken Unknown] apixaban 5 mg tablet (Eliquis) 5 mg PO BID #30 tabs 10/30/23 [Rx Confirmed 11/01/23 Last Taken Unknown] cephalexin 500 mg capsule 500 mg PO BID #14 caps 10/30/23 [Rx Confirmed 11/01/23 Last Taken Unknown] furosemide 20 mg tablet (Lasix) 20 mg PO DAILY #30 tabs 10/30/23 [Rx Last Taken Unknown] hydrocodone 5 mg-acetaminophen 325 mg tablet 1 tab PO Q4-6H PRN pain #30 tabs 10/30/23 [Rx Last Taken Unknown] methylprednisolone 4 mg tablets in a dose pack (Medrol (Eze)) See Rx Instructions PO .COMPLEX #21 ea 10/30/23 [Rx Last Taken Unknown] nitroglycerin 0.4 mg sublingual tablet (Nitrostat) 0.4 mg sublingual Q5MIN X 3 DOSES PRN #30 tabs 10/30/23 [Rx Last Taken Unknown] sodium chloride 0.65 % nasal spray aerosol (Deep Sea Nasal) 2 spray intranasal PRN PRN #100 mL 10/30/23 [Rx Last Taken Unknown] Saccharomyces boulardii 250 mg capsule (Daily Probiotic (S. boulardii)) 250 mg PO DAILY 11/01/23 [History Confirmed 11/01/23 Last Taken Unknown] calcium carbonate-vitamin D3 500 mg (1,250 mg)-50 unit capsule 1 cap PO DAILY 11/01/23 [History Confirmed 11/01/23 Last Taken Unknown] cilostazol 50 mg tablet 50 mg PO BID 11/01/23 [History Confirmed 11/01/23 Last Taken Unknown] lorazepam 0.5 mg tablet 0.25 mg PO BEDTIME insomnia 11/01/23 [History Confirmed 11/01/23 Last Taken Unknown] pantoprazole 40 mg tablet,delayed release (Protonix) 40 mg PO QAM 11/01/23 [History Confirmed 11/01/23 Last Taken Unknown] Home Glycopyrrolate (Glycopyrrolate 0.2 Mg/Ml 5 Ml Mdv) 0.2 mg IVP Q8HR PRN PRN Reason: secretions Lorazepam (Lorazepam Inj 2 Mg/Ml Vial) 2 mg IVP Q2HR PRN PRN Reason: Agitation Morphine Sulfate (Morphine Sulfate 4 Mg/Ml Syringe) 4 mg IVP Q4H HOLLY Morphine Sulfate (Morphine Sulfate 4 Mg/Ml Syringe) 4 mg IVP Q2H PRN PRN Reason: MODERATE PAIN Ondansetron HCl (Ondansetron Hcl/Pf 4 Mg/2 Ml Sdv) 4 mg IVP Q6H PRN PRN Reason: Nausea / Vomiting Scopolamine HBr (Scopolamine Hydrobromide 1.5 Mg Patch.Td72) 1 patch TD Q72H PRN PRN Reason: secretions Opioid Naive vs. Tolerant Does Patient Take Opioids?: No Is Patient Opioid Naive?: Yes What is Opioid Naive?: *Opioid Naive implies the patient is not already taking opioids or not chronically receiving opioids on a daily basis. *PRN dosing is not "usually" associated with tolerance. *Patients are at higher risk of over-sedation and aspiration. Is Patient Opioid Tolerant?: No What is Opioid Tolerant?: *Opioid Tolerance implies less than the expected response to an opioid. *Acquired tolerance is defined by the patient taking 60mg of oral morphine daily (or equianalgesic dose of another opioid) for 1 week or more. *Often associated with chronic pain. *May take more than usual dose to achieve desired pain control. Review of Systems Constitutional: Reports Weakness and Loss of appetite Cardiovascular: Denies Chest pain or Chest Pressure Respiratory: Reports Cough and Shortness of air Gastrointestinal: Denies Nausea, Vomiting, Diarrhea or Abdominal pain Genitourinary: Reports Incontinent Bladder; Denies Dysuria or Frequency Neurological: Reports Weakness Physical examination Most Recent Vital Signs: Most Recent Vital Signs Telemetry Heart Rate 83 11/04/23 12:57 Telemetry SPO2 91 L 11/04/23 12:57 Appearance: Positive No Apparent Distress, Ill-Appearing and Other (+lethargic. ) Skin: Negative Rashes HEENT: Positive Normocephalic and Atraumatic Neck: Positive Supple and Midline Trachea Chest/Lungs: Positive Other (+mildly labored breathing this morning. ) Heart: Positive RRR GI/: Positive Soft, Nontender, Bowel Sounds Normal and No Distention Extremities: Positive Edema Neurological: Positive Other (+very weak, bedbound ) Psychiatric: Positive Other (+pt is oriented and at times becomes alert enough to converse, has some transient confusion as well. ) Review Statement Review Statement: I have independently reviewed and interpreted the labs/EKGs/imaging that were ordered by the ER provider. I have reviewed all outside records that are available currently in our EMR including imaging/notes/labs from previous visits. Plan Plan: 1. Palliative/Comfort Care 2. Acute on chronic Hypoxic Respiratory Failure 3. Persistent Pneumonia 4. Acute Pulmonary Embolism 5. UTI d/t E. Coli 6. Acute CHF exacerbation 7. BRENDA Admitted to inpatient hospice today with [facility]. Morphine, ativan, robinol, scopolamine patch, zofran ordered. Continue IV and silver. Pleasure feeds if wanted. See hospice nurse written orders as well. Time Spent: Greater than 80 minutes spent with patient, 50% of the time spent with this patient was devoted to counseling and coordination of care. [facility] minutes spent discussing advance care planning. COMFORT MEASURES ONLY Admit to: INPATIENT HOSPICE Discussed Plan of Care with Dr. Bernardo WOLFF. Medications Medication Orders: Medications Ordered Category Date Time Status Glycopyrrolate [Robinol] Meds 11/04/23 14:49 Ordered 0.2 mg IVP Q8HR PRN Lorazepam [Ativan] Meds 11/04/23 14:40 Ordered 2 mg IVP Q2HR PRN Morphine Sulfate [Morphine 4 mg/ml Syringe] Meds 11/04/23 14:40 Ordered 4 mg IVP Q2H PRN Morphine Sulfate [Morphine 4 mg/ml Syringe] Meds 11/04/23 15:00 Ordered 4 mg IVP Q4H Ondansetron HCl/Pf [Zofran 4 mg/2 ml] Meds 11/04/23 14:40 Ordered 4 mg IVP Q6H PRN Scopolamine Hydrobromide [Transderm-Scop 1.5 mg Patch] Meds 11/04/23 14:48 Ordered 1 patch TD Q72H PRN
[2023-11-04] MEDS: MORPHINE 4 MG/ML SYRINGE IVP SCH ×3 (16:16→22:30)
[2023-11-04 16:44] VITALS: BMI 32.8
[2023-11-04] MEDS: ATIVAN IVP PRN (19:13)
[2023-11-05] MEDS: MORPHINE 4 MG/ML SYRINGE IVP SCH ×2 (03:35→06:38)
[2023-11-05 06:19] VITALS: BP 104/55; TEMP 98
[2023-11-05] MEDS: ATIVAN IVP PRN ×3 (07:33→20:36)
[2023-11-05] MEDS ORDERED: MORPHINE 4 MG/ML SYRINGE IVP PRN (10:49)
--- NOTE | 2023-11-05 10:51 | PCM.PROG ---
Date/Time Seen Date Seen by Provider: 11/05/23 Time Seen by Provider: 08:30 Provider Provider: CORDELL MILNER PA-C, [facility] Chief Complaint Chief Complaint: ACUTE RESPIRATORY FAILURE Subjective Subjective: Patient resting, breathing somewhat labored, just received IV medications. Hospice nurse just evaluated patient. Family at bedside. All questions answered. Objective Appearance: Positive No Apparent Distress Chest/Lungs: Positive Symmetrical With Equal Breath Sounds, Good Air Movement all 4 Lung Monte and Other (+mildly labored breathing ) Heart: Positive RRR and Pulses Normal GI/: Positive Soft, Nontender, Bowel Sounds Normal and No Distention Musculoskeletal: Positive Not Examined Neurological: Positive Other (+Lethargic. Does not open eyes or verbalize today. ) Additional Findings: Trace edema bilaterally Vital Signs Vital Signs: Vital Signs: Last 24 Hours 11/04/23 12:57 11/04/23 14:57 11/04/23 14:57 Temperature 97 F L Temperature Source Oral Pulse Rate 85 Pulse Rate [Apical] 80 Respiratory Rate 30 H 30 H Blood Pressure Blood Pressure Mean Blood Pressure Left Arm 138/63 Blood Pressure Location Blood Pressure Position Supine O2 Sat by Pulse Oximetry 89 L Oxygen Delivery Method Nasal Cannula Nasal Cannula Oxygen Flow Rate 4 4 Height 5 ft 6 in Weight 203 lb Telemetry Type Telemetry Monitoring Telemetry Heart Rate 83 Telemetry SPO2 91 L EKG [place] Interval EKG QRS Interval Telemetry Strip Reading 11/04/23 19:00 11/04/23 19:43 11/04/23 20:00 Temperature Temperature Source Pulse Rate Pulse Rate [Apical] 80 Respiratory Rate 20 Blood Pressure Blood Pressure Mean Blood Pressure Left Arm Blood Pressure Location Blood Pressure Position O2 Sat by Pulse Oximetry 95 Oxygen Delivery Method Nasal Cannula Nasal Cannula Oxygen Flow Rate 4 4 Height Weight Telemetry Type Remote Telemetry Telemetry Monitoring Continues Telemetry Heart Rate 85 Telemetry SPO2 95 EKG [place] Interval 0.18 EKG QRS Interval 0.09 Telemetry Strip Reading SR 11/05/23 01:00 11/05/23 06:00 11/05/23 06:00 Temperature 98.0 F Temperature Source Temporal Artery Scan Pulse Rate 84 Pulse Rate [Apical] Respiratory Rate 13 Blood Pressure 104/55 L Blood Pressure Mean 71 Blood Pressure Left Arm Blood Pressure Location Left Arm Blood Pressure Position Supine O2 Sat by Pulse Oximetry 92 L 92 L Oxygen Delivery Method Nasal Cannula Nasal Cannula Oxygen Flow Rate 4 Height Weight Telemetry Type Remote Telemetry Telemetry Monitoring Continues Telemetry Heart Rate 84 Telemetry SPO2 92 L EKG [place] Interval 0.20 EKG QRS Interval 0.08 Telemetry Strip Reading SR 11/05/23 07:00 11/05/23 10:00 Temperature Temperature Source Pulse Rate Pulse Rate [Apical] Respiratory Rate Blood Pressure Blood Pressure Mean Blood Pressure Left Arm Blood Pressure Location Blood Pressure Position O2 Sat by Pulse Oximetry 94 L Oxygen Delivery Method Nasal Cannula Oxygen Flow Rate 4 Height Weight Telemetry Type Remote Telemetry Telemetry Monitoring Continues Telemetry Heart Rate 83 Telemetry SPO2 92 L EKG [place] Interval 0.17 EKG QRS Interval 0.06 Telemetry Strip Reading SR Lab Results Lab Results: Lab Results: Last 24 Hours 10/22/23 05:04 WBC 8.94 RBC 2.80 L Hgb 8.6 L Hct 27.0 L MCV 96.4 MCH 30.7 MCHC 31.9 RDW Coeff of Shaila 12.9 Plt Count 361 Immature Gran % (Auto) 0.3 Neut % (Auto) 73.7 Lymph % (Auto) 13.4 Treasure % (Auto) 9.6 Eos % (Auto) 2.7 Baso % (Auto) 0.3 Neut # (Auto) 6.6 Lymph # (Auto) 1.2 Treasure # (Auto) 0.9 Eos # (Auto) 0.2 Baso # (Auto) 0.0 Immature Gran # (Auto) 0.0 Sodium 134.1 L Potassium 3.72 Chloride 100.6 Carbon Dioxide 28.2 Anion Gap 9.02 BUN 8.7 Creatinine 0.55 L Estimated GFR (MDRD) 104.00 BUN/Creatinine Ratio 15.81 Glucose 109.6 H Calcium 8.29 L Total Bilirubin 0.55 AST 27.5 ALT 19.0 Alkaline Phosphatase 88.8 Total Protein 6.25 L Albumin 3.28 L Globulin 2.97 Albumin/Globulin Ratio 1.10 Additional Comments Additional Comments: I have independently reviewed and interpreted the labs/EKGs/imaging ordered during this hospital stay. I have reviewed outside records that are available in our EMR that pertain to medical stay including imaging/notes/labs from previous visits. Active Medications Active Medications: Medications Generic Name Dose Route Start Last Admin Trade Name Freq PRN Reason Stop Dose Admin Glycopyrrolate 0.2 mg 11/04/23 14:49 Glycopyrrolate 0.2 Mg/Ml 5 Ml Mdv IVP Q8HR PRN secretions Lorazepam 2 mg 11/04/23 14:40 11/05/23 09:35 Lorazepam Inj 2 Mg/Ml Vial IVP 2 mg Q2HR PRN Administration Agitation Lorazepam 2 mg 11/05/23 11:00 Lorazepam Inj 2 Mg/Ml Vial IVP Q4H HOLLY Morphine Sulfate 5 mg 11/05/23 10:49 Morphine Sulfate 4 Mg/Ml Syringe IVP Q2H PRN MODERATE PAIN Morphine Sulfate 5 mg 11/05/23 14:00 Morphine Sulfate 4 Mg/Ml Syringe IVP Q4H HOLLY Ondansetron HCl 4 mg 11/04/23 14:40 Ondansetron Hcl/Pf 4 Mg/2 Ml Sdv IVP Q6H PRN Nausea / Vomiting Scopolamine HBr 1 patch 11/04/23 14:48 Scopolamine Hydrobromide 1.5 Mg Patch.Td72 TD Q72H PRN secretions Plan Plan: 1. Palliative/Comfort Care - due to multiple hospitalizations, recurrent infections of pneumonia, [place], CVA, GI bleed, and PE over the last month, she has no desire to live due to loss of her less than a year ago, requires assistance with all ADLs, and has continued to physically and functionally decline; hospice consulted, Continue meds per their recommendations 2. Acute on chronic Hypoxic Respiratory Failure 3. Persistent Pneumonia 4. Acute Pulmonary Embolism 5. UTI d/t E. Coli 6. Acute CHF exacerbation 7. BRENDA Patient does not wish to further undergo treatment of above conditions. DVT Prophylaxis: None Dispo: Pt is inpatient hospice. Review Statement Review Statement: I have personally discussed and reviewed the patient's visit/currently labs/imaging/decision making with Dr. Rubio, my supervising attending. Greater that 50 minutes spent with patient, 50% of the time spent with this patient was devoted to counseling and coordination of care.
[2023-11-05] MEDS ORDERED: MORPHINE 2 MG/ML SYRINGE IVP PRN (10:56)
[2023-11-05] MEDS: ATIVAN IVP SCH ×4 (11:35→23:22)
[2023-11-05] MEDS: MORPHINE 2 MG/ML SYRINGE IVP SCH ×3 (13:42→22:20)
[2023-11-05] MEDS ORDERED: MORPHINE 4 MG/ML SYRINGE IVP SCH (14:00)
[2023-11-06] MEDS: MORPHINE 2 MG/ML SYRINGE IVP SCH ×2 (01:49→05:32)
[2023-11-06] MEDS: ATIVAN IVP SCH ×2 (03:19→06:35)
[2023-11-06 09:39] VITALS: PULSE 86; RESP 14
--- NOTE | 2023-11-06 10:28 | DCSUM ---
Admission Date Admission Date: 11/04/23 Discharge Date Discharge Date: 11/06/23 Admission Diagnosis Admission Diagnosis: 1. Palliative/Comfort Care 2. Acute on chronic Hypoxic Respiratory Failure 3. Persistent Pneumonia 4. Acute Pulmonary Embolism 5. UTI d/t E. Coli 6. Acute CHF exacerbation 7. BRENDA Discharge Diagnosis Discharge Diagnosis: Cause of : 1. Acute on chronic Hypoxic Respiratory Failure 2. Persistent Pneumonia 3. Acute Pulmonary Embolism 4. UTI d/t E. Coli 5. Acute CHF exacerbation 6. BRENDA Time of : 1020 on 11/06/2023 Hospital Provider Hospital Provider[facility] Primary Care Physician Primary Care Physician: JAIRON ROJAS Summary of History and Physical Summary of History and Physical: 87 yo female presented to the ER after multiple hospitalizations over the past month for shortness of breath. O2 sat was found to be the 70s. Patient states she told the [facility] she did not want anything done but they sent her in anyway. Chest x-ray showed persistent pneumonia. Admitted as inpatient. Patient did not wish to be on any medications to prolong her life. Patient and family requested to take the patient to her home on hospice. Requesting [facility] first and then attempt other companies if unable to take her. Patient has hospital bed at home but no mattress. Patient received morphine, fentanyl, and ativan prn per patient and family wishes to keep her comfortable. Family decided they would like for her to stay in the hospital for her end of life care. Hospice evaluated patient on Thursday and did not feel she met criteria for GIP. They reevaluated on Thursday, 11/04 and agree with admission to [facility]. She will change status to hospice inpatient. Family at bedside. Hospital Course Subjective: Patient remained on hospice care and was given medications when needed for her comfort. She peacefully passed at 1020 on 11/06/2023 with family at bedside. Additional Findings: Patient in asystole on tele. No heart sounds or lung sounds noted on auscultation. Family at bedside. Vital Signs: Most Recent Vital Signs Temperature 98.0 F 11/05/23 06:00 Temperature Source Tympanic 11/05/23 17:33 Pulse Rate 86 11/06/23 08:00 Respiratory Rate 14 11/06/23 08:00 Blood Pressure 104/55 L 11/05/23 06:00 Blood Pressure Mean 71 11/05/23 06:00 Blood Pressure Left Arm 138/63 11/04/23 14:57 Blood Pressure Location Left Arm 11/05/23 06:00 Blood Pressure Position Supine 11/05/23 06:00 O2 Sat by Pulse Oximetry 86 L 11/05/23 20:00 Oxygen Delivery Method Nasal Cannula 11/06/23 09:21 Oxygen Flow Rate 4 11/06/23 09:21 Height 5 ft 6 in 11/04/23 14:57 Weight 203 lb 11/04/23 14:57 Telemetry Type Remote Telemetry 11/06/23 07:00 Telemetry Monitoring Continues 11/06/23 07:00 Telemetry Heart Rate 69 11/06/23 07:00 Telemetry SPO2 89 L 11/06/23 07:00 EKG [place] Interval 0.18 11/06/23 07:00 EKG QRS Interval 0.08 11/06/23 07:00 Telemetry Strip Reading NSR 11/06/23 07:00 Discharge Instructions Discharge Planning: Discharge Planning > [address] Bernardo Rubio. Discharge Medications: Medications at Discharge (Home Meds & RX) Discharge Plan Discharge Discharge Orders: Discharge Patient (ONCE); Ordered 11/06/23 Ordered By: CORDELL MILNER Patient Disposition: Did you review [place] [employer] for ALL controlled substances?: Not Applicable Discussed opioids are addictive and Narcan is available by prescription or from pharmacy.: No Date/Time: 11/06/23 10:20
== END 2023-11-06 12:10 | disposition expired | DRG 951 ==
LOC: MEDSURG B 14:20
PROVIDERS: ADMIT Hospitalist; ATTEND Physician Assistant